=== PATIENT | female | born 1950 | race Caucasian/White ===

== ENCOUNTER → 2016-10-03 | Outpatient (CLI) | payer OTHER, MEDICARE ==
[~2016-10-03] MED LIST: ATEN-175 PO; CALCTAB5 PO; CHOL1000 PO; CIPR1TAB10 PO; ERGO1CAP35 PO; LEVO50TA6 PO; OMEP10CA4 PO; OMEP20TA; OXYC-57 PO; PSYL55.43 PO
--- NOTE | 2016-10-03 14:41 | DIAGNOSTIC IMAGING REPORT ---
L-SPINE MIN 4 VIEWS ROUTINE CLINICAL HISTORY: Low back pain. COMPARISON: CT of the abdomen and pelvis April 15, 2013. FINDINGS: Alignment of the lumbar spine is anatomic. No acute fracture is identified. Slight concavity of several endplates is likely chronic and related to degenerative disc disease. Mild to moderate multilevel degenerative disc disease and facet arthrosis is present. IMPRESSION: 1. Mild to moderate multilevel degenerative disc disease and facet arthrosis of the lumbar spine. 2. No acute lumbar spine fracture or subluxation identified. Electronically signed by: Florentino Cervantes M.D. 10/03/2016 2:39 PM Dictated Date/Time: 10/03/2016 2:37 PM
== END | disposition home or self-care (01) ==
LOC: C.RADBC 14:18
PROVIDERS: ATTEND Internal Medicine Geriatric Medicine
DX: M54.5 Low back pain (principal); M51.36 Other intervertebral disc degeneration, lumbar region

== ENCOUNTER 2016-12-08 00:57 | Inpatient (IN) | payer OTHER, MEDICARE ==
[2016-12-08] VITALS (10 sets, daily range): BP systolic 118–169; BP diastolic 70–110; PULSE 64–102; TEMP 34.6–36.7; O2SAT 92–99; Ht 162.6 cm; Wt 109.0 kg
[~2016-12-08] VITALS: Ht 162.6 cm; Wt 109.0 kg
[~2016-12-08 00:57] MED LIST changes: -CHOL1000 PO; -CIPR1TAB10 PO; -OMEP10CA4 PO; -OXYC-57 PO
[2016-12-08] MEDS ORDERED: ONDANSETRON INJ 2 MG/ML 2 ML VIAL ONE ×2 (01:23→12:56)
[2016-12-08] MEDS ORDERED: SODIUM CHLORIDE 0.9% 1000ML 1,000 ML IV STA (01:52)
[2016-12-08] MEDS ORDERED: MoRPHine SULFATE 4 MG/ML 1 ML CARP\\VIAL IV STA (01:52)
[2016-12-08] MEDS ORDERED: SODIUM CHLORIDE 0.9% 500ML 500 ML IV STA (01:52)
[2016-12-08] MEDS ORDERED: ONDANSETRON INJ 2 MG/ML 2 ML VIAL IV STA (01:52)
--- NOTE | 2016-12-08 01:53 | EMERGENCY ROOM VISIT NOTE ---
History Report prepared by Mook: Katie Caballero Under the Supervision of: Dr. Saritha Morley M.D. First contact with patient: 01:07 Chief Complaint: ABDOMINAL PAIN Stated Complaint: SEVERE ABDOMINAL PAIN,VOMITING Nursing Triage Summary: pt reports NV with abdominal cramps started at 2300, pain radiates to back, denies urinary sx at this time History of Present Illness The patient is a 66 year old female who presents to the Emergency Room with complaints of intermittent, worsening, severe generalized abdominal cramps starting about 2 hours ago. She also complains of mid-lower back pain. She also reports occasional left sided chest pain. She describes it as contractions. The pain lasts for about 5-10 minutes at a time and she can almost time it. She currently rates a pain intensity of 8/10. She has worsening pain with lying down in a supine position. She has pain improvement with sitting up and bending forward. She has not taken anything for the pain. She has had 4 vomiting episodes since the onset of the pain. She describes the emesis to be watery and orange in quality. She has a history of similar symptoms occurring about a month ago which lasted for about an hour. The pain had resolved at the time with Tylenol. She denies any recent ill contacts or new foods. She denies any fevers, chills, jaw pain, arm pain, diaphoresis, shortness of breath, urinary symptoms, lower extremity edema, or any other complaints. She has a history of hypertension and hypercholesteremia. She denies any history of cholecystectomy. Source of History: patient Onset: about 2 hours ago Position: abdomen (generalized) Symptom Intensity: 8/10 Quality: cramping Timing: intermittent, worsening Modifying Factors (Worsening): other (lying down in a supine position) Modifying Factors (Relieving): other (sitting up and bending forward) Associated Symptoms: + back pain, + chest pain, + vomiting, No SOB, No chills, No diaphoresis, No fevers, No urinary symptoms Review of Systems See HPI for pertinent positives & negatives. A total of 10 systems reviewed and were otherwise negative. Past Medical & Surgical Medical Problems: (1) Benign hypertension (2) Hernia of small intestine (3) Hypercholesteremia (4) Hypertension (5) Replacement of total knee joint (6) Urinary symptom or sign (7) Ventral hernia without obstruction or gangrene Family History Heart disease Hypertension Social History Smoking Status: Never Smoker Marital Status: Housing Status: lives with family Occupation Status: retired Current/Historical Medications Scheduled Atenolol (Tenormin), 100 MG PO DAILY Cholecalciferol (Vitamin D3), 1,000 UNITS PO DAILY Levothyroxine Sodium (Levothyroxine Sodium), 50 MCG PO DAILY Omeprazole (Prilosec), 10 MG PO QAM Allergies Coded Allergies: Ramipril (Verified Allergy, Severe, ANGIOEDEMA, 12/08/16) Amlodipine (Verified Allergy, Unknown, unknown, 12/08/16) Chlorthalidone (Verified Allergy, Unknown, unknown, 12/08/16) Doxycycline (Verified Allergy, Unknown, unknown, 12/08/16) Spironolactone (Verified Allergy, Unknown, unknown, 12/08/16) Valsartan (Verified Allergy, Unknown, unknown, 12/08/16) Lisinopril (Verified Adverse Reaction, Unknown, HEADACHE, 12/08/16) Uncoded Allergies: PENICILLILN (Allergy, Unknown, unknown, 12/08/16) SULFA (Allergy, Unknown, hives, 04/11/14) Physical Exam Vital Signs Date Time Temp Pulse Resp B/P Pulse Ox O2 Delivery O2 Flow Rate FiO2 12/08/16 00:59 62 20 191/96 97 Room Air Physical Exam Vital signs reviewed. General: Elderly, well-appearing, in no significant distress. HEENT: No scleral icterus, PERRLA, neck supple. Atraumatic. Cardiovascular: Regular rate and rhythm, no extra sounds. Pulmonary: Clear to auscultation bilaterally, normal work of breathing. Abdomen: Obese, soft, tenderness to palpation in the epigastric region and right upper quadrant, nondistended, positive bowel sounds. Umbilical hernia approximately 3-4 cm, mildly tender, easily reducible, no tympany to percussion. Musculoskeletal: Atraumatic, no peripheral edema. Neurologic: Patient awake alert and oriented x 3 Skin: Warm, dry, no rash Medical Decision & Procedures ER Provider Diagnostic Interpretation: X-ray results as stated below per interpretation by me: CHEST/ABDOMEN X-RAY Clear, non-obstructive, bowel gas pattern. CT and US results as stated below per my review and radiologist interpretation: US RUQ Question fatty infiltration of the liver. Sludge. Negative sonographic [place] . No gallbladder wall thickening. Remainder of examination is within normal limits. Radiologist: Kurt Taveras MD CT ABDOMEN AND PELVIS A short segment of small bowel herniates through a small defect in the ventral abdominal wall. At this site, the small bowel demonstrates wall thickening with surrounding mesenteric edema/stranding. This may be secondary to early strangulation. Correlate with site of pain. Surgical consultation recommended. The exiting loop of bowel is decompressed while be approaching loop of bowel is mildly prominent and fluid-filled. No rafi dilatation to suggest obstruction at this time. Remainder of examination shows no definite evidence for an additional acute inflammatory process. Radiologist: Kurt Taveras MD Laboratory Results 12/08/16 01:15 Red Blood Count 5.79, Mean Corpuscular Volume 86.4, Mean Corpuscular Hemoglobin 30.2, Mean Corpuscular Hemoglobin Concent 35.0, Mean Platelet Volume 11.0, Neutrophils (%) (Auto) 74.4, Lymphocytes (%) (Auto) 17.6, Monocytes (%) (Auto) 6.8, Eosinophils (%) (Auto) 0.8, Basophils (%) (Auto) 0.2, Neutrophils # (Auto) 9.58, Lymphocytes # (Auto) 2.27, Monocytes # (Auto) 0.87, Eosinophils # (Auto) 0.10, Basophils # (Auto) 0.03 12/08/16 01:15 Test 12/08/16 01:15 12/08/16 02:18 12/08/16 03:30 12/08/16 04:58 White Blood Count 12.87 K/uL (4.8-10.8) Red Blood Count 5.79 M/uL (4.2-5.4) Hemoglobin 17.5 g/dL (12.0-16.0) Hematocrit 50.0 % (37-47) Mean Corpuscular Volume 86.4 fL (80-100) Mean Corpuscular Hemoglobin 30.2 pg (25-34) Mean Corpuscular Hemoglobin Concent 35.0 g/dl (32-36) Platelet Count 268 K/uL (130-400) Mean Platelet Volume 11.0 fL (7.4-10.4) Neutrophils (%) (Auto) 74.4 % Lymphocytes (%) (Auto) 17.6 % Monocytes (%) (Auto) 6.8 % Eosinophils (%) (Auto) 0.8 % Basophils (%) (Auto) 0.2 % Neutrophils # (Auto) 9.58 K/uL (1.4-6.5) Lymphocytes # (Auto) 2.27 K/uL (1.2-3.4) Monocytes # (Auto) 0.87 K/uL (0.11-0.59) Eosinophils # (Auto) 0.10 K/uL (0-0.5) Basophils # (Auto) 0.03 K/uL (0-0.2) RDW Standard Deviation 45.9 fL (36.4-46.3) RDW Coefficient of Variation 14.5 % (11.5-14.5) Immature Granulocyte % (Auto) 0.2 % Immature Granulocyte # (Auto) 0.02 K/uL (0.00-0.02) Anion Gap 10.0 mmol/L (3-11) Est Creatinine Clear Calc Drug Dose 54.6 ml/min Estimated GFR () 53.8 Estimated GFR (Non- 46.4 BUN/Creatinine Ratio 7.8 (10-20) Calcium Level 9.4 mg/dl (8.5-10.1) Total Bilirubin 0.6 mg/dl (0.2-1) Direct Bilirubin 0.1 mg/dl (0-0.2) Aspartate Amino Transf (AST/SGOT) 18 U/L (15-37) Alanine Aminotransferase (ALT/SGPT) 27 U/L (12-78) Alkaline Phosphatase 129 U/L (45-117) Total Creatine Kinase 82 U/L (26-192) Creatine Kinase MB 1.7 ng/ml (0.5-3.6) Creatine Kinase MB Ratio 2.1 (0-3.0) Total Protein 8.4 gm/dl (6.4-8.2) Albumin 3.8 gm/dl (3.4-5.0) Lipase 112 U/L (73-393) Bedside Troponin I 0.000 ng/ml (0-0.045) Urine Color YELLOW Urine Appearance CLEAR (CLEAR) Urine pH 6.5 (4.5-7.5) Urine Specific [place] 1.015 (1.000-1.030) Urine Protein NEG (NEG) Urine Glucose (UA) NEG (NEG) Urine Ketones NEG (NEG) Urine Occult Blood NEG (NEG) Urine Nitrite NEG (NEG) Urine Bilirubin NEG (NEG) Urine Urobilinogen NEG (NEG) Urine Leukocyte Esterase NEG (NEG) Bedside Lactic Acid Venous 1.14 mmol/L (0.90-1.70) Laboratory results per my review. Medications Administered Medications (Trade) Dose Ordered Sig/Kaylin Route Start Time Stop Time Status Last Admin Dose Admin Ondansetron HCl 4 mg 4 mg STK-MED ONCE .ROUTE 12/08/16 01:23 12/08/16 01:24 DC 12/08/16 01:23 4 MG Sodium Chloride 500 ml @ 999 mls/hr Q31M STAT IV 12/08/16 01:52 12/08/16 02:22 DC 12/08/16 01:52 999 MLS/HR Sodium Chloride (Nss 1000ml) 1,000 ml @ 125 mls/hr Q8H STAT IV 12/08/16 01:52 12/08/16 09:51 12/08/16 01:52 125 MLS/HR Morphine Sulfate 4 mg 4 mg NOW STAT IV 12/08/16 01:52 12/08/16 01:55 DC 12/08/16 01:59 4 MG Imipenem/ Cilastatin Sodium/ Dextrose (Primaxin Iv/D5 100ml) 110 ml @ 100 mls/hr NOW STAT IV 12/08/16 05:13 12/08/16 06:18 DC 12/08/16 06:16 100 MLS/HR ECG Indication: abdominal pain Rate (beats per minute): 61 Rhythm: normal sinus Findings: no ectopy, other (diffuse T wave flattening) ED Course 0107: Past medical records reviewed. The patient was evaluated in room B04B. A complete history and physical examination was performed. 0123: Zofran Inj 4 mg IV 0152: Morphine Sulfate 4 mg IV, Zofran Inj 4 mg IV, Sodium Chloride 1000 ml @ 125 mls/hr IV, Sodium Chloride 500 ml @ 999 mls/hr IV 0446: I discussed the patient's case with Dr. Barnes, general surgeon with [facility]. 0450: Upon reevaluation, the patient is resting comfortably. I discussed laboratory and radiographic results with resting comfortably. She verbalized agreement of the treatment plan. I spoke with Dr. Almeida of the [facility]. The patient will be evaluated for further management and care. Medical Decision Differential diagnosis: Etiologies such as appendicitis, diverticulitis, PUD, biliary pathology, UTI, pancreatitis, obstruction, mesenteric ischemia, aortic pathology, infections, inflammatory bowel disease, renal colic, as well as others were entertained. This patient was evaluated and appeared to be in some discomfort. IV access was obtained and laboratory work was drawn. The patient was placed on the patient monitor and found to be in a normal sinus rhythm. Physical examination reveals an obese abdomen with periumbilical hernia. This was thought to have been reduced on exam. Ultrasound of right upper quadrant reveals no acute gallbladder abnormality. CT scan of the abdomen and pelvis reveals an umbilical hernia with a loop of bowel. Patient's EKG reveals a normal sinus rhythm without ectopy or ischemia. Patient was given IV morphine and Zofran for her discomfort. Case was discussed with Dr. Barnes of general surgery who will evaluate the patient later this morning. The patient will be evaluated by the hospitalist service for admission and further management. Consults Time Called: [phone] Consulting Physician: Dr. Barnes, general surgeon with [facility] Returned Call: [phone] I discussed the patient's case with Dr. Barnes, general surgeon with [facility]. Additional Consults: Time Called: [phone] Consulted Physician: Dr. Almeida of the [facility] Returned Call: [phone] Additional Comments: [facility] Impression Primary Impression: Small bowel obstruction Additional Impression: Periumbilical hernia Scribe Attestation The scribe's documentation has been prepared under my direction and personally reviewed by me in its entirety. I confirm that the note above accurately reflects all work, treatment, procedures, and medical decision making performed by me. Departure Information Dispostion Being Evaluated By Hospitalist Referrals Rafi Borden M.D. (PCP) Patient Instructions My [facility] Problem Qualifiers
[2016-12-08 02:11] LABS: BASO % 0.2 %; BASO ABS # 0.03 K/uL (0-0.2); COMPLETE YES; EOS % 0.8 %; IG% 0.2 %; LYMPH % 17.6 %; LYMPH ABS # 2.27 K/uL (1.2-3.4); MEAN CELL VOLUME 86.4 fL (80-100); MEAN CORPUSCULAR HEMOGLOBIN 30.2 pg (25-34); MONO % 6.8 %; NEUT % 74.4 %; PLATELET COUNT 268 K/uL (130-400); RED BLOOD COUNT 5.79 M/uL (4.2-5.4); WHITE BLOOD COUNT 12.87 K/uL (4.8-10.8)
[2016-12-08 02:31] LABS: BUN/CREATININE RATIO 7.8 (10-20); CALCIUM 9.4 mg/dl (8.5-10.1); CREATININE 1.2 mg/dl (0.60-1.20); POTASSIUM 3.6 mmol/L (3.5-5.1)
[2016-12-08 02:36] LABS: CKMB/CK RATIO 2.1 (0-3.0)
[2016-12-08] MEDS ORDERED: OMEP10CA4 PO (03:23)
[2016-12-08] MEDS ORDERED: CHOL1000 PO (03:40)
[2016-12-08] MEDS ORDERED: OPTIRAY 320 IV PRN (03:45)
[2016-12-08 04:20] LABS: URINE APPEARANCE CLEAR (CLEAR); URINE BILIRUBIN NEG (NEG); URINE COLOR YELLOW; URINE NITRITE NEG (NEG); URINE PH 6.5 (4.5-7.5); URINE SPECIFIC GRAVITY 1.015 (1.000-1.030); UROBILINOGEN NEG (NEG); ZZUR CULT IF INDIC CLEAN CATCH NO
[2016-12-08 04:27] LABS: MANUAL MICROSCOPIC REQUIRED? NO; REVIEW REQ? NO
[2016-12-08] MEDS ORDERED: IMIPENEM/CILASTATIN IV 500 MG in DEXTROSE 5% 100ML 100 ML IV STA (05:13)
[2016-12-08] MEDS ORDERED: MoRPHine SULFATE 2 MG/ML CARP IV PRN (05:15)
[2016-12-08] MEDS ORDERED: MoRPHine SULFATE 4 MG/ML 1 ML CARP\\VIAL IV PRN (05:15)
[2016-12-08] MEDS ORDERED: ACETAMINOPHEN IV 100 ML IV PRN (05:15)
[2016-12-08] MEDS ORDERED: ONDANSETRON INJ 2 MG/ML 2 ML VIAL IV PRN ×2 (05:15→12:45)
[2016-12-08] MEDS ORDERED: HydrALAZINE HCL 20 MG/ML VIAL IV. PRN (05:30)
--- NOTE | 2016-12-08 05:50 | History and Physical ---
History & Physical Date & Time of Service: Dec 08, 2016 at 05:35 Chief Complaint: Severe Abdominal Pain,Vomiting Primary Care Physician: Mario Borden M.D. History of Present Illness Source: patient, spouse This patient is a 66-year-old female presents to the emergency department with complaint of intermittent, worsening, severe centralized abdominal crampy pain that began about 11:00 this evening prior to arrival. She also has mid lower back pain. The abdominal pain feels like contractions with duration of proximally 5-10 minutes at a time. She presented to the emergency department because of worsening pain and 4 vomiting episodes. She reports a similar type of symptoms occurred about 6 weeks ago, and she took ibuprofen at that time and just rested and the pain went away. She's had no recent travel, no sick contacts, and hasn't any questionable foods. She does report that she did not have much of an appetite for supper tonight and thinks that that might be the beginning of her symptoms. She does have a history of hernia repair in approximately 2012. Past Medical/Surgical History Medical Problems: (1) Benign hypertension Status: Chronic (2) Hypercholesteremia Status: Chronic (3) Hypertension Status: Chronic (4) Replacement of total knee joint Status: Resolved (5) Urinary symptom or sign Status: Resolved Family History Heart disease Hypertension Social History Smoking Status: Never Smoker Smokeless Tobacco Use: No Alcohol Use: none Drug Use: none Marital Status: Housing status: lives with family Occupational Status: retired Immunizations History of Influenza Vaccine: Yes History of Tetanus Vaccine?: Unknown History of Pneumococcal: Unknown History of Hepatitis B Vaccine: Unknown Multi-Drug Resistant Organisms History of MDRO: No Allergies Coded Allergies: Ramipril (Verified Allergy, Severe, ANGIOEDEMA, 12/08/16) Amlodipine (Verified Allergy, Unknown, unknown, 12/08/16) Chlorthalidone (Verified Allergy, Unknown, unknown, 12/08/16) Doxycycline (Verified Allergy, Unknown, unknown, 12/08/16) Spironolactone (Verified Allergy, Unknown, unknown, 12/08/16) Valsartan (Verified Allergy, Unknown, unknown, 12/08/16) Lisinopril (Verified Adverse Reaction, Unknown, HEADACHE, 12/08/16) Uncoded Allergies: PENICILLILN (Allergy, Unknown, unknown, 12/08/16) SULFA (Allergy, Unknown, hives, 04/11/14) Home Medications Scheduled Atenolol (Tenormin), 100 MG PO DAILY Cholecalciferol (Vitamin D3), 1,000 UNITS PO DAILY Levothyroxine Sodium (Levothyroxine Sodium), 50 MCG PO DAILY Omeprazole (Prilosec), 10 MG PO QAM Review of Systems The patient denies chest pain, palpitations, shortness of breath, cough, lower extremity swelling, vision change, hearing change, sore throat, fevers, chills, sweats, weight change, blood in urine or stool, dysuria, urinary frequency or urgency, lightheadedness, dizziness, headache, memory loss, rash, abnormal bruising or bleeding, imbalance, focal or generalized weakness, numbness or tingling in arms or legs, arthralgias or myalgias, neck pain, night sweats, or allergy symptoms. The review of systems is otherwise negative other than for that already noted above, and at least 10 systems have been reviewed. Physical Exam Vital Signs Date Time Temp Pulse Resp B/P Pulse Ox O2 Delivery O2 Flow Rate FiO2 12/08/16 00:59 62 20 191/96 97 Room Air The patient is awake, well-developed and adequately nourished, alert and oriented 3, normocephalic and atraumatic, lying in bed and in no acute distress. HEENT--PERRL, EOMI, mucous membranes and oropharynx dry. Neck--supple, no JVD or bruits, thyroid normal, trachea midline, no adenopathy. Heart--normal S1 and S2, no extra beats, no murmurs, rubs or gallops. Lungs--clear bilaterally with good air movement, no respiratory distress, no accessory muscle use. Abdomen--normal bowel sounds and soft, mild supraumbilical tenderness and nondistended, ventral hernia has been reduced by ED staff. Extremities--no cyanosis, clubbing or edema. There are good distal pulses b/l. Dermatologic--normal skin turgor, normal color, warm and dry, no abnormal lymph nodes, no rash. Neurologic--cranial nerves II through XII grossly intact, motor and sensory examination normal. Rheumatologic--normal range of motion, nontender, muscles and joints. Psychiatric--normal affect. Diagnostics Laboratory Results Results Past 24 Hours Test 12/08/16 01:15 12/08/16 02:18 12/08/16 03:30 12/08/16 04:58 Range/Units White Blood Count 12.87 4.8-10.8 K/uL Red Blood Count 5.79 4.2-5.4 M/uL Hemoglobin 17.5 12.0-16.0 g/dL Hematocrit 50.0 37-47 % Mean Corpuscular Volume 86.4 80-100 fL Mean Corpuscular Hemoglobin 30.2 25-34 pg Mean Corpuscular Hemoglobin Concent 35.0 32-36 g/dl Platelet Count 268 130-400 K/uL Mean Platelet Volume 11.0 7.4-10.4 fL Neutrophils (%) (Auto) 74.4 % Lymphocytes (%) (Auto) 17.6 % Monocytes (%) (Auto) 6.8 % Eosinophils (%) (Auto) 0.8 % Basophils (%) (Auto) 0.2 % Neutrophils # (Auto) 9.58 1.4-6.5 K/uL Lymphocytes # (Auto) 2.27 1.2-3.4 K/uL Monocytes # (Auto) 0.87 0.11-0.59 K/uL Eosinophils # (Auto) 0.10 0-0.5 K/uL Basophils # (Auto) 0.03 0-0.2 K/uL RDW Standard Deviation 45.9 36.4-46.3 fL RDW Coefficient of Variation 14.5 11.5-14.5 % Immature Granulocyte % (Auto) 0.2 % Immature Granulocyte # (Auto) 0.02 0.00-0.02 K/uL Sodium Level 139 136-145 mmol/L Potassium Level 3.6 3.5-5.1 mmol/L Chloride Level 101 98-107 mmol/L Carbon Dioxide Level 28 21-32 mmol/L Anion Gap 10.0 3-11 mmol/L Blood Urea Nitrogen 9 7-18 mg/dl Creatinine 1.20 0.60-1.20 mg/dl Est Creatinine Clear Calc Drug Dose 54.6 ml/min Estimated GFR () 53.8 Estimated GFR (Non- 46.4 BUN/Creatinine Ratio 7.8 10-20 Random Glucose 107 70-99 mg/dl Calcium Level 9.4 8.5-10.1 mg/dl Total Bilirubin 0.6 0.2-1 mg/dl Direct Bilirubin 0.1 0-0.2 mg/dl Aspartate Amino Transf (AST/SGOT) 18 15-37 U/L Alanine Aminotransferase (ALT/SGPT) 27 12-78 U/L Alkaline Phosphatase 129 45-117 U/L Total Creatine Kinase 82 26-192 U/L Creatine Kinase MB 1.7 0.5-3.6 ng/ml Creatine Kinase MB Ratio 2.1 0-3.0 Total Protein 8.4 6.4-8.2 gm/dl Albumin 3.8 3.4-5.0 gm/dl Lipase 112 73-393 U/L Bedside Troponin I 0.000 0-0.045 ng/ml Urine Color YELLOW Urine Appearance CLEAR CLEAR Urine pH 6.5 4.5-7.5 Urine Specific [place] 1.015 1.000-1.030 Urine Protein NEG NEG Urine Glucose (UA) NEG NEG Urine Ketones NEG NEG Urine Occult Blood NEG NEG Urine Nitrite NEG NEG Urine Bilirubin NEG NEG Urine Urobilinogen NEG NEG Urine Leukocyte Esterase NEG NEG Bedside Lactic Acid Venous 1.14 0.90-1.70 mmol/L EKG EKG shows normal sinus rhythm at 61 bpm, there are no acute ST-T changes. Impression Assessment and Plan This short segment of small bowel herniating through a small defect in the ventral abdominal wall--radiology reports the suggestion of a possible early strangulation, however, the hernia was reduced by the ED department and the patient's symptoms have resolved. She'll be admitted to the medical surgical floor, kept nothing by mouth, placed on normal saline with KCl 20 mEq at 100 ML' s per hour, Primaxin 500 mg IV every 6 hours, Zofran 4 mg IV every 6 hours when necessary, pantoprazole 40 mg IV daily. Surgical consult was made in the emergency department and will see the patient in the morning. Hypertension--hold atenolol 100 mg by mouth daily. Start Catapres TTS-1 patch weekly, and hydralazine 10 mg IV every 4 hours for systolic blood pressure > 150. Hypothyroidism--change levothyroxine 50 g by mouth daily to 25 g IV daily. GERD--change omeprazole 10 mg by mouth every morning to pantoprazole 40 mg IV daily. Level of Care Med/Surg Advanced Directives Existing Advance Directive: No Existing Living Will: No Existing Power of Inspector Optical Instrument: No Resuscitation Status FULL RESUSCITATION VTE Prophylaxis VTE Risk Assessment Done? Y/N: Yes Risk Level: Moderate Given or contraindicated: SCD's Social Service Consult None Apply
--- NOTE | 2016-12-08 07:32 | DIAGNOSTIC IMAGING REPORT ---
ABDOMEN AND PELVIS CT WITH IV CONTRAST CT DOSE: 1755.68 mGy.cm HISTORY: Pain. Nausea. epigastric pain and tenderness TECHNIQUE: Multiaxial CT images of the abdomen and pelvis were performed following the use of intravenous contrast. COMPARISON STUDY: 04/15/2013 FINDINGS: Periumbilical hernia containing a small medical of small bowel. This is colonic bowel pattern is nonobstructive. Liver spleen and pancreas are unremarkable. Kidneys negative for hydronephrosis. Partially obstructing. IMPRESSION: Periumbilical hernia demonstrated a small partially incarcerated loop of small bowel with partial obstructive change. Electronically signed by: Kenny Denton M.D. 12/08/2016 7:30 AM Dictated Date/Time: 12/08/2016 7:28 AM
--- NOTE | 2016-12-08 07:38 | CONSULTATION REPORT ---
DATE OF CONSULTATION: 12/08/2016 Seen in the Emergency Room at 5:30 in the morning. SUMMARY: This is a 66-year-old female. I was called by Dr. Morley after she had reduced an incarcerated umbilical hernia. She obtained a CAT scan which shows probably a loop of bowel that has been in there, maybe still some edematous. The patient's past medical history is positive for in 2012, she came in with a strangulated umbilical hernia. At that time, it was repaired with no mesh placement due to the acute situation. The patient was doing well until recently last evening when she started not feeling as well or appetite was as good, she could not really pinpoint the exact etiology, and then started to develop periumbilical pain which led to her coming to the Emergency Room with the above treatments. Her past surgical history is positive for having had some knee surgery in the past and umbilical hernia repair. She has had a history of sciatica also. SHE HAS NUMEROUS ALLERGIES THAT ARE LISTED ON THE ADMISSION SHEET. She also has significant number of medicines, which are listed in rec sheet. She does have a history of hypertension but denies any history of cardiac disease or any pulmonary disease. On admission to the Emergency Room at 4:20, her pulse was 62, respiration 20, blood pressure 191/96, O2 sats 97 on room air. Her weight is BMI of 40.6. Laboratory study showed her to have WBCs of 12.87, she does have a left shift. Chemistries: BUN of 9 and creatinine 1.20. PHYSICAL EXAMINATION: GENERAL: At this time, the patient is resting comfortable, not really complaining of any pain. HEAD: Normocephalic. EYES: PERRLA. NECK: Carotid without any bruit. There is no cervical lymphadenopathy. HEART: Normal sinus rhythm, no murmurs. LUNGS: Clear to auscultation. ABDOMEN: Soft, it is not distended. There is no tenderness. There is no cellulitis or any edema around the umbilical area. A transverse incision was used during the previous repair. On palpating that area, I could feel the defect and I am not sure if there is a loop of bowel that possibly may be in and out in that area. EXTREMITIES: Grossly normal. There is no peripheral edema. At this point, given the situation that she has had a recurrence and also was able to be reduced and there is no sign of acute strangulation, I went over with the patient and her my recommendations are to proceed with an open repair at this time while she is in a semi-quiescent state and possibly place some mesh in the area. This was gone over with the patient and her considerably. They are concerned about mesh placement due to all the advertising on television, what are its problems, but usually that is a different placement down into the pelvic area that are causing those issues. They are also aware that if primarily repair this without any mesh, there is a likelihood that she will recur again. At the present time, risks and complications were explained to the patient. It was cleared the possibility of placing a drain if she does decide for surgery and including recurrence. She is undecided at this time whether or not she wants to proceed with surgery. At this point, I told her I will put her on the operating room schedule and plan to do later on this morning. She can cancel at any time if she doesn't want surgery . KILLIAN
--- NOTE | 2016-12-08 07:42 | DIAGNOSTIC IMAGING REPORT ---
ABDOMEN 2VIEW W/PA CHEST RTN CLINICAL HISTORY: SBO dyspnea COMPARISON STUDY: No previous studies for comparison. FINDINGS: The soft tissues, psoas shadows, renal outlines and intestinal gas pattern appear normal. There is no evidence for bowel obstruction. There is no evidence for free intraperitoneal air. No abnormal abdominal calcifications are seen. A frontal view of the chest was performed and is unremarkable. IMPRESSION: Normal study. Electronically signed by: Kenny Denton M.D. 12/08/2016 7:41 AM Dictated Date/Time: 12/08/2016 7:40 AM
--- NOTE | 2016-12-08 07:44 | DIAGNOSTIC IMAGING REPORT ---
GALLBLADDER-ABD LIMITED CLINICAL HISTORY: RUQ pain TECHNIQUE: Ultrasound COMPARISON STUDY: None FINDINGS: Fatty infiltration of liver. Normal gallbladder. Trace gallbladder sludge. Common mild left 4 mm. Pancreas and right kidney unremarkable. IMPRESSION: Trace gallbladder sludge. Normal caliber bile duct. Fatty infiltration of liver. Electronically signed by: Kenny Denton M.D. 12/08/2016 7:42 AM Dictated Date/Time: 12/08/2016 7:41 AM
[2016-12-08] MEDS ORDERED: CLONIDINE HCL 0.1 MG/24 HR TRANSDERM SYS TD SCH (08:00)
[2016-12-08] MEDS ORDERED: BACITRACIN 50000 UNIT VIAL ONE (08:10)
[2016-12-08] MEDS ORDERED: BUPIVACAINE/EPINEPHRINE 0.5% MPF 1:200,000 30 ML VIAL ONE (08:11)
[2016-12-08] MEDS ORDERED: IMIPENEM/CILASTATIN CONSULT ACTIVE PRN (08:15)
[2016-12-08] MEDS: LEVOTHYROXINE SODIUM INJ 25 MCG in SYRINGE 0 ML IV SCH (09:26)
[2016-12-08] MEDS: NSS + 20MEQ KCL 1000ML 1,000 ML IV SCH ×2 (09:31→20:23)
[2016-12-08] MEDS ORDERED: MIDAZOLAM HCL 1 MG/ML 2ML VIAL ONE (11:08)
[2016-12-08] MEDS ORDERED: FENTANYL CITRATE INJ 50 MCG/1 ML 2 ML VIAL ONE (11:09)
[2016-12-08] MEDS: PANTOprazole INJ 40 MG in SYRINGE 0 ML IV SCH (11:14)
[2016-12-08] MEDS ORDERED: LACTATED RINGER'S 1000ML 1,000 ML IV PRN (12:40)
[2016-12-08] MEDS ORDERED: KETOROLAC TROMETHAMINE 15 MG/ML VIAL IV. SCH (12:45)
[2016-12-08] MEDS ORDERED: EpHEDrine SULFATE 50MG/5ML SYR ONE (12:56)
[2016-12-08] MEDS ORDERED: LIDOCAINE HCL 2% 2 ML VIAL (20MG/ML) ONE (12:56)
[2016-12-08] MEDS ORDERED: LARYING-O-JET KIT (LTA) EXT ONE ×2 (12:56)
[2016-12-08] MEDS ORDERED: NEOSTIGMINE METHYLSULFATE 5 MG/5 ML SYR ONE (12:56)
[2016-12-08] MEDS ORDERED: SUCCINYLCHOLINE CHLORIDE 20 MG/ML 10 ML VIAL IV ONE (12:56)
[2016-12-08] MEDS ORDERED: PROPOFOL IV EMULSION 10 MG/ML 20 ML VIAL IV ONE (12:56)
[2016-12-08] MEDS ORDERED: GLYCOPYRROLATE INJ 0.2 MG/ML VIAL ONE (12:56)
[2016-12-08] MEDS ORDERED: DEXAMETHASONE SOD INJ 4 MG/ML VIAL ONE (12:56)
[2016-12-08] MEDS ORDERED: ROCURONIUM BROMIDE 10 MG/ML 5 ML VIAL ONE (12:56)
--- NOTE | 2016-12-08 13:51 | [facility] Post Operative Brief Note ---
Immediate Operative Summary Operative Date Dec 08, 2016. Pre-Operative Diagnosis Umbilical hernia recurrent incarcerated Post-Operative Diagnosis Incarcerated umbilical hernia Procedure(s) Performed Umbilical hernia repair with mesh onlay(compartment seperation) Surgeon Dr Barnes [employer] Supervisor Surgeon(s) Clifton Edward PA-C/ Aline Yanes PA-C Estimated Blood Loss 10ML Findings incarcerated umbilical rec hernia defect candido 8 cm Specimens NONE Drains 2 #15 round Jose Rafael
[2016-12-08] MEDS: FENTANYL CITRATE INJ 50 MCG/1 ML 2 ML VIAL IV PRN ×3 (14:06→14:16)
--- NOTE | 2016-12-08 14:29 | Anesthesiology Progress Note ---
Anesthesia Post Op Note Date & Time Dec 08, 2016 at 14:28 Vital Signs Pain Intensity: 5 Vital Signs Past 12 Hours Date Time Temp Pulse Resp B/P Pulse Ox O2 Delivery O2 Flow Rate FiO2 12/08/16 14:25 36.2 56 14 151/72 96 Nasal Cannula 2 12/08/16 14:15 56 14 166/92 94 Nasal Cannula 2 12/08/16 14:05 72 14 176/83 98 Mask 10 12/08/16 13:57 36.2 71 14 174/83 99 Mask 10 12/08/16 11:40 36.7 60 20 134/65 96 Room Air 12/08/16 08:20 Room Air 12/08/16 06:34 36.7 69 17 143/82 98 Room Air 12/08/16 06:17 64 18 142/74 94 12/08/16 05:57 60 18 142/74 95 Room Air Notes Mental Status: alert / awake / arousable, participated in evaluation Pt Amnestic to Procedure: Yes Nausea / Vomiting: adequately controlled Pain: adequately controlled Airway Patency, RR, SpO2: stable & adequate BP & HR: stable & adequate Hydration State: stable & adequate Anesthetic Complications: no major complications apparent Pt doing well.
--- NOTE | 2016-12-08 14:40 | OPERATIVE REPORT ---
DATE OF OPERATION: 12/08/2016 PREOPERATIVE DIAGNOSIS: Recurrent umbilical hernia. POSTOPERATIVE DIAGNOSIS: Same with defect approximately 8 centimeter. PROCEDURE: Open repair with compartment separation onlay Marlex mesh. SURGEON: Dr. Barnes. SUCTION DRUM DRIER OPERATOR: Tony Edward PA-C and Aline Yanes PA-C. OPERATION AND FINDINGS: SUMMARY: The patient was brought into the operating room theater. The abdomen was scrubbed, prepped with Betadine scrubbing solution and properly draped. Systemic antibiotics had been given on the floor. At this point, we made up and down incision. Previously she had a hernia repair which was transverse supraumbilical incision, made the incision extending approximately 8-9 cm long, deepened through subcutaneous tissue. We were met with some edema in the subcutaneous tissue but no real incarcerated tissue was appreciated. The patient had the hernia sac that was adherent pretty significant almost of the subcutaneous tissue. We circumferentially started taking it down from the subQ leaving the umbilical area free. There was no violation of the umbilical opening at the skin level. Then we meticulously dissected this all out from the abdominal wall. We were able then to identify that the hernial sac was sort of multilobulated. We entered it and found that this was just omentum. There was no small bowel in the area but everything was reducible. I then closed the hernial sac with a chromic suture, was another small opening in the hernia sac was similarly closed. We were able then to try to return this all intraabdominally. I did not want to proceed and freed up from the wall of the hernial sac feeling that I would get into the bowel. Therefore, at this point, I elected to do compartment separation by first extending our dissection laterally well beyond the initial opening onto the rectus sheath. We then scored the rectus seated above and below the anterior SCDs sufficient enough that we would close this over once we freed it up from the rectus abdominis imbricating over the midline incision with #1 PDS. This held the contents of the hernia and all the contents free from the subcutaneous tissue. At this point, we then brought in a sheet of Marlex mesh soaked with antibiotic was in place and we sutured it with 2-0 nylon onto the edge of the line of resection of anterior rectus sheath laterally in a continuous fashion. The mesh was intentionally left a little bit loose. The area was checked for hemostasis and appeared satisfactory. We placed two 15 round Jose Rafael drains through the subcutaneous tissue onto the mesh, attached to skin edges 2-0 silk. Then we closed subQ and the mesh with a running interrupted 2-0 Vicryl and saqib for skin edges. Dressing was applied. The procedure was tolerated well by the patient. Estimated blood loss approximately 10 mL. The patient was taken to recovery room in good condition. I attest to the content of the Intraoperative Record and any orders documented therein. Any exceptions are noted below. MTDD
[2016-12-08] MEDS: IMIPENEM/CILASTATIN IV 300 MG in DEXTROSE 5% 100ML 100 ML IV SCH ×2 (16:14→20:22)
[2016-12-08] MEDS: CHECK CLONIDINE PATCH PLACEMENT SCH (16:17)
[2016-12-09] VITALS (7 sets, daily range): BP systolic 112–143; BP diastolic 68–79; PULSE 77–92; TEMP 36.3–36.9; O2SAT 92–97
[2016-12-09] MEDS: CHECK CLONIDINE PATCH PLACEMENT SCH ×4 (00:21→23:29)
[2016-12-09] MEDS: IMIPENEM/CILASTATIN IV 300 MG in DEXTROSE 5% 100ML 100 ML IV SCH ×2 (02:09→09:41)
[2016-12-09] MEDS: NSS + 20MEQ KCL 1000ML 1,000 ML IV SCH ×2 (02:09→12:45)
--- NOTE | 2016-12-09 07:24 | Clinical Documentation Query ---
CLINICAL DOCUMENTATION QUERY Dr. BRYAN, In your clinical opinion does this patient have: ( ) morbid obesity with BMI 41.2 ( ) Other explanation of clinical findings (Please Explain) ( ) Unable to determine (Please Define) ( ) Need to Discuss ( ) Not Agree BMI: A significantly high (> 40) BMI will impact the severity of illness and risk of mortality of your patient. However, the physician must document a correlating diagnosis in the medical record. Please clarify and document your clinical opinion in the progress notes and discharge summary. Terms such as "probable", "suspected", "likely", "questionable", "possible", or "still to be ruled out" are acceptable. IF IN AGREEMENT, YOU MUST DOCUMENT ABOVE DIAGNOSTIC STATEMENT IN DAILY PROGRESS NOTES AND DISCHARGE SUMMARY. This document is not part of the patient's record. Thank You, Renae Foley RN [phone]
[2016-12-09] MEDS ORDERED: OXYC-57 PO (07:33)
[2016-12-09] MEDS ORDERED: CIPR1TAB10 PO (07:33)
--- NOTE | 2016-12-09 07:38 | Discharge Instructions ---
Discharge Instructions Date of Service Dec 09, 2016. Admission Reason for Admission: Hernia Of Small Intestine, Ventral Hernia Without Discharge Discharge Diagnosis / Problem: repair of hernia with mesh Discharge Goals Goal(s): Decrease discomfort Activity Recommendations Activity Limitations: as noted below Lifting Limitations: no more than 10 pounds Shower/Bathe: keep incision dry (cover drain to shower) . Instructions / Follow-Up Instructions / Follow-Up Dr. Barnes's office on Monday to have drain removed at 2:00, [address] , call [phone] for any questions Wear binder during the day when up and about, remove at night Current Hospital Diet Patient's current hospital diet: Full Liquid Diet Discharge Diet Recommended Diet: Regular Diet Procedures Procedures Performed: Umbilical hernia repair with mesh onlay(compartment seperation) Pending Studies Studies pending at discharge: no Medical Emergencies . Who to Call and When: Medical Emergencies: If at any time you feel your situation is an emergency, please call 911 immediately. . Non-Emergent Contact Non-Emergency issues call your: Surgeon Call Non-Emergent contact if: you have a fever, temperature is above 101.5, your pain is not controlled . "Provider Documentation" section prepared by Clifton Edward. . VTE Core Measure Inpt VTE Proph given/why not?: SCD's
--- NOTE | 2016-12-09 07:50 | SURGERY PROGRESS NOTE ---
DATE: 12/09/2016 Bronwyn is doing well. She is alert, coherent. She has been up and around the bathroom multiple times probably from the IV fluids. The intraoperative findings were discussed with the patient. Her last vitals showed a temperature of 36.4, pulse 77, respirations 17, blood pressure 127/68, O2 sats 96 on room air. Urine output as stated is about 1050 out. Jose Rafael drains both of them are minimal drainage. The abdomen is soft. The incision is intact without any cellulitis. We will remove one of the Jose Rafael drains; the other one we will leave in. From my point of view the patient could be discharged. She feels a little bit weak yet and would like to stay until tomorrow. I asked that she continue wearing the abdominal binder at all times except when she is in bed and Dr. Ramirez will be covering over the weekend. I asked that she came into the office on Monday to remove the other drain. She can shower. Will send her home on some p.o. antibiotics. I also instructed her on activity and not to lift anything heavier than 10 pounds.
--- NOTE | 2016-12-09 08:09 | Anesthesiology Progress Note ---
Anesthesia Post Op Note Date & Time Dec 09, 2016 at 08:08 Vital Signs Pain Intensity: 0.0 Vital Signs Past 12 Hours Date Time Temp Pulse Resp B/P Pulse Ox O2 Delivery O2 Flow Rate FiO2 12/09/16 07:36 36.4 77 17 127/68 96 Room Air 12/09/16 05:56 36.4 12/09/16 03:26 36.3 83 18 121/70 97 Room Air 12/09/16 00:15 Room Air 12/08/16 23:02 36.6 102 18 118/79 92 Room Air Notes Mental Status: alert / awake / arousable, participated in evaluation Pt Amnestic to Procedure: Yes Nausea / Vomiting: adequately controlled Pain: adequately controlled Airway Patency, RR, SpO2: stable & adequate BP & HR: stable & adequate Hydration State: stable & adequate Anesthetic Complications: no major complications apparent
[2016-12-09 08:25] LABS: BASO % 0.1 %; BASO ABS # 0.01 K/uL (0-0.2); COMPLETE YES; EOS % 0.1 %; IG% 0.2 %; LYMPH % 9.2 %; LYMPH ABS # 1.34 K/uL (1.2-3.4); MEAN CELL VOLUME 87.2 fL (80-100); MEAN CORPUSCULAR HEMOGLOBIN 28.3 pg (25-34); MEAN CORPUSCULAR HGB CONC 32.4 g/dl (32-36); MEAN PLATELET VOLUME 10.3 fL (7.4-10.4); MONO % 8.3 %; NEUT % 82.1 %; PLATELET COUNT 211 K/uL (130-400); WHITE BLOOD COUNT 14.52 K/uL (4.8-10.8)
[2016-12-09 09:04] LABS: BUN/CREATININE RATIO 10.5 (10-20); CALCIUM 8.7 mg/dl (8.5-10.1); CREATININE 0.73 mg/dl (0.60-1.20); MAGNESIUM 2.1 mg/dl (1.8-2.4); POTASSIUM 3.9 mmol/L (3.5-5.1)
[2016-12-09] MEDS: LEVOTHYROXINE SODIUM INJ 25 MCG in SYRINGE 0 ML IV SCH (09:41)
[2016-12-09] MEDS: PANTOprazole INJ 40 MG in SYRINGE 0 ML IV SCH (11:28)
[2016-12-09] MEDS: OXYCODONE/ACETAMINOPHEN 5-325 TAB PO PRN (12:16)
--- NOTE | 2016-12-09 12:19 | Medical Consult ---
Consultation Date of Consultation: Dec 09, 2016. Attending Physician: Amandeep Moya M.D. Reason for Consultation: Primaxin use History of Present Illness Patient is a 66-year-old female presented to the emergency department with complaints of severe abdominal pain for a few hours prior to admission. She stated that she felt like she was having gallbladder pain, but she was not sure which type of pain it was so she presented for evaluation. She states she also was experiencing nausea and vomiting prior to admission as well. The patient does have history of prior hernia repair, but does not feel like this was hernia related pain. On admission, the patient did have a gallbladder ultrasound which showed trace sludge in the gallbladder. Chest/abdominal x-ray was normal, and abdominal/pelvic CT scan showed kosta umbilical hernia with small partially incarcerated loop bowel. Her white blood cell count was mildly elevated to 12.7 on admission, and her creatinine was 1.20. Her AST was 18, ALT 27, and alk-phos 129. She has been afebrile since admission. She is s/p repair of incarcerated umbilical hernia by Dr. Barnes. The patient is currently on IV Primaxin, but upon review of most recent surgical opinion feel that the patient likely can transition to oral therapy. Past Medical/Surgical History Medical Problems: (1) Periumbilical hernia Status: Acute (2) Small bowel obstruction Status: Acute Medical Problems: (1) Benign hypertension (2) Hernia of small intestine (3) Hypercholesteremia (4) Hypertension (5) Replacement of total knee joint (6) Urinary symptom or sign (7) Ventral hernia without obstruction or gangrene Surgical Hx: Hernia repairs (history and recent) Family History Heart disease Hypertension Noncontributory Social History Smoking Status: Never Smoker Smokeless Tobacco Use: No Alcohol Use: none Drug Use: none Marital Status: Housing Status: lives with family Occupation Status: retired Allergies Coded Allergies: Ramipril (Verified Allergy, Severe, ANGIOEDEMA, 12/08/16) Amlodipine (Verified Allergy, Unknown, unknown, 12/08/16) Chlorthalidone (Verified Allergy, Unknown, unknown, 12/08/16) Doxycycline (Verified Allergy, Unknown, unknown, 12/08/16) Penicillins (Verified Allergy, Unknown, UNKNOWN, 12/09/16) Spironolactone (Verified Allergy, Unknown, unknown, 12/08/16) Sulfa Antibiotics (Verified Allergy, Unknown, "SULFA": HIVES, 12/09/16) Valsartan (Verified Allergy, Unknown, unknown, 12/08/16) Lisinopril (Verified Adverse Reaction, Unknown, HEADACHE, 12/08/16) Home Medications Reported Home Medications Medications Dose Route/Sig Max Daily Dose Days Date Category Cipro (Ciprofloxacin Hcl) 500 Mg Tab 1 Tab PO BID 5 12/09/16 Rx Percocet 5MG/325MG (Oxycodone/Acetaminophen) Tab 1-2 Tablets PO Q4H PRN 12/09/16 Rx Vitamin D3 (Cholecalciferol) 1,000 Unit Tab 1,000 Units PO DAILY 12/08/16 Reported Prilosec (Omeprazole) 10 Mg Cap 10 Mg PO QAM 12/08/16 Reported Levothyroxine Sodium 50 Mcg Tab 50 Mcg PO DAILY 10/23/14 Reported Tenormin (Atenolol) 100 Mg Tab 100 Mg PO DAILY 04/15/13 Reported Current Inpatient Medications Current Inpatient Medications Medications (Trade) Dose Ordered Sig/Kaylin Route Start Time Stop Time Status Last Admin Dose Admin Ioversol 100 ml 100 ml UD PRN IV 12/08/16 03:45 12/12/16 03:44 Imipenem/ Cilastatin Sodium 300 mg/Dextrose 106 ml @ 100 mls/hr Q6H IV 12/08/16 12:00 12/18/16 11:59 12/09/16 09:41 100 MLS/HR Levothyroxine Sodium 25 mcg/ Syringe 1.25 ml @ 2 mls/min DAILY@09 IV 12/08/16 09:00 01/07/17 08:59 12/09/16 09:41 2 MLS/MIN Pantoprazole Sodium 40 mg/ Syringe 10 ml @ 5 mls/min DAILY@11 IV 12/08/16 11:00 01/07/17 10:59 12/09/16 11:28 5 MLS/MIN Potassium Chloride/Sodium Chloride 1,000 ml @ 100 mls/hr Q10H IV 12/08/16 06:45 01/07/17 06:44 12/09/16 02:09 100 MLS/HR Acetaminophen (Ofirmev Iv) 100 ml @ 400 mls/hr Q8H PRN IV 12/08/16 05:15 01/07/17 05:14 Ondansetron HCl (Zofran Inj) 4 mg Q6H PRN IV 12/08/16 05:15 01/07/17 05:14 12/08/16 17:33 4 MG Morphine Sulfate (MoRPHine SULFATE INJ) 4 mg Q2H PRN IV 12/08/16 05:15 12/22/16 05:14 12/08/16 17:45 4 MG Hydralazine HCl (HydrALAZINE INJ) 10 mg Q4H PRN IV. 12/08/16 05:30 01/07/17 05:29 12/08/16 16:20 10 MG Clonidine HCl (Smxtwxaf-Yat-6 0.1mg/24hr Patch) 1 patch Th@0800 TD 12/08/16 08:00 01/07/17 07:59 12/08/16 09:27 1 PATCH Miscellaneous (Remove Clonidine Patch) 1 ea Th@0800 N/A 12/15/16 08:00 01/14/17 07:59 Miscellaneous Information (Check Clonidine Patch Placement) 1 ea QS N/A 12/08/16 16:00 01/07/17 15:59 12/09/16 09:41 1 EA Imipenem/ Cilastatin Sodium (Consult) 1 ea UD PRN N/A 12/08/16 08:15 01/07/17 08:14 Oxycodone/ Acetaminophen (Percocet 5-325mg Tab) 1 tab Q4H PRN PO 12/08/16 14:00 12/22/16 13:59 Review of Systems Constitutional: No chills, No fever, No sweats Eyes: No worsening of vision ENT: No hearing loss Respiratory: No cough, No shortness of breath Cardiovascular: No chest pain, No palpitations Abdomen: + pain (post-operative pain, but improving) Musculoskeletal: No joint pain Genitourinary - Female: No dysuria Integumentary: No itch, No rash Physical Exam Date Time Temp Pulse Resp B/P Pulse Ox O2 Delivery O2 Flow Rate FiO2 12/09/16 08:00 Room Air 12/09/16 07:36 36.4 77 17 127/68 96 Room Air 12/09/16 05:56 36.4 12/09/16 03:26 36.3 83 18 121/70 97 Room Air 12/09/16 00:15 Room Air 12/08/16 23:02 36.6 102 18 118/79 92 Room Air 12/08/16 19:53 35.7 94 16 159/84 92 Room Air 12/08/16 17:50 36.4 64 16 150/70 94 Nasal Cannula 2.0 12/08/16 16:50 36.5 86 16 163/80 96 Nasal Cannula 2.0 12/08/16 16:30 92 Nasal Cannula 2.0 12/08/16 15:50 34.7 68 16 169/110 94 Nasal Cannula 2.0 12/08/16 15:20 34.6 64 16 162/93 94 Nasal Cannula 2.0 12/08/16 15:04 36.3 71 14 146/85 99 Nasal Cannula 2.0 12/08/16 15:02 99 Nasal Cannula 2.0 12/08/16 14:36 36.2 12/08/16 14:35 56 14 137/67 96 Nasal Cannula 2 12/08/16 14:25 36.2 56 14 151/72 96 Nasal Cannula 2 12/08/16 14:15 56 14 166/92 94 Nasal Cannula 2 12/08/16 14:05 72 14 176/83 98 Mask 10 12/08/16 13:57 36.2 71 14 174/83 99 Mask 10 General Appearance: no apparent distress, + obese Head: normocephalic, atraumatic Eyes: normal inspection, sclerae normal ENT: hearing grossly normal Neck: supple, trachea midline Respiratory/Chest: no respiratory distress, no accessory muscle use Cardiovascular: regular rate, rhythm Abdomen/GI: + pertinent finding (obese, surgical bandage and drain in place, mild tenderness to light generalized palpation. Dressing C/D/I) Extremities/Musculoskelatal: normal range of motion Neurologic/Psych: alert, normal mood/affect Skin: normal color, warm/dry, no rash Laboratory Results ABDOMEN AND PELVIS CT WITH IV CONTRAST CT DOSE: 1755.68 mGy.cm HISTORY: Pain. Nausea. epigastric pain and tenderness TECHNIQUE: Multiaxial CT images of the abdomen and pelvis were performed following the use of intravenous contrast. COMPARISON STUDY: 04/15/2013 FINDINGS: Periumbilical hernia containing a small medical of small bowel. This is colonic bowel pattern is nonobstructive. Liver spleen and pancreas are unremarkable. Kidneys negative for hydronephrosis. Partially obstructing. IMPRESSION: Periumbilical hernia demonstrated a small partially incarcerated loop of small bowel with partial obstructive change. Last 24 Hours Test 12/09/16 08:03 White Blood Count 14.52 K/uL Red Blood Count 4.70 M/uL Hemoglobin 13.3 g/dL Hematocrit 41.0 % Mean Corpuscular Volume 87.2 fL Mean Corpuscular Hemoglobin 28.3 pg Mean Corpuscular Hemoglobin Concent 32.4 g/dl Platelet Count 211 K/uL Mean Platelet Volume 10.3 fL Neutrophils (%) (Auto) 82.1 % Lymphocytes (%) (Auto) 9.2 % Monocytes (%) (Auto) 8.3 % Eosinophils (%) (Auto) 0.1 % Basophils (%) (Auto) 0.1 % Neutrophils # (Auto) 11.91 K/uL Lymphocytes # (Auto) 1.34 K/uL Monocytes # (Auto) 1.21 K/uL Eosinophils # (Auto) 0.02 K/uL Basophils # (Auto) 0.01 K/uL RDW Standard Deviation 47.3 fL RDW Coefficient of Variation 14.8 % Immature Granulocyte % (Auto) 0.2 % Immature Granulocyte # (Auto) 0.03 K/uL Sodium Level 140 mmol/L Potassium Level 3.9 mmol/L Chloride Level 105 mmol/L Carbon Dioxide Level 26 mmol/L Anion Gap 9.0 mmol/L Blood Urea Nitrogen 8 mg/dl Creatinine 0.73 mg/dl Est Creatinine Clear Calc Drug Dose 89.0 ml/min Estimated GFR () 98.1 Estimated GFR (Non- 84.6 BUN/Creatinine Ratio 10.5 Random Glucose 95 mg/dl Calcium Level 8.7 mg/dl Magnesium Level 2.1 mg/dl Assessment & Plan Patient with incarcerated umbilical hernia now s/p repair of hernia with surgical mesh. He is currently on IV Primaxin for bowel coverage following surgery. The patient does also have history of past hernia surgery with mesh placement as well. She still has drain in place. Feel that she can D/C Primaxin and transition to PO Flagyl and Cipro, likely for 7 days. We can follow as outpatient if there are problems with abx therapy. Thanks. Case reviewed and agree with above assessment.
[2016-12-09] MEDS ORDERED: NURSING VERBAL MED ORDER ONE ×3 (13:00→14:00)
[2016-12-09] MEDS: CIPROFLOXACIN 500 MG TAB PO SCH ×2 (14:03→20:57)
[2016-12-09] MEDS: METRONIDAZOLE 500 MG TAB PO SCH ×2 (14:03→20:55)
[2016-12-09] MEDS ORDERED: CIPROFLOXACIN 500 MG TAB PO SCH (21:00)
[2016-12-10] VITALS (8 sets, daily range): BP systolic 133–153; BP diastolic 70–84; PULSE 73–105; TEMP 36.4–36.8; O2SAT 92–96
[2016-12-10] MEDS: OXYCODONE/ACETAMINOPHEN 5-325 TAB PO PRN (05:21)
[2016-12-10] MEDS: LEVOTHYROXINE 50 MCG TAB PO SCH (05:24)
[2016-12-10 07:41] LABS: BASO % 0.3 %; BASO ABS # 0.03 K/uL (0-0.2); COMPLETE YES; EOS % 1.9 %; HEMATOCRIT 40.9 % (37-47); IG% 0.3 %; LYMPH % 12.4 %; LYMPH ABS # 1.47 K/uL (1.2-3.4); MEAN CELL VOLUME 87.8 fL (80-100); MEAN CORPUSCULAR HEMOGLOBIN 28.3 pg (25-34); MEAN CORPUSCULAR HGB CONC 32.3 g/dl (32-36); MEAN PLATELET VOLUME 10.5 fL (7.4-10.4); MONO % 11.4 %; NEUT % 73.7 %; PLATELET COUNT 216 K/uL (130-400); RED BLOOD COUNT 4.66 M/uL (4.2-5.4); WHITE BLOOD COUNT 11.89 K/uL (4.8-10.8)
[2016-12-10] MEDS: CHECK CLONIDINE PATCH PLACEMENT SCH ×2 (08:04→17:04)
[2016-12-10 08:17] LABS: BUN/CREATININE RATIO 11.8 (10-20); CREATININE 0.93 mg/dl (0.60-1.20); MAGNESIUM 1.9 mg/dl (1.8-2.4); POTASSIUM 3.7 mmol/L (3.5-5.1)
[2016-12-10 08:51] LABS: CALCIUM 8.6 mg/dl (8.5-10.1)
[2016-12-10] MEDS: METRONIDAZOLE 500 MG TAB PO SCH (09:19)
[2016-12-10] MEDS: CIPROFLOXACIN 500 MG TAB PO SCH ×2 (09:19→21:12)
[2016-12-10] MEDS: PANTOprazole SOD 40 MG TAB PO SCH (09:19)
--- NOTE | 2016-12-10 11:14 | Surgery Progress Note ---
Surgery Progress Note Date of Service Dec 10, 2016. Subjective Post OP Day: 1 + feeling well F/U S/P open repair incarcerated umbilical hernia with mesh, pt is doing fine, good control pain, not passed gas and BM for 3 days, pt denies nausea, no vomiting, JENNIFER minimal Objective Vital Signs: Date Time Temp Pulse Resp B/P Pulse Ox O2 Delivery O2 Flow Rate FiO2 12/10/16 08:50 Room Air 12/10/16 08:20 Room Air 12/10/16 08:15 93 Room Air 12/10/16 07:53 36.8 96 16 138/70 93 Room Air 12/10/16 04:01 102 138/82 12/09/16 23:30 Room Air 12/09/16 23:26 36.9 87 16 143/77 95 Room Air 12/09/16 16:00 92 Room Air 12/09/16 15:20 36.9 92 18 112/72 93 Room Air 12/09/16 12:28 36.9 77 18 132/79 96 Room Air General Appearance: WD/WN Head: normocephalic Neck: supple, no JVD Respiratory/Chest: chest non-tender, lungs clear Cardiovascular: regular rate, rhythm, no edema, no gallop, no JVD Abdomen: normal bowel sounds, non distended, soft, + tenderness Incision(s): clean, dry, intact Extremities: normal range of motion, non-tender, normal inspection Laboratory Results: Results Past 24 Hours Test 12/10/16 07:10 Range/Units White Blood Count 11.89 4.8-10.8 K/uL Red Blood Count 4.66 4.2-5.4 M/uL Hemoglobin 13.2 12.0-16.0 g/dL Hematocrit 40.9 37-47 % Mean Corpuscular Volume 87.8 80-100 fL Mean Corpuscular Hemoglobin 28.3 25-34 pg Mean Corpuscular Hemoglobin Concent 32.3 32-36 g/dl Platelet Count 216 130-400 K/uL Mean Platelet Volume 10.5 7.4-10.4 fL Neutrophils (%) (Auto) 73.7 % Lymphocytes (%) (Auto) 12.4 % Monocytes (%) (Auto) 11.4 % Eosinophils (%) (Auto) 1.9 % Basophils (%) (Auto) 0.3 % Neutrophils # (Auto) 8.77 1.4-6.5 K/uL Lymphocytes # (Auto) 1.47 1.2-3.4 K/uL Monocytes # (Auto) 1.36 0.11-0.59 K/uL Eosinophils # (Auto) 0.23 0-0.5 K/uL Basophils # (Auto) 0.03 0-0.2 K/uL RDW Standard Deviation 48.0 36.4-46.3 fL RDW Coefficient of Variation 15.0 11.5-14.5 % Immature Granulocyte % (Auto) 0.3 % Immature Granulocyte # (Auto) 0.03 0.00-0.02 K/uL Sodium Level 142 136-145 mmol/L Potassium Level 3.7 3.5-5.1 mmol/L Chloride Level 110 98-107 mmol/L Carbon Dioxide Level 25 21-32 mmol/L Anion Gap 7.0 3-11 mmol/L Blood Urea Nitrogen 11 7-18 mg/dl Creatinine 0.93 0.60-1.20 mg/dl Est Creatinine Clear Calc Drug Dose 69.9 ml/min Estimated GFR () 73.2 Estimated GFR (Non- 63.1 BUN/Creatinine Ratio 11.8 10-20 Random Glucose 118 70-99 mg/dl Calcium Level 8.6 8.5-10.1 mg/dl Magnesium Level 1.9 1.8-2.4 mg/dl Assessment & Plan IMP : S/P open repair incarcerated umbilical hernia with mesh, pt wants to go home tomorrow after she passes BM. dulcolax 10 NM, and 5mg po now will F/U regular diet
[2016-12-10] MEDS ORDERED: BISACODYL 10 MG SUPP PR STA (11:41)
[2016-12-10] MEDS ORDERED: BISACODYL 5 MG TABEC PO ONE (11:42)
[2016-12-10] MEDS ORDERED: METOPROLOL TARTRATE 25 MG TAB PO SCH (17:15)
[2016-12-10] MEDS ORDERED: BISACODYL 10 MG SUPP ONE (17:31)
[2016-12-10] MEDS ORDERED: ASPIRIN 81 MG CHEW PO STA (18:45)
--- NOTE | 2016-12-10 18:47 | Hospitalist Progress Note ---
Hospitalist Progress Note Date of Service Dec 10, 2016. Subjective Pt evaluation today including: conversation w/ patient, conversation w/ family patient complained of chest pain with ambulation that lasted a minute and than went away while she continued to walk.. She is also having gi symptoms. Medications Medications (Trade) Dose Ordered Sig/Kaylin Route Start Time Stop Time Status Last Admin Dose Admin Pantoprazole Sodium (Protonix Tab) 40 mg QAM PO 12/10/16 09:00 01/09/17 08:59 12/10/16 09:19 40 MG Levothyroxine Sodium (Synthroid Tab) 50 mcg DAILYBB PO 12/10/16 06:00 01/09/17 05:59 12/10/16 05:24 50 MCG Bisacodyl (Dulcolax Supp) 10 mg NOW STAT RI 12/10/16 11:41 12/10/16 11:42 DC 12/10/16 17:26 10 MG Bisacodyl (Dulcolax Tab) 5 mg NOW ONCE PO 12/10/16 11:42 12/10/16 11:43 DC 12/10/16 12:04 5 MG Metoprolol Tartrate (Lopressor Tab) 25 mg BID PO 12/10/16 17:15 01/09/17 17:14 12/10/16 18:04 25 MG Objective Vital Signs Date Time Temp Pulse Resp B/P Pulse Ox O2 Delivery O2 Flow Rate FiO2 12/10/16 16:20 Room Air 12/10/16 15:56 103 12/10/16 15:19 36.6 105 18 133/79 92 Room Air 12/10/16 11:17 36.4 96 16 142/78 96 Room Air 12/10/16 08:50 Room Air 12/10/16 08:20 Room Air 12/10/16 08:15 93 Room Air 12/10/16 07:53 36.8 96 16 138/70 93 Room Air 12/10/16 04:01 102 138/82 12/09/16 23:30 Room Air 12/09/16 23:26 36.9 87 16 143/77 95 Room Air Physical Exam General Appearance: no apparent distress Eyes: normal inspection ENT: hearing grossly normal Neck: trachea midline Respiratory/Chest: lungs clear Cardiovascular: regular rate, rhythm Abdomen: soft Extremities: normal inspection Neurologic/Psychiatric: alert, normal mood/affect Laboratory Results Last 24 Hours Test 12/10/16 07:10 12/10/16 14:50 White Blood Count 11.89 K/uL Red Blood Count 4.66 M/uL Hemoglobin 13.2 g/dL Hematocrit 40.9 % Mean Corpuscular Volume 87.8 fL Mean Corpuscular Hemoglobin 28.3 pg Mean Corpuscular Hemoglobin Concent 32.3 g/dl Platelet Count 216 K/uL Mean Platelet Volume 10.5 fL Neutrophils (%) (Auto) 73.7 % Lymphocytes (%) (Auto) 12.4 % Monocytes (%) (Auto) 11.4 % Eosinophils (%) (Auto) 1.9 % Basophils (%) (Auto) 0.3 % Neutrophils # (Auto) 8.77 K/uL Lymphocytes # (Auto) 1.47 K/uL Monocytes # (Auto) 1.36 K/uL Eosinophils # (Auto) 0.23 K/uL Basophils # (Auto) 0.03 K/uL RDW Standard Deviation 48.0 fL RDW Coefficient of Variation 15.0 % Immature Granulocyte % (Auto) 0.3 % Immature Granulocyte # (Auto) 0.03 K/uL Sodium Level 142 mmol/L Potassium Level 3.7 mmol/L Chloride Level 110 mmol/L Carbon Dioxide Level 25 mmol/L Anion Gap 7.0 mmol/L Blood Urea Nitrogen 11 mg/dl Creatinine 0.93 mg/dl Est Creatinine Clear Calc Drug Dose 69.9 ml/min Estimated GFR () 73.2 Estimated GFR (Non- 63.1 BUN/Creatinine Ratio 11.8 Random Glucose 118 mg/dl Calcium Level 8.6 mg/dl Magnesium Level 1.9 mg/dl Troponin I 0.044 ng/ml Assessment and Plan (1) Chest pain Assessment & Plan: EKG showed no change. will trend cardiac markers. Will add bblocker and Aspirin (2) Periumbilical hernia (3) Benign hypertension Assessment & Plan: will add back bblocker
[2016-12-10] MEDS ORDERED: NURSING VERBAL MED ORDER ONE (21:30)
[2016-12-11 00:41] VITALS: BP 145/78; PULSE 80
[2016-12-11] MEDS: LEVOTHYROXINE 50 MCG TAB PO SCH (05:52)
[2016-12-11 06:27] LABS: BASO % 0.3 %; BASO ABS # 0.03 K/uL (0-0.2); COMPLETE YES; EOS % 3.9 %; HEMATOCRIT 38.7 % (37-47); IG% 0.3 %; LYMPH ABS # 1.84 K/uL (1.2-3.4); MEAN CELL VOLUME 87.8 fL (80-100); MEAN CORPUSCULAR HEMOGLOBIN 29.5 pg (25-34); MEAN CORPUSCULAR HGB CONC 33.6 g/dl (32-36); MEAN PLATELET VOLUME 10.3 fL (7.4-10.4); MONO % 11.7 %; NEUT % 66.8 %; PLATELET COUNT 209 K/uL (130-400); RED BLOOD COUNT 4.41 M/uL (4.2-5.4); WHITE BLOOD COUNT 10.84 K/uL (4.8-10.8)
[2016-12-11 07:07] LABS: BUN/CREATININE RATIO 14.2 (10-20); CALCIUM 8.6 mg/dl (8.5-10.1); CREATININE 0.81 mg/dl (0.60-1.20); MAGNESIUM 2.2 mg/dl (1.8-2.4); POTASSIUM 3.7 mmol/L (3.5-5.1)
[2016-12-11 07:10] VITALS: BP 131/77; PULSE 69; TEMP 36.8; O2SAT 94
[2016-12-11] MEDS ORDERED: DOCUSATE SODIUM 100 MG CAP PO SCH (09:00)
--- NOTE | 2016-12-11 09:43 | Surgery Progress Note ---
Surgery Progress Note Date of Service Dec 11, 2016. Subjective Post OP Day: 2 + feeling well pt is doing fine, no abdominal pain, she tolerated diet, JENNIFER minimal, Passed BM x2, Objective Vital Signs: Date Time Temp Pulse Resp B/P Pulse Ox O2 Delivery O2 Flow Rate FiO2 12/11/16 07:10 36.8 69 19 131/77 94 Room Air 12/11/16 00:41 80 145/78 12/10/16 23:20 Room Air 12/10/16 23:15 36.8 73 16 153/84 95 Room Air 12/10/16 20:04 94 12/10/16 16:20 Room Air 12/10/16 15:56 103 12/10/16 15:19 36.6 105 18 133/79 92 Room Air 12/10/16 11:17 36.4 96 16 142/78 96 Room Air General Appearance: WD/WN Head: normocephalic Neck: supple, no JVD Respiratory/Chest: chest non-tender, lungs clear Cardiovascular: regular rate, rhythm, no edema, no JVD Abdomen: normal bowel sounds, non tender, non distended, soft Incision(s): clean, dry, intact Extremities: normal range of motion, non-tender, normal inspection Laboratory Results: Results Past 24 Hours Test 12/10/16 14:50 12/10/16 19:20 12/11/16 06:05 Range/Units Troponin I 0.044 0.047 0.032 0-0.045 ng/ml White Blood Count 10.84 4.8-10.8 K/uL Red Blood Count 4.41 4.2-5.4 M/uL Hemoglobin 13.0 12.0-16.0 g/dL Hematocrit 38.7 37-47 % Mean Corpuscular Volume 87.8 80-100 fL Mean Corpuscular Hemoglobin 29.5 25-34 pg Mean Corpuscular Hemoglobin Concent 33.6 32-36 g/dl Platelet Count 209 130-400 K/uL Mean Platelet Volume 10.3 7.4-10.4 fL Neutrophils (%) (Auto) 66.8 % Lymphocytes (%) (Auto) 17.0 % Monocytes (%) (Auto) 11.7 % Eosinophils (%) (Auto) 3.9 % Basophils (%) (Auto) 0.3 % Neutrophils # (Auto) 7.25 1.4-6.5 K/uL Lymphocytes # (Auto) 1.84 1.2-3.4 K/uL Monocytes # (Auto) 1.27 0.11-0.59 K/uL Eosinophils # (Auto) 0.42 0-0.5 K/uL Basophils # (Auto) 0.03 0-0.2 K/uL RDW Standard Deviation 48.1 36.4-46.3 fL RDW Coefficient of Variation 14.9 11.5-14.5 % Immature Granulocyte % (Auto) 0.3 % Immature Granulocyte # (Auto) 0.03 0.00-0.02 K/uL Sodium Level 139 136-145 mmol/L Potassium Level 3.7 3.5-5.1 mmol/L Chloride Level 106 98-107 mmol/L Carbon Dioxide Level 28 21-32 mmol/L Anion Gap 5.0 3-11 mmol/L Blood Urea Nitrogen 12 7-18 mg/dl Creatinine 0.81 0.60-1.20 mg/dl Est Creatinine Clear Calc Drug Dose 80.2 ml/min Estimated GFR () 86.5 Estimated GFR (Non- 74.6 BUN/Creatinine Ratio 14.2 10-20 Random Glucose 100 70-99 mg/dl Calcium Level 8.6 8.5-10.1 mg/dl Magnesium Level 2.2 1.8-2.4 mg/dl Assessment & Plan IMP : S/P open repair incarcerated umbilical hernia with mesh, pt wants to go home tomorrow after she passes BM D/C home today, regular diet IMP : S/P open repair incarcerated umbilical hernia with mesh, pt wants to go home tomorrow after she passes BM. dulcolax 10 DE, and 5mg po now will F/U
[2016-12-11] MEDS: CIPROFLOXACIN 500 MG TAB PO SCH (09:59)
[2016-12-11 11:32] VITALS: BP 131/77; PULSE 69; TEMP 36.8; O2SAT 94
[2016-12-11] MEDS: PANTOprazole SOD 40 MG TAB PO SCH (11:49)
--- NOTE | 2016-12-12 11:21 | ECHOCARDIOGRAM REPORT ---
*NOTICE TO RECEIVING [employer] This information is strictly Confidential and protected under [place] law. [place] law prohibits you from making any further disclosure of this information unless further disclosure is expressly permitted by the written consent of the person to whom it pertains or is authorized by law. A general authorization for the release of medical or other information is not sufficient for this purpose. Hospital accepts no responsibility if the information is made available to any other person, INCLUDING THE PATIENT. Interpretation Summary * Name: LYNN CURTIS Study Date: 12/11/2016 01:53 PM BP: 145/78 mmHg * Patient Location: C.MSN\S\N379\S\2 HR: 66 * : 1950 (M/d/yyyy) Gender: Female Height: 64 in * Age: 66 yrs Ethnicity: [place] Weight: 240 lb * Ordering Physician: Jassi Almeida * Referring Physician: Self, Referred * Performed By: Carlton Johnson RDCS * * Reason For Study: Elevated troponin * BSA: 2.1 m2 * -- Conclusions -- * There is mild asymmetric left ventricular hypertrophy. * Left ventricular systolic function is normal. * Grade I diastolic dysfunction, (abnormal relaxation pattern). * The left atrium is moderately dilated. Procedure Details * A complete two-dimensional transthoracic echocardiogram was performed (2D, M-mode, Doppler and color flow Doppler). * The study was technically difficult. * The study was technically adequate. * No IV access available for Definity Left Ventricle * The left ventricle is normal in size. * There is mild asymmetric left ventricular hypertrophy. * Left ventricular systolic function is normal. * Ejection Fraction = 55-60%. * Grade I diastolic dysfunction, (abnormal relaxation pattern). * The left ventricular wall motion is normal. Right Ventricle * The right ventricle is normal in size and function. Atria * The left atrium is moderately dilated. * Right atrial size is normal. Mitral Valve * The mitral valve anatomy is normal. * Significant mitral regurgitation is absent. Tricuspid Valve * The tricuspid valve is not well visualized, but is grossly normal. * There is trace tricuspid regurgitation. Aortic Valve * The aortic valve is normal in structure and function. * No hemodynamically significant valvular aortic stenosis. * There is no significant aortic regurgitation. Great Vessels * The aortic root is normal size. Pericardium/Pleural * There is no pericardial effusion. MMode 2D Measurements and Calculations IVSd 1.5 cm IVSs 1.9 cm LVIDd 3.8 cm LVIDs 1.9 cm LVPWd 1.5 cm LVPWs 1.8 cm IVS/LVPW 0.98 FS 50.0 % EDV(Teich) 61.2 ml ESV(Teich) 11.0 ml EF(Teich) 82.0 % EDV(cubed) 54.1 ml ESV(cubed) 6.8 ml EF(cubed) 87.5 % % IVS thick 29.8 % % LVPW thick 19.3 % LV mass(C)d 209.5 grams LV mass(C)dI 99.1 grams/m\S\2 LV mass(C)s 138.3 grams LV mass(C)sI 65.5 grams/m\S\2 SV(Teich) 50.2 ml SI(Teich) 23.8 ml/m\S\2 SV(cubed) 47.3 ml SI(cubed) 22.4 ml/m\S\2 EPSS 0.56 cm Ao root diam 3.3 cm Ao root area 8.7 cm\S\2 ACS 1.7 cm LA dimension 4.8 cm asc Aorta Diam 3.5 cm LA/Ao 1.4 LVOT diam 2.1 cm LVOT area 3.4 cm\S\2 LVAd ap4 19.8 cm\S\2 LVLd ap4 7.5 cm EDV(MOD-sp4) 43.0 ml LVAs ap4 9.9 cm\S\2 LVLs ap4 5.7 cm ESV(MOD-sp4) 14.0 ml EF(MOD-sp4) 67.4 % LVAd ap2 18.9 cm\S\2 LVLd ap2 7.3 cm EDV(MOD-sp2) 40.0 ml LVAs ap2 10.3 cm\S\2 LVLs ap2 6.1 cm ESV(MOD-sp2) 15.0 ml EF(MOD-sp2) 62.5 % SV(MOD-sp4) 29.0 ml SI(MOD-sp4) 13.7 ml/m\S\2 SV(MOD-sp2) 25.0 ml SI(MOD-sp2) 11.8 ml/m\S\2 Doppler Measurements and Calculations MV E max tricia 96.0 cm/sec MV A max tricia 100.9 cm/sec MV E/A 0.95 MV dec time 0.20 sec Ao V2 max 164.0 cm/sec Ao max PG 10.8 mmHg Ao max PG (full) 3.8 mmHg RUFINA(V,A) 2.7 cm\S\2 RUFINA(V,D) 2.7 cm\S\2 LV V1 max PG 7.0 mmHg LV V1 max 132.3 cm/sec PA V2 max 88.2 cm/sec PA max PG 3.1 mmHg PI end-d tricia 163.9 cm/sec
--- NOTE | 2016-12-13 13:04 | DISCHARGE SUMMARY ---
PRIMARY DISCHARGE DIAGNOSES: 1. Incarcerated umbilical hernia. 2. Hypertension. PROCEDURE PERFORMED: Open repair of recurrent umbilical hernia with compartment separation and onlay Marlex mesh. [facility]: [facility] 2. Infectious disease. HOSPITAL COURSE: The patient is a 58-year-old female who presented to the Emergency Department with abdominal pain. CT showed a periumbilical hernia containing a loop of obstructed bowel. The hernia was partially reduced in the Emergency Department. She was admitted to the medicine service and surgery consulted. She was taken to the operating room later that morning for hernia repair with mesh. The procedure was well tolerated. She was returned to the regular floor. On postoperative day 1, she was able to tolerate an advancing diet. First of 2 JENNIFER drains was removed. She was given a suppository on postoperative day 2 was moving her bowels by day #3. Her pain was managed with oral analgesics. She was stable for discharge home with the drain. Her overnight drainage was 15 mL. DISCHARGE INSTRUCTIONS: Discharge home. Follow up with Dr. Barnes in 1 week. Continue abdominal binder during the day when up and around. DISCHARGE MEDICATIONS: Cipro 500 mg p.o. b.i.d. x5 until the drain is removed, Percocet 1-2 tablets every 4 hours as needed. Resume home medications, Atenolol 100 mg daily, Vitamin D3 1000 units daily, levothyroxine 50 mcg daily and Prilosec 10 mg daily.
== END 2016-12-11 15:45 | disposition home health service (06) | DRG 355 ==
LOC: ENRESERVTM → ENRESERVDT → C.EDB 00:58 → C.MSN 05:35
PROVIDERS: ADMIT Hospitalist; ATTEND Internal Medicine
PROC: 0WUF0JZ Supplement Abdominal Wall with Synthetic Substitute, Open Approach (ICD-10-PCS; principal; 2016-12-08 14:00)
DX: K42.0 Umbilical hernia with obstruction, without gangrene (principal); I10 Essential (primary) hypertension; E78.00 Pure hypercholesterolemia, unspecified; Z96.653 Presence of artificial knee joint, bilateral

== ENCOUNTER → 2016-12-19 | Outpatient (CLI) | payer OTHER, MEDICARE ==
[~2016-12-19] MED LIST changes: -CALCTAB5 PO; +CHOL1000 PO; -ERGO1CAP35 PO; +OMEP10CA4 PO; -OMEP20TA; +OXYC-57 PO; -PSYL55.43 PO
[2016-12-19 13:05] LABS: ESTIMATED AVERAGE GLUCOSE 128 mg/dl; HA1C FLAG Normal (Normal)
[2016-12-19 18:04] LABS: BLOOD UREA NITROGEN 13 mg/dl (7-18); BUN/CREATININE RATIO 15.1 (10-20); CALCIUM 8.8 mg/dl (8.5-10.1); CARBON DIOXIDE 24 mmol/L (21-32); CHLORIDE 107 mmol/L (98-107); CREATININE 0.86 mg/dl (0.60-1.20); GLUCOSE 98 mg/dl (70-99); SODIUM 140 mmol/L (136-145)
[2016-12-19 18:16] LABS: CHOLESTEROL 171 mg/dl (0-200); CHOLESTEROL/HDL RATIO 4.1; HDL CHOLESTEROL 42 mg/dl; LDL CHOLESTEROL CALCULATED 99 mg/dl; TRIGLYCERIDES 148 mg/dl (0-150); VERY LOW DENSITY LIPOPROT CALC 30 mg/dl
--- NOTE | 2016-12-27 06:57 | CODING QUERY MEDICAL NECESSITY ---
CQSUPPORTING DIAGNOSIS NEEDED A supporting diagnosis is required for the test/procedure performed on this patient in order for us to be reimbursed by the patient's insurance. Please provide a supporting diagnosis for the following test/procedure listed below next to the test name along with your signature. *If there is no additional diagnosis for this patient that would support the following test/procedure please document that below next to the test/procedure. Test(s)/Procedure(s) that require a supporting diagnosis: ANGELIKA 12/19/16 VITAMIN D TEST Provider Signature: Date: Thank you Leelee Torre Health Information Management Once completed, please kindly fax back to [phone] For questions please call [phone]
== END | disposition home or self-care (01) ==
LOC: C.LABPBG 11:02
PROVIDERS: ATTEND Internal Medicine Geriatric Medicine
DX: I10 Essential (primary) hypertension (principal); E03.9 Hypothyroidism, unspecified; R73.9 Hyperglycemia, unspecified; E55.9 Vitamin D deficiency, unspecified

== ENCOUNTER → 2017-04-28 | Outpatient (CLI) | payer OTHER, MEDICARE ==
--- NOTE | 2017-04-28 11:04 | DIAGNOSTIC IMAGING REPORT ---
LEFT KNEE 1 OR 2 VIEWS ROUTINE CLINICAL HISTORY: Left knee pain following recent fall. COMPARISON: Left knee radiographs November 06, 2014. FINDINGS: Alignment of the total left knee arthroplasty is anatomic. There is no periprosthetic fracture. There is a trace left knee joint effusion. Hardware is intact. IMPRESSION: 1. Status post total left knee arthroplasty. Hardware intact with no periprosthetic fracture. 2. Trace left knee joint effusion. Electronically signed by: Florentino Cervantes M.D. 04/28/2017 11:02 AM Dictated Date/Time: 04/28/2017 10:56 AM
== END | disposition home or self-care (01) ==
LOC: C.RADBC 10:32
PROVIDERS: ATTEND Family Medicine
DX: M25.562 Pain in left knee (principal); Z96.652 Presence of left artificial knee joint

== ENCOUNTER → 2017-06-12 | Outpatient (CLI) | payer OTHER, MEDICARE ==
[~2017-06-12] MED LIST changes: -OXYC-57 PO
--- NOTE | 2017-06-12 13:35 | MAMMOGRAPHY REPORT ---
BILATERAL DIGITAL SCREENING MAMMOGRAM WITH CAD: 06/12/2017 CLINICAL HISTORY: Routine screening. TECHNIQUE: Bilateral CC and MLO views of the breasts were obtained. Additional views weren't mild to include all of the breast tissue within the [id number]. Current study was also evaluated with a Computer Aided Detection (CAD) system. COMPARISON: Comparison is made to exams dated: 06/09/2016 mammogram, 06/02/2014 mammogram, 5 mammogram, 05/23/2013 mammogram, 05/11/2012 mammogram, and 05/11/2011 mammogram - [facility]. BREAST COMPOSITION: The tissue of both breasts is almost entirely fatty. FINDINGS: There are stable groupings of benign-appearing round microcalcifications bilaterally. No n ew suspicious mass, architectural distortion or cluster of microcalcifications is seen. IMPRESSION: ACR BI-RADS CATEGORY 2: BENIGN There is no mammographic evidence of malignancy. A 1 year screening mammogram is recommended. The pa tient will receive written notification of the results. Approximately 10% of breast cancers are not detected with mammography. A negative mammographic report should not delay biopsy if a clinically suggestive mass is present. Crys Johns M.D. ay/:06/12/2017 13:19:44 Environmental Scientist: Vicente WEISS)(Curt), [facility] letter sent: Normal 1/2 BI-RADS Code: ACR BI-RADS Category 2: Benign
== END | disposition home or self-care (01) ==
LOC: C.MAMM 09:40
PROVIDERS: ATTEND Internal Medicine Geriatric Medicine
DX: Z12.31 Encounter for screening mammogram for malignant neoplasm of breast (principal)

== ENCOUNTER → 2017-12-06 | Outpatient (CLI) | payer OTHER, MEDICARE ==
--- NOTE | 2017-12-08 17:41 | POLYSOMNOGRAPH REPORT ---
CLINICAL DATA: A 67-year-old female with BMI of 41 referred by her primary care physician, Dr. Mario Borden, for evaluation of probable obstructive sleep apnea. The patient does have obesity, snoring, hypertension, and daytime fatigue. She is high probability for sleep apnea. On the evening of 12/07/2017, a home sleep apnea test was performed using a Chatosity type 3 monitor. RECORDING RESULTS: Total recording time was 10 hours. The patient's estimated sleep time and patient monitoring time was 7 hours. RESPIRATORY DATA: Mild sleep apnea was documented. The ALLY was 14.5. There were 5 obstructive and 1 central apneic episodes. There were 95 hypopneic episodes. The longest respiratory event was 33 seconds. OXIMETRY DATA: No significant hypoxemia was seen. Oxygen sharon was 88%. Mean saturation was 94%. HEART RATE DATA: Heart rates ranged from 47-60 beats per minute. SNORING DATA: Snoring was recorded throughout the night. IMPRESSION: Mild sleep apnea/hypopnea with an ALLY of 14.5. RECOMMENDATIONS: The patient may benefit from use of an oral appliance, use of auto CPAP, a repeat sleep study with CPAP, or sleep medicine consultation. Clinical correlation is needed. KILLIAN
== END | disposition home or self-care (01) ==
LOC: C.NEUR 09:32
PROVIDERS: ATTEND Internal Medicine Geriatric Medicine
DX: G47.19 Other hypersomnia (principal); R40.0 Somnolence; Z68.41 Body mass index [BMI] 40.0-44.9, adult; M19.90 Unspecified osteoarthritis, unspecified site; E78.5 Hyperlipidemia, unspecified; K21.9 Gastro-esophageal reflux disease without esophagitis; R73.9 Hyperglycemia, unspecified; I10 Essential (primary) hypertension; E03.9 Hypothyroidism, unspecified; D12.6 Benign neoplasm of colon, unspecified; R06.83 Snoring; Z88.1 Allergy status to other antibiotic agents; Z88.2 Allergy status to sulfonamides; Z88.8 Allergy status to other drugs, medicaments and biological substances

== ENCOUNTER 2018-04-12 18:13 | Emergency (ER) | payer OTHER, MEDICARE ==
[~2018-04-12] VITALS: Ht 162.6 cm; Wt 111.0 kg
[2018-04-12 18:21] VITALS: TEMP 36.7; Ht 162.6 cm; Wt 111.0 kg
[2018-04-12] MEDS ORDERED: SODIUM CHLORIDE 0.9% 500ML 500 ML IV STA (18:37)
--- NOTE | 2018-04-12 19:02 | DIAGNOSTIC IMAGING REPORT ---
CHEST ONE VIEW PORTABLE CLINICAL HISTORY: Atypical chest pain COMPARISON STUDY: 12/08/2016 FINDINGS: The cardiac and mediastinal contours are normal. There is no evidence of focal pulmonary consolidation. There is no evidence of failure. No pleural effusions are visualized.[ IMPRESSION: No active disease in the chest. Electronically signed by: Naeem Baeza M.D. 04/12/2018 7:01 PM Dictated Date/Time: 04/12/2018 7:01 PM
[2018-04-12 19:11] LABS: BASO % 0.3 %; BASO ABS # 0.03 K/uL (0-0.2); EOS % 1.7 %; IG# 0.03 K/uL (0.00-0.02); LYMPH % 21.4 %; LYMPH ABS # 2.53 K/uL (1.2-3.4); MEAN CELL VOLUME 86.1 fL (80-100); MEAN CORPUSCULAR HEMOGLOBIN 29.4 pg (25-34); MEAN CORPUSCULAR HGB CONC 34.1 g/dl (32-36); MEAN PLATELET VOLUME 10.5 fL (7.4-10.4); MONO % 9.9 %; MONO ABS # 1.17 K/uL (0.11-0.59); NEUT % 66.4 %; NEUT ABS # 7.89 K/uL (1.4-6.5); PLATELET COUNT 230 K/uL (130-400); RED CELL DISTRIBUTION WIDTH CV 14.1 % (11.5-14.5); RED CELL DISTRIBUTION WIDTH SD 44.8 fL (36.4-46.3); WHITE BLOOD COUNT 11.85 K/uL (4.8-10.8)
--- NOTE | 2018-04-12 19:25 | DIAGNOSTIC IMAGING REPORT ---
CT HEAD WITHOUT CONTRAST (CT) CLINICAL HISTORY: Visual difficulties. Seeing spots. COMPARISON STUDY: No previous studies for comparison. TECHNIQUE: Axial CT of the brain is performed from the vertex to the skull base. IV contrast was not administered for this examination. A dose lowering technique was utilized adhering to the principles of ALARA. CT DOSE: 537.48 mGy.cm FINDINGS: No intra or extra-axial mass lesions are visualized. There is no CT evidence of acute cortical infarction. There is no evidence of midline shift. There is no acute hemorrhage. No calvarial fractures are visualized. There are moderate white matter hypodensities likely on a small vessel basis. There is no evidence of pathologic ventricular dilatation. There is no evidence of acute sinusitis. There is a right occipital bone exostosis. IMPRESSION: 1. Moderate white matter disease likely on a small vessel basis 2. No acute intracranial findings Electronically signed by: Naeem Baeza M.D. 04/12/2018 7:24 PM Dictated Date/Time: 04/12/2018 7:19 PM
[2018-04-12 19:33] LABS: BLOOD UREA NITROGEN 12 mg/dl (7-18); CALCIUM 9.3 mg/dl (8.5-10.1); CARBON DIOXIDE 24 mmol/L (21-32); CKMB 1.6 ng/ml (0.5-3.6); CREATININE 0.96 mg/dl (0.60-1.20); GLUCOSE 107 mg/dl (70-99); POTASSIUM 3.5 mmol/L (3.5-5.1); SODIUM 139 mmol/L (136-145)
[2018-04-12] MEDS ORDERED: CHOL1000 PO (20:30)
[2018-04-12 22:19] VITALS: BP 176/83; PULSE 59; O2SAT 98
--- NOTE | 2018-04-13 00:52 | EMERGENCY ROOM VISIT NOTE ---
History Report prepared by Mook: Audi Azevedo Under the Supervision of: Dr. Adam Saenz D.O. First contact with patient: 18:25 Chief Complaint: REFERRED BY DOCTOR Stated Complaint: SEEING ORBS;DOC REFERRED History of Present Illness The patient is a 68 year old female who presents to the Emergency Room with complaints of chest pain and a headache that started today about 2.5 hours ago. She reports that she has been worked up ever since being told to come to the emergency room, which she explains is probably the cause of her pain since she does have a history of anxiety. The patient reports that 5 days ago she was experiencing head pain that she described as achy and lasted a few hours. She states that from this she started seeing "[place]" in both eyes so she went to the eye doctor and was told she has macula degeneration. No exacerbating or remitting factors. Pt denies weakness or numbness in extremities, change in vision, fevers, shortness of breath, nausea, vomiting, diarrhea, pain with urination, and melena. Patient denies diabetes, hyperlipidemia, CAD, history of sudden at a young age, and smoking. Patient was previously evaluated for the same complaint by ophthalmology. She notes that her exam is completely benign without retinal detachments. Source of History: patient Onset: 2.5 hours ago Position: head Quality: ache Associated Symptoms: + neck pain, + chest pain, No fevers, No SOB, No nausea , No vomiting, No melena, No diarrhea, No urinary symptoms Review of Systems See HPI for pertinent positives & negatives. A total of 10 systems reviewed and were otherwise negative. Past Medical & Surgical Medical Problems: (1) Benign hypertension (2) Chest pain (3) Hernia of small intestine (4) Hypercholesteremia (5) Hypertension (6) Replacement of total knee joint (7) Urinary symptom or sign (8) Ventral hernia without obstruction or gangrene Family History Heart disease Hypertension Social History Smoking Status: Never Smoker Drug Use: none Marital Status: Housing Status: lives with family Occupation Status: retired Current/Historical Medications Scheduled Atenolol (Tenormin), 100 MG PO DAILY Cholecalciferol (Vitamin D3), 1,000 UNITS PO DAILY Cholecalciferol (Vitamin D3), 1 TAB PO DAILY Levothyroxine Sodium (Levothyroxine Sodium), 50 MCG PO DAILY Omeprazole (Prilosec), 10 MG PO QAM Allergies Coded Allergies: Ramipril (Verified Allergy, Severe, ANGIOEDEMA, 04/12/18) Amlodipine (Verified Allergy, Unknown, unknown, 04/12/18) Chlorthalidone (Verified Allergy, Unknown, unknown, 04/12/18) Doxycycline (Verified Allergy, Unknown, unknown, 04/12/18) Losartan (Unverified Allergy, Unknown, NON TOLERANT, 04/12/18) Penicillins (Verified Allergy, Unknown, UNKNOWN, 04/12/18) Spironolactone (Verified Allergy, Unknown, unknown, 04/12/18) Sulfa Antibiotics (Verified Allergy, Unknown, "SULFA": HIVES, 04/12/18) Valsartan (Verified Allergy, Unknown, unknown, 04/12/18) Lisinopril (Verified Adverse Reaction, Unknown, HEADACHE, 04/12/18) Physical Exam Vital Signs Date Time Temp Pulse Resp B/P (MAP) Pulse Ox O2 Delivery O2 Flow Rate FiO2 04/12/18 22:19 59 18 176/83 98 04/12/18 21:45 57 18 156/88 97 Room Air 04/12/18 19:39 60 18 139/78 96 Room Air 04/12/18 18:21 36.7 65 16 199/94 98 Room Air Physical Exam GENERAL: Sitting up in bed, alert, well appearing, well nourished, no distress, non-toxic EYE EXAM: normal conjunctiva. PERRL and EOM's intact. OROPHARYNX: no exudate, no erythema, lips, buccal mucosa, and tongue normal and mucous membranes are moist NECK: supple, no nuchal rigidity, no adenopathy, non-tender LUNGS: Clear to auscultation. Normal chest wall mechanics HEART: no murmurs, S1 normal and S2 normal ABDOMEN: abdomen soft, non-tender, normo-active bowel sounds, no masses, no rebound or guarding. BACK: Back is symmetrical on inspection and there is no deformity, no midline tenderness, no CVA tenderness. SKIN: no rashes and no bruising UPPER EXTREMITIES: upper extremities are grossly normal. LOWER EXTREMITIES: No pitting edema. Calves equal bilaterally NEURO EXAM: Normal sensorium, cranial nerves II-XII intact, normal speech, no weakness of arms, no weakness of legs. No drift. Finger to nose intact. Gross sensation intact. Medical Decision & Procedures ER Provider Diagnostic Interpretation: Radiology results as stated below per my review and the radiologist's interpretation: CT HEAD WITHOUT CONTRAST (CT) CLINICAL HISTORY: Visual difficulties. Seeing spots. COMPARISON STUDY: No previous studies for comparison. TECHNIQUE: Axial CT of the brain is performed from the vertex to the skull base. IV contrast was not administered for this examination. A dose lowering technique was utilized adhering to the principles of ALARA. CT DOSE: 537.48 mGy.cm FINDINGS: No intra or extra-axial mass lesions are visualized. There is no CT evidence of acute cortical infarction. There is no evidence of midline shift. There is no acute hemorrhage. No calvarial fractures are visualized. There are moderate white matter hypodensities likely on a small vessel basis. There is no evidence of pathologic ventricular dilatation. There is no evidence of acute sinusitis. There is a right occipital bone exostosis. IMPRESSION: 1. Moderate white matter disease likely on a small vessel basis 2. No acute intracranial findings Electronically signed by: Naeem Baeza M.D. 04/12/2018 7:24 PM Dictated Date/Time: 04/12/2018 7:19 PM CHEST ONE VIEW PORTABLE CLINICAL HISTORY: Atypical chest pain COMPARISON STUDY: 12/08/2016 FINDINGS: The cardiac and mediastinal contours are normal. There is no evidence of focal pulmonary consolidation. There is no evidence of failure. No pleural effusions are visualized.[ IMPRESSION: No active disease in the chest. Electronically signed by: Naeem Baeza M.D. 04/12/2018 7:01 PM Dictated Date/Time: 04/12/2018 7:01 PM Laboratory Results 04/12/18 18:55 Red Blood Count 5.11, Mean Corpuscular Volume 86.1, Mean Corpuscular Hemoglobin 29.4, Mean Corpuscular Hemoglobin Concent 34.1, Mean Platelet Volume 10.5, Neutrophils (%) (Auto) 66.4, Lymphocytes (%) (Auto) 21.4, Monocytes (%) (Auto) 9.9, Eosinophils (%) (Auto) 1.7, Basophils (%) (Auto) 0.3, Neutrophils # (Auto) 7.89, Lymphocytes # (Auto) 2.53, Monocytes # (Auto) 1.17, Eosinophils # (Auto) 0.20, Basophils # (Auto) 0.03 04/12/18 18:55 Test 04/12/18 18:55 04/12/18 21:16 White Blood Count 11.85 K/uL (4.8-10.8) Red Blood Count 5.11 M/uL (4.2-5.4) Hemoglobin 15.0 g/dL (12.0-16.0) Hematocrit 44.0 % (37-47) Mean Corpuscular Volume 86.1 fL (80-100) Mean Corpuscular Hemoglobin 29.4 pg (25-34) Mean Corpuscular Hemoglobin Concent 34.1 g/dl (32-36) Platelet Count 230 K/uL (130-400) Mean Platelet Volume 10.5 fL (7.4-10.4) Neutrophils (%) (Auto) 66.4 % Lymphocytes (%) (Auto) 21.4 % Monocytes (%) (Auto) 9.9 % Eosinophils (%) (Auto) 1.7 % Basophils (%) (Auto) 0.3 % Neutrophils # (Auto) 7.89 K/uL (1.4-6.5) Lymphocytes # (Auto) 2.53 K/uL (1.2-3.4) Monocytes # (Auto) 1.17 K/uL (0.11-0.59) Eosinophils # (Auto) 0.20 K/uL (0-0.5) Basophils # (Auto) 0.03 K/uL (0-0.2) RDW Standard Deviation 44.8 fL (36.4-46.3) RDW Coefficient of Variation 14.1 % (11.5-14.5) Immature Granulocyte % (Auto) 0.3 % Immature Granulocyte # (Auto) 0.03 K/uL (0.00-0.02) Anion Gap 9.0 mmol/L (3-11) Est Creatinine Clear Calc Drug Dose 66.5 ml/min Estimated GFR () 69.4 Estimated GFR (Non- 59.9 BUN/Creatinine Ratio 12.5 (10-20) Calcium Level 9.3 mg/dl (8.5-10.1) Total Creatine Kinase 102 U/L (26-192) Creatine Kinase MB 1.6 ng/ml (0.5-3.6) Creatine Kinase MB Ratio 1.6 (0-3.0) Troponin I < 0.015 ng/ml (0-0.045) Laboratory results per my review. Medications Administered Medications (Trade) Dose Ordered Sig/Kaylin Route Start Time Stop Time Status Last Admin Dose Admin Sodium Chloride 500 ml @ 999 mls/hr Q31M STAT IV 04/12/18 18:37 04/12/18 19:07 DC 04/12/18 18:37 999 MLS/HR ECG Per My Interpretation Indication: chest pain Rate (beats per minute): 59 Rhythm: sinus rhythm Findings: no ectopy, other (Normal axis, no pvc) ED Course ED COURSE: Vital signs were reviewed and showed hypertension The patients medical record was reviewed The above diagnostic studies were performed and reviewed. ED treatments and interventions as stated above. 182: The patient was evaluated in room A11A. A complete history and physical examination was performed. 183: Sodium Chloride 500 ml @ 999 mls/hr IV 2019: Upon reevaluation, the patient is resting in bed. I discussed my findings with the patient and she understands and agrees with the treatment plan. Based on the patients age, coexisting illnesses, exam and lab findings the decision to treat as an outpatient was made. The patient remained stable while under my care. The patient appeared well at the time of discharge. Medical Decision Differential Diagnosis includes but is not limited to ischemic Stroke, hemorrhagic stroke, bells palsy, mass, neoplasm, migraine headache, seizure, subarachnoid hemorrhage, TIA, and transient global amnesia. Patient is a 68-year-old female who presents the ER for seeing floaters in her bilateral eyes. She has no weakness or numbness. No other complaints. She does note that she was seen and evaluated by ophthalmology and had a unremarkable workup for the same complaint which is been present for the past several days. Her PCP told her to come in here to be evaluated. She is extremely anxious. She can mild twinge in her left chest. She notes that this is typical when she becomes anxious. She had no trouble pain, no shortness of breath or arm pain. She notes that the pain has completely resolved upon presentation after hearing that she did not have a stroke. Troponins were negative 2. EKG was unremarkable. CBC along with BMP was unremarkable as well. CT head was negative. Did not perform a full eye exam as his symptoms have been present and unchanged and she is already been evaluated by ophthalmology.. Exam is not consistent with a CVA. I updated patient at bedside. She is discharged follow-up with PCP as an outpatient. I did offer observation for the chest pain but she declined. Discussed with Pt concerning signs and symptoms to watch out for. Pt was instructed to follow up with their PCP and discussed with the patient their option to return to the ED at anytime for persistent or worsening symptoms. The appropriate anticipatory guidance and out-patient management, including indications for return to the emergency department, were explained at length to the patient and understood. Medication Reconcilliation Current Medication List: was personally reviewed by me Blood Pressure Screening Patient's blood pressure: Elevated blood pressure Blood pressure disposition: Elevated BP felt to be situational Impression Primary Impression: Floaters Additional Impressions: Hypertension Chest pain Scribe Attestation The scribe's documentation has been prepared under my direction and personally reviewed by me in its entirety. I confirm that the note above accurately reflects all work, treatment, procedures, and medical decision making performed by me. Departure Information Dispostion Home / Self-Care Referrals Mario Borden M.D. (PCP) Forms HOME CARE DOCUMENTATION FORM, IMPORTANT VISIT INFORMATION, WORK / SCHOOL INSTRUCTIONS Patient Instructions [facility] Additional Instructions Please follow up with your primary care doctor with in the next 24 hours. Any worsening of your symptoms, please return to the ED immediately. This includes any fevers greater than 100.4, worsening pain, chest pain, shortness breath, persistent nausea, vomiting, unable to eat or drink, or any other concerning signs or symptoms from your standpoint. Please make sure that you follow-up with your eye doctor within the next 24-48 hours. Any weakness or numbness in her arms legs, confusion, or any other concerning signs or symptoms please return to ER. Problem Qualifiers Primary Impression: Floaters Laterality: bilateral Qualified Codes: H43.393 - Other vitreous opacities, bilateral Additional Impressions: Hypertension Hypertension type: unspecified Qualified Codes: I10 - Essential (primary) hypertension Chest pain Chest pain type: unspecified Qualified Codes: R07.9 - Chest pain, unspecified
== END 2018-04-12 22:21 | disposition home or self-care (01) ==
LOC: C.EDB 18:16 → C.EDA 22:21
DX: H43.393 Other vitreous opacities, bilateral (principal); I10 Essential (primary) hypertension; R07.9 Chest pain, unspecified; E78.00 Pure hypercholesterolemia, unspecified; Z96.659 Presence of unspecified artificial knee joint; Z88.8 Allergy status to other drugs, medicaments and biological substances; Z88.0 Allergy status to penicillin; Z88.2 Allergy status to sulfonamides

== ENCOUNTER → 2018-04-13 | Outpatient (CLI) | payer OTHER, MEDICARE ==
[2018-04-13 14:24] LABS: HEMOGLOBIN A1C 6.1 % (4.5-5.6)
[2018-04-13 14:49] LABS: ALKALINE PHOSPHATASE 108 U/L (45-117); ALT/SGPT 19 U/L (12-78); AST/SGOT 19 U/L (15-37); BLOOD UREA NITROGEN 11 mg/dl (7-18); CARBON DIOXIDE 22 mmol/L (21-32); CHOLESTEROL 211 mg/dl (0-200); CREATININE 0.94 mg/dl (0.60-1.20); GLUCOSE 132 mg/dl (70-99); LDL CHOLESTEROL CALCULATED 140 mg/dl; POTASSIUM 3.8 mmol/L (3.5-5.1); SODIUM 137 mmol/L (136-145)
== END | disposition home or self-care (01) ==
LOC: C.LABPBG 09:26
PROVIDERS: ATTEND Internal Medicine Geriatric Medicine
DX: H53.9 Unspecified visual disturbance (principal); I10 Essential (primary) hypertension; E78.5 Hyperlipidemia, unspecified; E03.9 Hypothyroidism, unspecified; R73.9 Hyperglycemia, unspecified

== ENCOUNTER 2020-12-28 06:38 | Observation (INO) ==
--- NOTE | 2020-12-01 15:25 | PAT Medication Instructions ---
Medication Instructions Date of Service December 01, 2020 Home Medications Medication Instructions Recorded clotrimazole-betamethasone 1 1 appln TOPICAL BID PRN #45 gm 11/25/19 %-0.05 % topical cream atenolol 100 mg tablet 100 mg PO QAM #90 tab 06/01/20 atorvastatin 10 mg tablet 10 mg PO QAM #90 tab 06/01/20 levothyroxine 50 mcg tablet 50 mcg PO QAM #90 tab 06/01/20 omeprazole 20 mg capsule,delayed 20 mg PO QAM #90 cap 06/01/20 release rolling walker with seat #1 ea 06/01/20 vit C 250 mg-vit E 90 mg-zinc 40 mg-copper 1 [id number] capsule 1 tab PO BID clotrimazole-betamethasone 1 %-0.05 % topical cream 1 appln TOPICAL BID PRN atenolol 100 mg tablet 100 mg PO QAM atorvastatin 10 mg tablet 10 mg PO QAM levothyroxine 50 mcg tablet 50 mcg PO QAM omeprazole 20 mg capsule,delayed release 20 mg PO QAM cholecalciferol (vitamin D3) [Vitamin D3] 50 mcg PO QAM STOP taking 24 hours before surgery clotrimazole-betamethasone 1 %-0.05 % topical cream 1 appln TOPICAL BID PRN DO NOT take the morning of surgery vit C 250 mg-vit E 90 mg-zinc 40 mg-copper 1 pv-xxfinm-posain capsule 1 tab PO BID cholecalciferol (vitamin D3) [Vitamin D3] 50 mcg PO QAM Take morning of surgery With a small sip of water, OTHERWISE NOTHING TO EAT OR DRINK AFTER MIDNIGHT: atenolol 100 mg tablet 100 mg PO QAM atorvastatin 10 mg tablet 10 mg PO QAM levothyroxine 50 mcg tablet 50 mcg PO QAM omeprazole 20 mg capsule,delayed release 20 mg PO QAM Other Notes If you have any questions please call us at [phone] or [phone] or [phone] or [phone]
--- NOTE | 2020-12-02 13:18 | Anesthesiology Consultation ---
Date of Service December 02, 2020 Assessment & Plan (1) Encounter for pre-operative examination: Chart Review Chart Review: Acceptable Risk for Surgery (pending preop Covid testing results ) and Patient seen in Pre Admission Testing -Pt with FH of blood clots with children and - feels genetic abnormality more with 's family but patient did make surgeon aware and per patient- will be put on Lovenox injections post op Per PAT appt on 12/02/20, pt resides in [facility]. Travels to [facility] for medical appts. Wears mask, uses good hand hygiene and socially distances. No known Covid positive contacts or Covid related symptoms. No known Covid infections in the past 90 days. Preop Covid testing scheduled 12/20/20 at [facility] will await results. Educated on importance of self quarantining, social di stancing and wearing mask in public both for the patient and household contacts. Seen by PCP 11/30/20= seen for follow up and preop exam. EKG done in office- no acute changes. "She will have lab work upon exit, pending normal/stable labs, she is at acceptable risk to proceed with surgery" (Labs showed no acute issues) Teaching & Discussion Pre-Anesthesia Teaching/Discussion Notes: Instructed NPO after midnight before surgery,except medications with 15 cc of water. Medication instructions provided according to the [facility] guidelines. History Surgery Operation Date: 12/28/20 07:00 Proposed Procedures p Right Total Hip Arthroplasty Posterior - Aldair Huber DO Height/Weight Height: 5 ft 4 in Weight: 108.5 kg Allergies Allergy/AdvReac Type Severity Reaction Status Date / Time ramipril Allergy Severe ANGIOEDEMA Verified 11/30/20 08:17 amlodipine Allergy Unknown Unknown Verified 11/30/20 08:17 chlorthalidone Allergy Unknown unknown Verified 11/30/20 08:17 doxycycline Allergy Unknown unknown Verified 11/30/20 08:17 hydrochlorothiazide Allergy Unknown Unknown Verified 11/30/20 08:17 [From Diovan HCT] indapamide Allergy Unknown Unknown Verified 11/30/20 08:17 losartan Allergy Unknown NON Verified 11/30/20 08:17 TOLERANT Penicillins Allergy Unknown UNKNOWN Verified 11/30/20 08:17 spironolactone Allergy Unknown unknown Verified 11/30/20 08:17 Sulfa (Sulfonamide Allergy Unknown "SULFA": Verified 11/30/20 08:17 Antibiotics) HIVES valsartan Allergy Unknown unknown Verified 11/30/20 08:17 cephalexin AdvReac Severe Diarrhea Verified 11/30/20 08:17 lisinopril AdvReac Unknown HEADACHE Verified 11/30/20 08:17 Medications Home Medications Medication Instructions Recorded Confirmed Last Taken vit C 250 mg-vit E 90 mg-zinc 40 1 tab PO BID 03/04/19 11/30/20 10/06/19 mg-copper 1 om-viyebx-npzzag capsule clotrimazole-betamethasone 1 1 appln TOPICAL BID PRN #45 gm 11/25/19 11/30/20 Unknown %-0.05 % topical cream atenolol 100 mg tablet 100 mg PO QAM #90 tab 06/01/20 11/30/20 Unknown atorvastatin 10 mg tablet 10 mg PO QAM #90 tab 06/01/20 11/30/20 Unknown levothyroxine 50 mcg tablet 50 mcg PO QAM #90 tab 06/01/20 11/30/20 Unknown omeprazole 20 mg capsule,delayed 20 mg PO QAM #90 cap 06/01/20 11/30/20 Unknown release rolling walker with seat #1 ea 06/01/20 11/30/20 Unknown cholecalciferol (vitamin D3) 50 mcg PO QAM 11/17/20 11/30/20 Unknown [Vitamin D3] Past Medical History Medical History (Updated 12/02/20 @ 15:27 by Martina Brunson PA-C) AMD (age related macular degeneration) INJECTION LEFT EYE Q 6-7 WEEKS STABLE Anxiety Dyslipidemia Gastroesophageal reflux disease WELL CONTROLLED AND STABLE WITH MED [place] (hard of hearing) NO HEARING AIDS Hypertension Hypothyroidism Mild sleep apnea TRIED CPAP AND UNABLE TO TOLERATE Osteopenia Prediabetes DIET CONTROLLED Small vessel disease, cerebrovascular Noted on 2018 MRI- on statin per PCP records Temporomandibular joint disorder HX-ONE SIDE-NO LOCKING Exercise / Class Metabolic Activity III < 4 Walking/Shop/Light housework (NO CHEST PAIN OR SOB WITH SHORT DISTANCE FLAT SURFACE AMBULATION - USES CANE OR WALKER ) Past Family History Family History Mother Coronary heart disease Heart disease Father Emphysema of lung Heart disease Unknown Hypertension No family history of bleeding disorder Aunt Breast cancer Son Pulmonary embolism Daughter Pulmonary embolism Denies family history of Ovarian cancer Prostate cancer Diabetes Myocardial infarction Lung cancer Colorectal cancer Stroke Past Surgical History Surgical History H/O umbilical hernia repair (11/2016) open repair recurrent umbilical hernia w/ compartment separation onlay Marlex Mesh, Dr Barnes History of esophagogastroduodenoscopy (EGD) History of left knee replacement History of temporal artery biopsy (05/2018) b/l negative Hx of colonoscopy MULTIPLE S/P hernia repair (03/2013) incarcerated umbilical hernia repair w/ strangulated omentum, Dr. Jaimes Past Anesthesia History No Hx of Anesthesia Complications and No Family Hx of Anesthesia Complications History of PONV No Hx of PONV and No Hx of Motion Sickness Social History Smoking Status: Never smoker Do You Dip or Chew Tobacco: No Hx Alcohol Use: No Hx Substance Use: No substance use type: does not use Review of Systems Patient denies chest pain, shortness of breath, dyspnea on exertion, cough, wheezing, palpitations. No hx of seizures, stroke, [place]. No hx of blood clots or blood transfusions Physical Exam Vital Signs VITALS BP 146/77 P 66 TEMP 98.4 SP02 97% RESP 16 Constitutional no acute distress ENMT Mouth: no TMJ clicking Thyromental Distance: < 3.5 Finger Breadths (3.0) Mallampati Class: I (smaller airway ) Full denture on top Missing molars and side teeth on the bottom Neck + short neck, + thick neck and + limited neck extension (moderate ) Respiratory normal respiratory effort; no respiratory distress Auscultation: lungs clear to auscultation bilaterally; no wheezes Cardiovascular Rate/Rhythm: regular rate and regular rhythm Heart Sounds: no murmur Vessels: no carotid bruit Musculoskeletal Spine: no pain with cervical ROM Extremities: extremities normal to inspection Psychiatric Orientation: alert Lab Results Anesthesia Preop Results Results Anesthesia Widget: WBC 9.96 K/uL (4.8-10.8) 11/30/20 Hgb 15.0 g/dL (12.0-16.0) 11/30/20 Hct 44.1 % (37-47) 11/30/20 Plt 280 K/uL (130-400) 11/30/20 Na 139 mmol/L (136-145) 11/30/20 K 4.0 mmol/L (3.5-5.1) 11/30/20 Cl 107 mmol/L (98-107) 11/30/20 CO2 25 mmol/L (21-32) 11/30/20 BUN 14 mg/dl (7-18) 11/30/20 Creat 0.86 mg/dl (0.6-1.2) 11/30/20 Glucose Level 98 mg/dl (70-99) 11/30/20 TSH 3.960 uIu/ml (0.300-4.500) 11/30/20 HA1c 6.0 % (4.5-5.6) H 11/30/20 Testing Laboratory Results PT 9.8 Seconds (9.0-12.0) 12/02/20 13:43 INR 1.0 (0.9-1.1) 12/02/20 13:43 APTT 26.0 Seconds (21.0-31.0) 12/02/20 13:43 Urine Color Yellow 12/02/20 13:43 Urine Appearance Clear (Clear) 12/02/20 13:43 Urine pH 6.5 (4.5-7.5) 12/02/20 13:43 Ur Specific [place] 1.021 (1.000-1.030) 12/02/20 13:43 Urine Protein Negative (Negative) 12/02/20 13:43 Urine Glucose (UA) Negative (Negative) 12/02/20 13:43 Urine Ketones Negative (Negative) 12/02/20 13:43 Urine Nitrite Negative (Negative) 12/02/20 13:43 Ur Leukocyte Esterase Negative (Negative) 12/02/20 13:43 Blood Type O Positive 12/02/20 13:43 Antibody Screen NEGATIVE 12/02/20 13:43 Electrocardiogram Date: 12/02/20 Findings: + NSR @ (61bpm) Nonspecific T wave abnormality. When compared to EKG from Apr 12, 2018- no significant change per cardio. Chest X-Ray Date: 12/02/20 Findings: + NAD Lungs are mildly hyperinflated with diaphragmatic flattening. Echocardiogram Date: 12/12/16 EF: 55-60% LV Function: normal RWMA: + none Other Findings: + diastolic dysfunction (Grade I ) Valvular Disease: + no significant valvular disease Mild asymmetric LVH. Left atrium is moderately dilated. Other Testing Holter monitor 06/12/18= The rhythm was sinus throughout with a minimum heart rate of 47, a max of 126 and an average of 77 bpm. There was a normal diurnal heart rate variation. There were no premature ventricular beats. There were a total of 51 supraventricular beats, 32 of these isolated, 2 couplets and 2 runs of PAT. The longest was at 6:15 AM and lasted 11 beats at 123 bpm. There were symptoms of a strong heartbeat however it was not associated with an arrhythmia. Carotid doppler 06/12/18= Atherosclerosis without hemodynamically significant stenosis in the carotid arteries. Systemic hypertension.
--- NOTE | 2020-12-02 14:28 | XRay Report ---
XR chest Pre-admission PA/Lat HISTORY: 70 years-old Female pat chronic degenerative joint disease COMPARISON: Chest radiographs 06/06/2018 TECHNIQUE: PA and lateral views of the chest FINDINGS: Cardiac mediastinal and hilar silhouettes are within normal limits. No pneumothorax, pleural effusion , airspace consolidation or overt pulmonary edema. Lungs are mildly hyperinflated with diaphragmatic flattening. Degenerative changes of the shoulders and spine. IMPRESSION: No acute process. ACT 112: Negative or not required by law. The above report was generated using voice recognition software. It may contain grammatical, syntax o r spelling errors. Electronically signed by: Jose Olivas M.D. 12/02/2020 2:26 PM
[2020-12-02 15:04] LABS: Prothrombin Time 9.8 Seconds (9.0-12.0)
[2020-12-02 15:15] LABS: Appearance Urine Clear (Clear); Bilirubin Urine Negative (Negative); Blood Urine Negative (Negative); Color Urine Yellow; Glucose Urine UA Negative (Negative); Ketones Urine Negative (Negative); Leukocyte Esterase Urine Negative (Negative); Nitrite Urine Negative (Negative); Protein Urine Negative (Negative); Specific Gravity Urine 1.021 (1.000-1.030); Urobilinogen Urine Negative (Negative); pH Urine 6.5 (4.5-7.5)
--- NOTE | 2020-12-03 22:09 | Electrocardiogram Report ---
Test Reason : Blood Pressure : / mmHG Vent. Rate : 061 BPM Atrial Rate : 061 BPM P-R Int : 174 ms QRS Dur : 086 ms QT Int : 454 ms P-R-T Axes : 074 046 103 degrees QTc Int : 457 ms Normal sinus rhythm Nonspecific T wave abnormality Abnormal ECG When compared with ECG of 12-APR-2018 18:49, No significant change was found Confirmed by Billy Ayala ([id number]) on 12/03/2020 10:09:17 PM Referred By: Aldair Huber Confirmed By:Billy Ayala
--- NOTE | 2020-12-25 21:29 | History & Physical Report ---
Date of Service December 28, 2020 Assessment & Plan (1) Degenerative joint disease of right hip: I have indicated the patient for right total hip replacement. The risks, benefits and complications of surgery were explained to the patient which include but not limited to infection, acute blood loss, DVT/PE, injury to nerves, vessels, bone, soft tissue, arthrofibrosis, chronic pain, failure of the prosthesis, hip dislocation, leg length discrepancy, need for additional surgery, cardiac and pulmonary events and . The patient wished to proceed with surgery and informed consent was obtained at this time. We will plan for Lovenox post-operatively for DVT prophylaxis. Upon discharge the patient will be discharged home with home health services. Appropriate clearances by PCP were obtained. History of Present Illness Chief Complaint: Right hip pain/DJD Primary Care Provider: Yumiko Raman DO The patient is a 70 year old female who presents with complaints of severe right hip pain and DJD. The patient has failed outpatient conservative treatments to this point which included NSAIDs, activity modification, home exercise/walking program. The patient's pain and limited function have progressed to the point where they severely hinder their activities of daily living and they no longer tolerate exercise programs. They are requesting to proceed with total hip replacement surgery. Allergies Allergy/AdvReac Type Severity Reaction Status Date / Time ramipril Allergy Severe ANGIOEDEMA Verified 11/30/20 08:17 amlodipine Allergy Unknown Unknown Verified 11/30/20 08:17 chlorthalidone Allergy Unknown unknown Verified 11/30/20 08:17 doxycycline Allergy Unknown unknown Verified 11/30/20 08:17 hydrochlorothiazide Allergy Unknown Unknown Verified 11/30/20 08:17 [From Diovan HCT] indapamide Allergy Unknown Unknown Verified 11/30/20 08:17 losartan Allergy Unknown NON Verified 11/30/20 08:17 TOLERANT Penicillins Allergy Unknown UNKNOWN Verified 11/30/20 08:17 spironolactone Allergy Unknown unknown Verified 11/30/20 08:17 Sulfa (Sulfonamide Allergy Unknown "SULFA": Verified 11/30/20 08:17 Antibiotics) HIVES valsartan Allergy Unknown unknown Verified 11/30/20 08:17 cephalexin AdvReac Severe Diarrhea Verified 11/30/20 08:17 lisinopril AdvReac Unknown HEADACHE Verified 11/30/20 08:17 Home Medications Medication Instructions Recorded Confirmed Type vit C 250 mg-vit E 90 mg-zinc 40 1 tab PO BID 03/04/19 12/28/20 History mg-copper 1 ol-vrhvow-lbmhez capsule atenolol 100 mg tablet 100 mg PO QAM #90 tab 06/01/20 12/28/20 Rx atorvastatin 10 mg tablet 10 mg PO QAM #90 tab 06/01/20 12/28/20 Rx levothyroxine 50 mcg tablet 50 mcg PO QAM #90 tab 06/01/20 12/28/20 Rx rolling walker with seat #1 ea 06/01/20 11/30/20 Rx cholecalciferol (vitamin D3) 50 mcg PO QAM 11/17/20 12/28/20 History [Vitamin D3] omeprazole 20 mg capsule,delayed 20 mg PO QAM #90 cap 12/07/20 12/28/20 Rx release clotrimazole-betamethasone 1 1 applic TOPICAL BID PRN #45 gm 12/23/20 12/28/20 Rx %-0.05 % topical cream Past Med/Surg History Medical History AMD (age related macular degeneration) INJECTION LEFT EYE Q 6-7 WEEKS STABLE Anxiety Dyslipidemia Gastroesophageal reflux disease WELL CONTROLLED AND STABLE WITH MED [place] (hard of hearing) NO HEARING AIDS Hypertension Hypothyroidism Mild sleep apnea TRIED CPAP AND UNABLE TO TOLERATE Osteopenia Prediabetes DIET CONTROLLED Small vessel disease, cerebrovascular Noted on 2017 MRI- on statin per PCP records Temporomandibular joint disorder HX-ONE SIDE-NO LOCKING Surgical History H/O umbilical hernia repair (11/2016) open repair recurrent umbilical hernia w/ compartment separation onlay Marlex Mesh, Dr Barnes History of esophagogastroduodenoscopy (EGD) History of left knee replacement History of temporal artery biopsy (05/2018) b/l negative Hx of colonoscopy MULTIPLE S/P hernia repair (03/2013) incarcerated umbilical hernia repair w/ strangulated omentum, Dr. Jaimes Family History Mother Coronary heart disease Heart disease Father Emphysema of lung Heart disease Unknown Hypertension No family history of bleeding disorder Aunt Breast cancer Son Pulmonary embolism Daughter Pulmonary embolism Denies family history of Ovarian cancer Prostate cancer Diabetes Myocardial infarction Lung cancer Colorectal cancer Stroke Social History Smoking Status: Never smoker Second Hand Exposure: Yes (FATHER SMOKED); Do You Dip or Chew Tobacco: No; Hx Alcohol Use: No Hx Substance Use: No Preferred Language: Micronesian Communication Ability: Effective Visual Impairment: Diminished Hearing Ability: Hard of Hearing Database Manager Required: No Beliefs That Will Affect Care: None marital status: Current Living Situation: Spouse current occupational status: retired Other Information That Helps Us Care for You: No Feels Safe at Home: Yes Safety Concerns: Feels Safe At This Time Childhood Exposure to Second-Hand Smoke: Yes Diet Comment: regular caffeine: Yes during the past year weight has: remained stable Dental Care, Regularly: Yes Physical Activity Frequency: Does not Exercise Seatbelt Use: always Sunscreen Use: Yes Assistive Devices: Cane, Denture - Upper, Glasses and Walker Assistive Devices Comment: CANE/WALKER PRN Review of Systems Review of Systems: All systems reviewed & are unremarkable except as noted in HPI & below Constitutional: as per Subjective / HPI Physical Exam Physical Exam: RLE NVSI +EHL/FHL/TA/GS SILT grossly, +2 DP pulse, compartments soft NT, limited painful ROM of the hip, antalgic gait. Constitutional: WD/WN, vitals as above Eyes: PERRL, conjunctivae normal, anicteric sclerae ENMT: external ear and nose normal, oropharynx normal Neck: trachea midline, no thyromegaly Respiratory: normal respiratory effort, lungs clear to auscultation Cardiovascular: RRR, no murmur, no edema Gastrointestinal (Abdomen): normal bowel sounds, soft, nontender, no hepatosplenomegaly Musculoskeletal: no cyanosis or clubbing, extremities motor strength 5/5 Skin: no rashes, warm and dry Neurologic: patellar DTR's 2+ bilat, sensation intact Psychiatric: A+Ox3, euthymic affect Lymphatic: no cervical or axillary lymphadenopathy Results & Data Results & Data ([facility]) Diagnostic Findings Multiple views of the hip demonstrates severe DJD with complete loss of the joint space. +osteophytes, +sclerosis, +subchondral cysts. Pre Admission Testing Addendum Laboratory Results PT 9.8 Seconds (9.0-12.0) 12/02/20 13:43 INR 1.0 (0.9-1.1) 12/02/20 13:43 APTT 26.0 Seconds (21.0-31.0) 12/02/20 13:43 Urine Color Yellow 12/02/20 13:43 Urine Appearance Clear (Clear) 12/02/20 13:43 Urine pH 6.5 (4.5-7.5) 12/02/20 13:43 Ur Specific [place] 1.021 (1.000-1.030) 12/02/20 13:43 Urine Protein Negative (Negative) 12/02/20 13:43 Urine Glucose (UA) Negative (Negative) 12/02/20 13:43 Urine Ketones Negative (Negative) 12/02/20 13:43 Urine Nitrite Negative (Negative) 12/02/20 13:43 Ur Leukocyte Esterase Negative (Negative) 12/02/20 13:43 Blood Type O Positive 12/02/20 13:43 Antibody Screen NEGATIVE 12/02/20 13:43
[~2020-12-28 06:38] MED LIST changes: +ACETAMINOPHEN 500 MG TAB PO SCH; -ATEN-175 PO; -CHOL1000 PO; +FAMOTIDINE 20 MG TAB PO SCH; +GABAPENTIN 300 MG CAP PO SCH; -LEVO50TA6 PO; +LR 500ML BOLUS, THEN 15ML/HR IV SCH; +METOCLOPRAMIDE HCL 10 MG TABLET PO SCH; -OMEP10CA4 PO; +ROPIVACAINE 0.5% HCL/PF 150 MG, BUPIVACAINE 0.75% MPF 20 ML, EPINEPHrine 30MG/30ML (OR ... INSTIL SCH; +TRANEXAMIC ACID 1,000 MG **IV Intra-op IV SCH; +TRANEXAMIC ACID 1,000 MG **IV Pre-op IV SCH; +dexAMETHasone 4 MG TAB PO SCH
[2020-12-28] MEDS ORDERED: BUPIVACAINE 0.5 % 5 MG/1 ML PF 10ML VIAL ONE (07:21)
[2020-12-28] MEDS ORDERED: MIDAZOLAM HCL 1 MG/ML 2ML VIAL ONE (07:27)
[2020-12-28] MEDS ORDERED: fentaNYL citrate 100 MCG/2 ML VIAL ONE (07:27)
[2020-12-28] MEDS ORDERED: ORTHO JOINT ANESTHETIC ONE (09:35)
--- NOTE | 2020-12-28 09:45 | History & Physical Bridge Note ---
Date of Service December 28, 2020 History & Physical Bridge Note I have examined the patient, reviewed the History & Physical and in the interval since the performance of the History & Physical I have noted the following changes of clinical significance: no changes noted
[2020-12-28] MEDS ORDERED: PROPOFOL IV EMULSION 10 MG/ML 20 ML VIAL IV ONE (10:11)
[2020-12-28] MEDS ORDERED: ePHEDrine sulfate 50 MG/ML SYR ONE (10:11)
[2020-12-28] MEDS ORDERED: ePHEDrine sulfate 50 MG/ML AMP IV PRN (10:29)
[2020-12-28] MEDS ORDERED: ATROPINE SULFATE 0.1 MG/ML 10ML SYR IV PRN (10:29)
[2020-12-28] MEDS ORDERED: ceFAZolin 2000MG 2,000 MG/15 ML SYR IV ONE (10:54)
--- NOTE | 2020-12-28 11:16 | Post Operative Brief Note ---
Immediate Post Op Note v1 Date of Surgery December 28, 2020 Pre & Post Diagnosis Operation Date: 12/28/20 09:20 Pre-Op Diagnosis: Degenerative joint disease of right hip Post-Op Diagnosis: Degenerative joint disease of right hip I identified the patient and participated in the time-out.: Yes Procedure Operation Date: 12/28/20 09:20 Actual Procedures p Right Total Hip Arthroplasty Posterior(Right) - Aldair Huber DO Surgeon Aldair Huber DO Panel Coverer Nathen Leiva Estimated Blood Loss 185 Findings Consistent with Post-Op Diagnosis Fluids See anesthesia report Specimens Femoral head Anesthesia Type Spinal MAC Complications none Disposition Disposition: Recovery Room Overlapping Procedure I was present for: the critical portions of procedure. I was immediately available: during the entire case. Back up surgeon: was not required during procedure.
--- NOTE | 2020-12-28 11:18 | Operative Report ---
Post Operative Report Pre & Post Diagnosis Operation Date: 12/28/20 09:20 Pre-Op Diagnosis: Degenerative joint disease of right hip Post-Op Diagnosis: Degenerative joint disease of right hip I identified the patient and participated in the time-out.: Yes Procedure Operation Date: 12/28/20 09:20 Actual Procedures p Right Total Hip Arthroplasty Posterior(Right) - Aldair Huber DO Surgeon Aldair Huber DO Financial Risk Manager Nathen Leiva Estimated Blood Loss 185 Findings Consistent with Post-Op Diagnosis Fluids See anesthesia report Specimens Femoral head Anesthesia Type Spinal MAC Complications none Disposition Disposition: Recovery Room Indications The patient is a 70-year-old female who presents with severe progressive right hip DJD who has failed outpatient conservative treatments. I indicated the patient for a total hip replacement and the risks and benefits were explained in detail which included but not limited to infection, bleeding, blood clot, damage to surrounding bone, nerves, vessels, soft tissue, hip dislocation, failure of the prosthesis, leg length discrepancy, need for additional surgery and . The patient agreed to proceed with replacement of the hip and informed consent was obtained. Appropriate clearances were obtained. Description of Procedure COMPONENTS USED: Kellee Biomet hip system: Acetabulum size 50 G7 osteo-Ti, femur size 9 standard extended offset, femoral head 36+3.5, liner 50x36, acetabular screw 30 mm x 1. Following induction of adequate spinal anesthesia, the patient was transferred to the OR table and placed in lateral decubitus position with left hip down. The right hip was prepped and draped in the typical sterile fashion. A timeout was performed, patient identified and site kathrine confirmed. Appropriate antibiotics were given. A standard posterolateral/Marlen-Langenbeck incision was made. Subcutaneous tissue was sharply dissected. Electrocautery was utilized for hemostasis. The fascia was incised throughout the length of the wound and retracted with the Charnley retractor. The bursa was taken down and the short external rotators were identified. The piriformis was tagged with #1 Vicryl. The short external rotators and capsule were divided from the posterior aspect of the femur using electrocautery. The posterior capsule was tagged with #1 Vicryl. Both external rotators and posterior capsule were swept posterior and protected, along with protecting the sciatic nerve. The hip was dislocated by flexion and internally rotation in a controlled manner and exposure of the femoral neck was gained with an old-style Hohmann and a blunt cobra retractor. A femoral cutting guide was utilized for making the appropriate level femoral neck cut with reciprocating saw. The femoral head was removed, measured and reserved on the back table. Next, attention was turned to the acetabulum. A posterior and anterior offset retractor was placed to gain adequate exposure. Acetabular labrum as well as posterior capsule elements were removed using electrocautery and forceps. Fovea centralis was cleared of all soft tissue. Sequential reaming was performed starting at 42 mm and carried up to a 49 mm and decision was made to proceed with impaction of a 50 mm G7 Osteo-Ti cup. This was impacted and held using a single 30 mm acetabular screw. The trial acetabular liner was placed at this time. Next, attention was turned to the proximal femur where a Bovie and pickup was used to further clear short external rotators from their insertion on the femur. Box osteotome and canal finder was used to gain access to the femoral canal and the lateral reamer on power was used to further open the proximal lateral canal. Sequentially rasping was carried up to a 9 which gave good fit and fill of the proximal femur. A trial reduction was carried out with a standard extended offset femoral neck component a 36+3.5 mm femoral head. The trial reduction was stable in all degrees of rotation with no [id number] impingement. The hip was dislocated, trial components were removed and access to the acetabulum was re-established. The trial liner was removed and the cup was irrigated to ensure all debris was removed. The final acetabular liner was inserted and properly seated in the cup. Access to the femur was once more gained and the size 9 femoral stem with standard extended offset was impacted into position. The hip was once more assessed with the 36+3.5 mm femoral head. Stability was accessed and found to be excellent with equal leg lengths. The hip was dislocated for the last time and the final 36+3.5 ceramic femoral head was impacted in place and the hip was reduced. Range of motion was checked once again and found to be stable. A Betadine soak was performed. After 3 minutes, the hip was once more irrigated with copious sterile saline solution with bacitracin. The kosta-incisional soft tissue was injected utilizing [place] ortho mix which includes a combination of Ropivicaine 0.5% 150mg, Bupivicaine 0.5%/Epinephrine 1:200,000 30ml, Toradol 30mg, Dexamethasone 4mg, Ketamine 10mg, Clonidine 100mcg and NSS 30ml Orthomix solution. The piriformis, external rotators and capsule were repaired to the greater trochanter through bone tunnels using #5 FiberWire. The fascia was closed using #1 Vicryl, subcutaneous tissue was closed using 2-0 Vicryl, and skin was closed with saqib. And a sterile dry dressing was applied which included kierra incisional VAC. The patient tolerated the procedure well and was transported to PACU in stable condition. Due to the complex nature of the procedure, the entire surgery was performed with the operational assistance of Nathen eLiva PA-C. The creative assistant, under direct supervision, was involved in the actual performance of all aspects of the surgical procedure including patient positioning, hemostasis, tissue retraction, instrument management and wound closure. I attest to the content of the Intraoperative Record and any orders documented therein. Any exceptions are noted below.
--- NOTE | 2020-12-28 12:07 | XRay Report ---
XR hip 1V RT w pelvis HISTORY: 70 years-old Female IN PACU - A/P PELVIS and LATERAL HIP right hip total joint arthroplast y COMPARISON: Pelvis and right hip radiographs 06/20/2019 TECHNIQUE: AP view the pelvis with crosstable lateral view of the right hip FINDINGS: Right hip total joint arthroplasty. Expected postoperative soft tissue swelling and deep tissue air w ith overlying skin saqib. No acute fracture, malalignment or unexpected opaque foreign body. Mild l eft hip osteoarthritis. IMPRESSION: Right hip total joint arthroplasty with expected postoperative changes. ACT 112: Negative or not required by law. The above report was generated using voice recognition software. It may contain grammatical, syntax o r spelling errors. Electronically signed by: Jesus Olivas M.D. 12/28/2020 12:05 PM
--- NOTE | 2020-12-28 12:20 | Anesthesiology Progress Note ---
Date of Service December 28, 2020 Anesthesia Post Procedure Vital Signs Vital Signs: Temp Pulse Pulse Resp BP BP Pulse Ox 12/28/20 12:15 36.2 C L 52 L 19 118/72 96 12/28/20 12:05 55 L 18 116/58 L 100 12/28/20 11:55 59 L 15 118/61 99 12/28/20 11:45 62 16 119/58 L 98 12/28/20 11:37 36.3 C L 64 21 116/57 L 98 12/28/20 07:55 36.8 C 53 L 18 148/70 H 98 12/28/20 06:45 36.7 C 64 18 158/77 H 98 Transfer of Care Handoff Completed per policy Notes Mental Status: alert / awake / arousable Patient Amnestic to Procedure: Yes Nausea / Vomiting: adequately controlled Pain: adequately controlled Airway Patency, RR, SpO2: stable & adequate BP & HR: stable & adequate Hydration State: stable & adequate Neuraxial Anesthesia: was administered and sensory block is resolving Anesthetic Complications: no major complications apparent
[2020-12-28] MEDS ORDERED: ONDANSETRON INJ 2 MG/ML 2 ML VIAL IV PRN (12:49)
[2020-12-28] MEDS ORDERED: MAGNESIUM HYDROXIDE SUSP 30 ML UDC PO PRN (12:49)
[2020-12-28] MEDS ORDERED: HYDROmorphone INJ 0.5 MG/0.5 ML SYR IV PRN (12:49)
[2020-12-28] MEDS ORDERED: NALOXONE HCL 0.4 MG/1 ML VIAL/CARP IV PRN (12:49)
[2020-12-28] MEDS ORDERED: METOCLOPRAMIDE HCL INJ 5 MG/ML 2 ML VIAL IV PRN (12:49)
[2020-12-28] MEDS ORDERED: bisacodyL 10 MG SUPP PR PRN (12:49)
[2020-12-28] MEDS ORDERED: diphenhydrAMINE Capsule 25 MG CAP PO PRN (12:49)
--- NOTE | 2020-12-28 13:06 | Anesthesiology Progress Note ---
Date of Service December 28, 2020 Anesthesia Post Procedure Vital Signs Vital Signs: Temp Pulse Pulse Resp BP BP Pulse Ox 12/28/20 12:30 52 L 17 133/65 96 12/28/20 12:15 36.2 C L 52 L 19 118/72 96 12/28/20 12:05 55 L 18 116/58 L 100 12/28/20 11:55 59 L 15 118/61 99 12/28/20 11:45 62 16 119/58 L 98 12/28/20 11:37 36.3 C L 64 21 116/57 L 98 12/28/20 07:55 36.8 C 53 L 18 148/70 H 98 12/28/20 06:45 36.7 C 64 18 158/77 H 98 Transfer of Care Handoff Completed per policy Notes Mental Status: alert / awake / arousable Patient Amnestic to Procedure: Yes Nausea / Vomiting: adequately controlled Pain: adequately controlled Airway Patency, RR, SpO2: stable & adequate BP & HR: stable & adequate Hydration State: stable & adequate Anesthetic Complications: no major complications apparent
[2020-12-28] MEDS: ACETAMINOPHEN 500 MG TAB PO SCH ×2 (13:32→22:33)
[2020-12-28] MEDS ORDERED: SODIUM CHLORIDE 0.9% 1000ML 1,000 ML IV SCH (14:00)
--- NOTE | 2020-12-28 14:13 | Orthopedic Progress Note ---
Date of Service December 28, 2020 Assessment & Plan (1) Degenerative joint disease of right hip: Status post right total hip arthroplasty -Ancef x24 -DVT prophylaxis: SCDs, teds, Lovenox daily -Weight-bear as tolerated right lower extremity -PT/OT -Postoperative x-ray demonstrates a well aligned well fixed prosthesis without fracture or dislocation A.m. labs DC planning Admission and Anticipated Discharge Date Admission Date: December 28, 2020 Subjective Post Operative Progress Note Patient seen sitting up in bed, comfortable, denies complaints, pain well controlled, no acute issues. Review of Systems Review of Systems: All systems reviewed & are unremarkable except as noted in HPI & below Constitutional: as per Subjective / HPI Physical Exam Physical Exam: RLE NVSI +EHL/FHL/TA/GS SILT grossly, +2 DP pulse, compartments soft NT, dressing cdi. Constitutional: WD/WN, vitals as above Results & Data ([place]) Vital Signs (Past 12 Hours) Vital Signs Temp Pulse Pulse Resp BP BP Pulse Ox 12/28/20 13:55 58 L 16 127/67 94 12/28/20 13:23 54 L 16 120/67 95 12/28/20 12:30 52 L 17 133/65 96 12/28/20 12:15 36.2 C L 52 L 19 118/72 96 12/28/20 12:05 55 L 18 116/58 L 100 12/28/20 11:55 59 L 15 118/61 99 12/28/20 11:45 62 16 119/58 L 98 12/28/20 11:37 36.3 C L 64 21 116/57 L 98 12/28/20 07:55 36.8 C 53 L 18 148/70 H 98 12/28/20 06:45 36.7 C 64 18 158/77 H 98
[2020-12-28] MEDS: ceFAZolin 2000MG 2,000 MG/15 ML SYR IV SCH (17:30)
[2020-12-28] MEDS: DOCUSATE SODIUM 100 MG CAP PO SCH (22:34)
[2020-12-28] MEDS: SENNA 8.6 MG TAB PO SCH (22:34)
[2020-12-29] MEDS: ceFAZolin 2000MG 2,000 MG/15 ML SYR IV SCH (02:28)
[2020-12-29] MEDS: PANTOprazole 40 MG TAB PO SCH (05:26)
[2020-12-29] MEDS: LEVOTHYROXINE SODIUM 50 MCG TABLET PO SCH (05:26)
[2020-12-29] MEDS: ACETAMINOPHEN 500 MG TAB PO SCH ×3 (05:26→21:17)
[2020-12-29 06:12] LABS: Basophils # (auto) 0.01 K/uL (0-0.2); Hematocrit (blood only) 39.6 % (37-47); Hemoglobin 13.4 g/dL (12.0-16.0); Immature Granulocytes # (auto) 0.07 K/uL (0.00-0.02); Immature Granulocytes % (auto) 0.3 %; Lymphocytes # (auto) 1.64 K/uL (1.2-3.4); Lymphocytes % (auto) 7.1 %; Mean Corpuscular Hemoglobin 29.3 pg (25-34); Mean Corpuscular Hgb Conc 33.8 g/dL (32-36); Mean Corpuscular Volume 86.5 fL (80-100); Mean Platelet Volume 10.9 fL (7.4-10.4); Monocytes # (auto) 1.85 K/uL (0.11-0.59); Monocytes % (auto) 8.1 %; Neutrophils # (auto) 19.38 K/uL (1.4-6.5); Neutrophils % (auto) 84.5 %; Platelet Count 229 K/uL (130-400); RDW Coefficient of Variation 14.9 % (11.5-14.5); RDW Standard Deviation 47.2 fL (36.4-46.3); Red Blood Count 4.58 M/uL (4.2-5.4); White Blood Count 22.95 K/uL (4.8-10.8)
[2020-12-29 06:45] LABS: BUN Creatinine Ratio 16.8 (10-20); Calcium 8.9 mg/dl (8.5-10.1); Creatinine Clr Calc Pharmacy 65.9 ml/min; Est GFR (African American) 71.2; Est GFR (Non-African American) 61.4; Potassium 3.6 mmol/L (3.5-5.1)
--- NOTE | 2020-12-29 07:20 | Orthopedic Progress Note ---
Date of Service December 29, 2020 Assessment & Plan (1) Degenerative joint disease of right hip: Status post right total hip arthroplasty POD#1 -Ancef x24 -DVT prophylaxis: SCDs, teds, Lovenox daily -Weight-bear as tolerated right lower extremity -PT/OT -Postoperative x-ray demonstrates a well aligned well fixed prosthesis without fracture or dislocation A.m. labs - as above, hgb 13.4 DC planning - home with Admission and Anticipated Discharge Date Admission Date: December 28, 2020 Subjective Post Operative Progress Note Patient seen sitting up in bed, comfortable, denies complaints, pain well controlled, no acute issues. Denies F/C/N/V/SOB/CP. Review of Systems Review of Systems: All systems reviewed & are unremarkable except as noted in HPI & below Constitutional: as per Subjective / HPI Physical Exam Physical Exam: RLE NVSI +EHL/FHL/TA/GS SILT grossly, +2 DP pulse, compartments soft NT, dressing cdi. Constitutional: WD/WN, vitals as above Results & Data ([place]) Vital Signs (Past 12 Hours) Vital Signs Temp Pulse Resp BP Pulse Ox 12/29/20 07:11 36.5 C 60 16 151/76 H 96 12/29/20 03:02 36.4 C L 60 16 154/81 H 96 12/28/20 22:36 36.4 C L 75 16 154/83 H 94 12/28/20 20:04 36.4 C L 93 H 18 146/80 H 94 Laboratory Results 12/29/20 12/29/20 12/28/20 Range/Units 05:34 05:34 07:48 WBC 22.95 H (4.8-10.8) K/uL RBC 4.58 (4.2-5.4) M/uL Hgb 13.4 (12.0-16.0) g/dL Hct 39.6 (37-47) % MCV 86.5 (80-100) fL MCH 29.3 (25-34) pg MCHC 33.8 (32-36) g/dL RDW Std Deviation 47.2 H (36.4-46.3) fL RDW Coeff of Jennifer 14.9 H (11.5-14.5) % Plt Count 229 (130-400) K/uL MPV 10.9 H (7.4-10.4) fL Immature Gran % (Auto) 0.3 % Neut % (Auto) 84.5 % Lymph % (Auto) 7.1 % [place] % (Auto) 8.1 % Eos % (Auto) 0.0 % Baso % (Auto) 0.0 % Neut # (Auto) 19.38 H (1.4-6.5) K/uL Lymph # (Auto) 1.64 (1.2-3.4) K/uL [place] # (Auto) 1.85 H (0.11-0.59) K/uL Eos # (Auto) 0.00 (0-0.5) K/uL Baso # (Auto) 0.01 (0-0.2) K/uL Immature Gran # (Auto) 0.07 H (0.00-0.02) K/uL Sodium 140 (136-145) mmol/L Potassium 3.6 (3.5-5.1) mmol/L Chloride 108 H (98-107) mmol/L Carbon Dioxide 25 (21-32) mmol/L Anion Gap 7.0 (3-11) BUN 16 (7-18) mg/dl Creatinine 0.93 (0.6-1.2) mg/dl Est Cr Clr Drug Dosing 65.9 ml/min Est GFR ( Amer) 71.2 Est GFR (Non-Af Amer) 61.4 BUN/Creatinine Ratio 16.8 (10-20) Glucose 130 H (70-99) mg/dl POC Glucose 95 (70-99) mg/dl Calcium 8.9 (8.5-10.1) mg/dl
[2020-12-29] MEDS: DOCUSATE SODIUM 100 MG CAP PO SCH ×2 (07:27→21:17)
[2020-12-29] MEDS: ATENOLOL 50 MG TABLET PO SCH (07:27)
[2020-12-29] MEDS: ATORVASTATIN 10 MG TAB PO SCH (07:28)
[2020-12-29] MEDS: ENOXAPARIN INJ 40 MG/0.4 ML SYR SQ SCH (07:29)
[2020-12-29] MEDS: MULTIVITAMIN TAB PO SCH (07:29)
[2020-12-29] MEDS: oxyCODONE HCL IR 5 MG TAB (IMMEDIATE RELEASE) PO PRN (08:30)
--- NOTE | 2020-12-29 11:01 | XRay Report ---
XR hip RT min 2V CLINICAL HISTORY: post op, increased pain COMPARISON: Right hip radiographs December 28, 2020. FINDINGS: Skin saqib are noted. Alignment of the total right hip arthroplasty is in anatomic. Ther e is no periprosthetic fracture or unexpected radiopaque foreign body. Acetabular screw is noted. IMPRESSION: Stable postoperative findings following total right hip arthroplasty. ACT 112: Negative or not required by law. Electronically signed by: Florentino Cervantes M.D. 12/29/2020 10:59 AM
[2020-12-29] MEDS: SENNA 8.6 MG TAB PO SCH (21:16)
[2020-12-30] MEDS: ACETAMINOPHEN 500 MG TAB PO SCH ×3 (05:55→21:01)
[2020-12-30] MEDS: LEVOTHYROXINE SODIUM 50 MCG TABLET PO SCH (05:56)
[2020-12-30 07:00] LABS: Basophils # (auto) 0.02 K/uL (0-0.2); Basophils % (auto) 0.1 %; Eosinophils % (auto) 0.5 %; Hematocrit (blood only) 41.3 % (37-47); Hemoglobin 13.8 g/dL (12.0-16.0); Immature Granulocytes # (auto) 0.07 K/uL (0.00-0.02); Immature Granulocytes % (auto) 0.4 %; Lymphocytes # (auto) 3.31 K/uL (1.2-3.4); Lymphocytes % (auto) 17.7 %; Mean Corpuscular Hemoglobin 29.2 pg (25-34); Mean Corpuscular Hgb Conc 33.4 g/dL (32-36); Mean Corpuscular Volume 87.5 fL (80-100); Monocytes # (auto) 2.12 K/uL (0.11-0.59); Monocytes % (auto) 11.4 %; Neutrophils # (auto) 13.03 K/uL (1.4-6.5); Neutrophils % (auto) 69.9 %; Platelet Count 240 K/uL (130-400); RDW Coefficient of Variation 15.2 % (11.5-14.5); RDW Standard Deviation 49.2 fL (36.4-46.3); Red Blood Count 4.72 M/uL (4.2-5.4); White Blood Count 18.65 K/uL (4.8-10.8)
[2020-12-30 07:50] LABS: BUN Creatinine Ratio 20.6 (10-20); Calcium 8.8 mg/dl (8.5-10.1); Creatinine Clr Calc Pharmacy 61.3 ml/min; Est GFR (African American) 65.2; Est GFR (Non-African American) 56.2; Potassium 3.4 mmol/L (3.5-5.1)
[2020-12-30] MEDS: oxyCODONE HCL IR 5 MG TAB (IMMEDIATE RELEASE) PO PRN ×2 (09:12→21:02)
[2020-12-30] MEDS: ENOXAPARIN INJ 40 MG/0.4 ML SYR SQ SCH (09:13)
[2020-12-30] MEDS: DOCUSATE SODIUM 100 MG CAP PO SCH ×2 (09:14→21:01)
[2020-12-30] MEDS: MULTIVITAMIN TAB PO SCH (09:14)
[2020-12-30] MEDS: ATENOLOL 50 MG TABLET PO SCH (09:14)
[2020-12-30] MEDS: PANTOprazole 40 MG TAB PO SCH (09:15)
[2020-12-30] MEDS: ATORVASTATIN 10 MG TAB PO SCH (09:15)
--- NOTE | 2020-12-30 11:51 | Orthopedic Progress Note ---
Date of Service December 30, 2020 Assessment & Plan (1) Degenerative joint disease of right hip: Status post right total hip arthroplasty POD#2 -Ancef x24 -DVT prophylaxis: SCDs, teds, Lovenox daily -Weight-bear as tolerated right lower extremity -PT/OT -Postoperative x-ray demonstrates a well aligned well fixed prosthesis without fracture or dislocation A.m. labs - as above, hgb 13.8 DC planning - home with POD#1 -Ancef x24 -DVT prophylaxis: SCDs, teds, Lovenox daily -Weight-bear as tolerated right lower extremity -PT/OT -Postoperative x-ray demonstrates a well aligned well fixed prosthesis without fracture or dislocation A.m. labs - as above, hgb 13.4 DC planning - home with Admission and Anticipated Discharge Date Admission Date: December 28, 2020 Subjective Post Operative Progress Note Patient seen sitting up in bed, comfortable, denies complaints, pain well controlled, no acute issues. Denies F/C/N/V/SOB/CP. Review of Systems Review of Systems: All systems reviewed & are unremarkable except as noted in HPI & below Constitutional: as per Subjective / HPI Physical Exam Physical Exam: RLE NVSI +EHL/FHL/TA/GS SILT grossly, +2 DP pulse, compartments soft NT, dressing cdi. Constitutional: WD/WN, vitals as above Results & Data ([facility]) Vital Signs (Past 12 Hours) Vital Signs Temp Pulse Resp BP BP Pulse Ox 12/30/20 09:06 67 131/81 12/30/20 06:49 145/79 H 12/30/20 06:41 36.4 C L 57 L 18 165/100 H 98 Laboratory Results 12/30/20 12/30/20 Range/Units 06:23 06:23 WBC 18.65 H (4.8-10.8) K/uL RBC 4.72 (4.2-5.4) M/uL Hgb 13.8 (12.0-16.0) g/dL Hct 41.3 (37-47) % MCV 87.5 (80-100) fL MCH 29.2 (25-34) pg MCHC 33.4 (32-36) g/dL RDW Std Deviation 49.2 H (36.4-46.3) fL RDW Coeff of Jennifer 15.2 H (11.5-14.5) % Plt Count 240 (130-400) K/uL MPV 11.0 H (7.4-10.4) fL Immature Gran % (Auto) 0.4 % Neut % (Auto) 69.9 % Lymph % (Auto) 17.7 % [place] % (Auto) 11.4 % Eos % (Auto) 0.5 % Baso % (Auto) 0.1 % Neut # (Auto) 13.03 H (1.4-6.5) K/uL Lymph # (Auto) 3.31 (1.2-3.4) K/uL [place] # (Auto) 2.12 H (0.11-0.59) K/uL Eos # (Auto) 0.10 (0-0.5) K/uL Baso # (Auto) 0.02 (0-0.2) K/uL Immature Gran # (Auto) 0.07 H (0.00-0.02) K/uL Sodium 139 (136-145) mmol/L Potassium 3.4 L (3.5-5.1) mmol/L Chloride 105 (98-107) mmol/L Carbon Dioxide 27 (21-32) mmol/L Anion Gap 7.0 (3-11) BUN 20 H (7-18) mg/dl Creatinine 1.00 (0.6-1.2) mg/dl Est Cr Clr Drug Dosing 61.3 ml/min Est GFR ( Amer) 65.2 Est GFR (Non-Af Amer) 56.2 BUN/Creatinine Ratio 20.6 H (10-20) Glucose 84 (70-99) mg/dl Calcium 8.8 (8.5-10.1) mg/dl
[2020-12-30] MEDS: SENNA 8.6 MG TAB PO SCH (21:01)
[2020-12-31] MEDS: oxyCODONE HCL IR 5 MG TAB (IMMEDIATE RELEASE) PO PRN ×3 (04:25→13:46)
[2020-12-31] MEDS: ACETAMINOPHEN 500 MG TAB PO SCH ×2 (05:24→13:47)
[2020-12-31] MEDS: LEVOTHYROXINE SODIUM 50 MCG TABLET PO SCH (05:25)
[2020-12-31 06:58] LABS: Basophils # (auto) 0.03 K/uL (0-0.2); Basophils % (auto) 0.2 %; Eosinophils # (auto) 0.25 K/uL (0-0.5); Eosinophils % (auto) 1.8 %; Hematocrit (blood only) 40.7 % (37-47); Hemoglobin 13.7 g/dL (12.0-16.0); Immature Granulocytes # (auto) 0.05 K/uL (0.00-0.02); Immature Granulocytes % (auto) 0.4 %; Lymphocytes # (auto) 3.35 K/uL (1.2-3.4); Lymphocytes % (auto) 23.7 %; Mean Corpuscular Hemoglobin 29.7 pg (25-34); Mean Corpuscular Hgb Conc 33.7 g/dL (32-36); Mean Corpuscular Volume 88.3 fL (80-100); Mean Platelet Volume 10.7 fL (7.4-10.4); Monocytes # (auto) 1.77 K/uL (0.11-0.59); Monocytes % (auto) 12.5 %; Neutrophils # (auto) 8.71 K/uL (1.4-6.5); Neutrophils % (auto) 61.4 %; Platelet Count 248 K/uL (130-400); RDW Coefficient of Variation 15.4 % (11.5-14.5); RDW Standard Deviation 50.1 fL (36.4-46.3); Red Blood Count 4.61 M/uL (4.2-5.4); White Blood Count 14.16 K/uL (4.8-10.8)
[2020-12-31 07:19] LABS: Est GFR (African American) 86.7 ml/min; Est GFR (Non-African American) 74.8 ml/min; Potassium 3.8 mmol/L (3.5-5.1)
[2020-12-31 07:20] LABS: BUN Creatinine Ratio 19.5 (10-20); Creatinine Clr Calc Pharmacy 77.5 ml/min
[2020-12-31] MEDS: DOCUSATE SODIUM 100 MG CAP PO SCH (08:19)
[2020-12-31] MEDS: ATORVASTATIN 10 MG TAB PO SCH (08:19)
[2020-12-31] MEDS: PANTOprazole 40 MG TAB PO SCH (08:20)
[2020-12-31] MEDS: MULTIVITAMIN TAB PO SCH (08:20)
[2020-12-31] MEDS: ENOXAPARIN INJ 40 MG/0.4 ML SYR SQ SCH (08:20)
[2020-12-31] MEDS: ATENOLOL 50 MG TABLET PO SCH (08:20)
--- NOTE | 2020-12-31 08:35 | Orthopedic Progress Note ---
Date of Service December 31, 2020 Assessment & Plan (1) Degenerative joint disease of right hip: Status post right total hip arthroplasty POD#3 -Ancef x24 -DVT prophylaxis: SCDs, teds, Lovenox daily -Weight-bear as tolerated right lower extremity -PT/OT -Postoperative x-ray demonstrates a well aligned well fixed prosthesis without fracture or dislocation A.m. labs - as above, hgb 13.7 DC planning - home with today POD#2 -Ancef x24 -DVT prophylaxis: SCDs, teds, Lovenox daily -Weight-bear as tolerated right lower extremity -PT/OT -Postoperative x-ray demonstrates a well aligned well fixed prosthesis without fracture or dislocation A.m. labs - as above, hgb 13.8 DC planning - home with POD#1 -Ancef x24 -DVT prophylaxis: SCDs, teds, Lovenox daily -Weight-bear as tolerated right lower extremity -PT/OT -Postoperative x-ray demonstrates a well aligned well fixed prosthesis without fracture or dislocation A.m. labs - as above, hgb 13.4 DC planning - home with Admission and Anticipated Discharge Date Admission Date: December 28, 2020 Subjective Post Operative Progress Note Patient seen sitting in chair at bedside, comfortable, denies complaints, pain well controlled, no acute issues. Denies F/C/N/V/SOB/CP. Review of Systems Review of Systems: All systems reviewed & are unremarkable except as noted in HPI & below Constitutional: as per Subjective / HPI Physical Exam Physical Exam: RLE NVSI +EHL/FHL/TA/GS SILT grossly, +2 DP pulse, compartments soft NT, dressing cdi. Constitutional: WD/WN, vitals as above Eyes: PERRL, conjunctivae normal, anicteric sclerae ENMT: external ear and nose normal, oropharynx normal Neck: trachea midline, no thyromegaly Respiratory: normal respiratory effort, lungs clear to auscultation Cardiovascular: RRR, no murmur, no edema Gastrointestinal (Abdomen): normal bowel sounds, soft, nontender, no hepatosplenomegaly Musculoskeletal: no cyanosis or clubbing, extremities motor strength 5/5 Skin: no rashes, warm and dry Neurologic: patellar DTR's 2+ bilat, sensation intact Psychiatric: A+Ox3, euthymic affect Lymphatic: no cervical or axillary lymphadenopathy Results & Data ([facility]) Vital Signs (Past 12 Hours) Vital Signs Temp Pulse Resp BP Pulse Ox 12/31/20 06:50 36.4 C L 64 16 123/74 96 12/30/20 23:11 36.6 C 86 16 139/80 98 Laboratory Results 12/31/20 12/31/20 Range/Units 06:32 06:32 WBC 14.16 H (4.8-10.8) K/uL RBC 4.61 (4.2-5.4) M/uL Hgb 13.7 (12.0-16.0) g/dL Hct 40.7 (37-47) % MCV 88.3 (80-100) fL MCH 29.7 (25-34) pg MCHC 33.7 (32-36) g/dL RDW Std Deviation 50.1 H (36.4-46.3) fL RDW Coeff of Jennifer 15.4 H (11.5-14.5) % Plt Count 248 (130-400) K/uL MPV 10.7 H (7.4-10.4) fL Immature Gran % (Auto) 0.4 % Neut % (Auto) 61.4 % Lymph % (Auto) 23.7 % [place] % (Auto) 12.5 % Eos % (Auto) 1.8 % Baso % (Auto) 0.2 % Neut # (Auto) 8.71 H (1.4-6.5) K/uL Lymph # (Auto) 3.35 (1.2-3.4) K/uL [place] # (Auto) 1.77 H (0.11-0.59) K/uL Eos # (Auto) 0.25 (0-0.5) K/uL Baso # (Auto) 0.03 (0-0.2) K/uL Immature Gran # (Auto) 0.05 H (0.00-0.02) K/uL Sodium 141 (136-145) mmol/L Potassium 3.8 (3.5-5.1) mmol/L Chloride 106 (98-107) mmol/L Carbon Dioxide 29 (21-32) mmol/L Anion Gap 6.0 (3-11) BUN 15 (7-18) mg/dl Creatinine 0.79 (0.6-1.2) mg/dl Est Cr Clr Drug Dosing 77.5 ml/min Est GFR ( Amer) 86.7 ml/min Est GFR (Non-Af Amer) 74.8 ml/min BUN/Creatinine Ratio 19.5 (10-20) Glucose 96 (70-99) mg/dl Calcium 9.0 (8.5-10.1) mg/dl
--- NOTE | 2020-12-31 21:50 | Discharge Summary ---
Date of Service December 31, 2020 Admission HPI Per Admitting Provider The patient is a 70 year old female who presents with complaints of severe right hip pain and DJD. The patient has failed outpatient conservative treatments to this point which included NSAIDs, activity modification, home exercise/walking program. The patient's pain and limited function have progressed to the point where they severely hinder their activities of daily living and they no longer tolerate exercise programs. They are requesting to proceed with total hip replacement surgery. Principal Diagnosis Right total hip replacement Discharge Exam RLE NVSI +EHL/FHL/TA/GS SILT grossly, +2 DP pulse, compartments soft NT, dressing cdi. Constitutional WD/WN, vitals as above Discharge Data Allergies Allergy/AdvReac Type Severity Reaction Status Date / Time ramipril Allergy Severe ANGIOEDEMA Verified 11/30/20 08:17 amlodipine Allergy Unknown Unknown Verified 11/30/20 08:17 chlorthalidone Allergy Unknown unknown Verified 11/30/20 08:17 doxycycline Allergy Unknown unknown Verified 11/30/20 08:17 hydrochlorothiazide Allergy Unknown Unknown Verified 11/30/20 08:17 [From Diovan HCT] indapamide Allergy Unknown Unknown Verified 11/30/20 08:17 losartan Allergy Unknown NON Verified 11/30/20 08:17 TOLERANT Penicillins Allergy Unknown UNKNOWN Verified 11/30/20 08:17 spironolactone Allergy Unknown unknown Verified 11/30/20 08:17 Sulfa (Sulfonamide Allergy Unknown "SULFA": Verified 11/30/20 08:17 Antibiotics) HIVES valsartan Allergy Unknown unknown Verified 11/30/20 08:17 cephalexin AdvReac Severe Diarrhea Verified 11/30/20 08:17 lisinopril AdvReac Unknown HEADACHE Verified 11/30/20 08:17 Procedures Performed Operation Date: 12/28/20 09:20 Actual Procedures p Right Total Hip Arthroplasty Posterior(Right) - Aldair Huber DO [facility] Course (1) Degenerative joint disease of right hip: The patient is a 70 -year-old female who presents with long standing history of severe right hip DJD and failed outpatient conservative treatments. The patient's symptoms have progressed to the point where it has been difficult to perform even normal activities of daily living. I indicated the patient for a right total hip arthroplasty, the risks, benefits and complications of the procedure include but not limited to infection, bleeding, damage to bone, nerves, vessels, surrounding soft tissue, may develop blood clots, loss of function, leg length discrepancy, dislocation, failure of the components, loosening of the components, the need for additional surgery and . The patient wished to proceed with surgery at this time and informed consent was obtained. Hospital Course: On 12/28/20 the patient was taken to the operating room, adequate anesthesia administered and underwent a right total hip arthroplasty. The patient tolerated the procedure well and was taken to the PACU in stable condition. Post-operatively the patient was started on a DVT ppx medication and given appropriate IV antibiotics. Consults were placed to physical therapy, occupational therapy and case management. On POD#1, the patient did well overnight and their pain was well controlled. -Ancef x24 -DVT prophylaxis: SCDs, teds, Lovenox daily -Weight-bear as tolerated right lower extremity -PT/OT -Postoperative x-ray demonstrates a well aligned well fixed prosthesis without fracture or dislocation A.m. labs - as above, hgb 13.4 DC planning - home with POD#2 -Ancef x24 -DVT prophylaxis: SCDs, teds, Lovenox daily -Weight-bear as tolerated right lower extremity -PT/OT -Postoperative x-ray demonstrates a well aligned well fixed prosthesis without fracture or dislocation A.m. labs - as above, hgb 13.8 DC planning - home with POD#3 -Ancef x24 -DVT prophylaxis: SCDs, teds, Lovenox daily -Weight-bear as tolerated right lower extremity -PT/OT -Postoperative x-ray demonstrates a well aligned well fixed prosthesis without fracture or dislocation A.m. labs - as above, hgb 13.7 DC planning - home with today The patients hospital stay was relatively uneventful and they were deemed stable by the orthopedic team and consultants to be discharged home with on 12/31/20. Discharge Instructions: Upon discharge the patient may weight bear as tolerates through their operative extremity. They were instructed to keep the incision clean and dry at all times. The patient may shower but should not submerge the incision, avoid bathing, pools and hot tubs. The patient was given a script for pain medication and should take as instructed. The patient was given a script for DVT ppx Lovenox 40mg daily and should take as directed. The patient was instructed to not drive or travel for long distances until cleared to do so. If the patient develops any symptoms of fevers, chills, nausea, vomiting, increased redness, swelling, pain or drainage from the surgical site, they should notify the office and/or proceed to the nearest emergency room. The patient should follow up in 10-14 days after surgery for their routine post-operative follow-up appointment and should call the office, to confirm the date and time. Total Time Total Time Spent Total Time Spent (In Minutes): >60 Discharge Plan Discharge Items Patient Disposition: Home - Home Health Services Reason For Visit: Unilateral Primary Osteoarthritis Hip Right Discharge Diagnosis: Right total hip replacement Condition on Discharge: Good Activity: Per Instructions section Lifting: Wait until after follow-up appointment Bathing: Keep incision dry Bathing Comment: No bathing, pools or hot tubs. Sexual Activity: Wait until after follow-up appointment Exercise/Sports: Wait until after follow-up appointment Driving/Machine Use: No driving. Weightbearing: Full weightbearing Non-emergency contact: Primary Care Provider and Surgeon Call non-emergency contact if: you have any medication questions, your symptoms worsen, your pain is not controlled, your pain is worsening, your pain is unusual for you, your pain is concerning for you, you have a fever, your temperature is above 101, your wound has increased redness, your wound has increased drainage and your wound pain has increased Follow-up/Referrals: Yumiko Raman DO [Primary Care Provider] - Diet: Regular Addtl Attending Provider Instructions: ACTIVITY RECOMMENDATIONS: SELF CARE INSTRUCTIONS AFTER TOTAL HIP REPLACEMENT Until the incision and soft tissues around your hip have healed, there is a possibility that the hip prosthesis could dislocate. A. Observe the following precautions to prevent dislocation: 1. Don't bend your hip greater than 90 degrees. 2. Avoid crossing your legs or ankles while standing or lying. 3. Sit with your feet placed 6 inches apart. 4. When sitting, keep your knees below your hips. Sit on a firm surface, avoid deep, soft chairs and couches. Use an elevated toilet seat in the bathroom. 5. Don't bend over at the waist. Use a long handled shoehorn and a sock aid to help you put on your shoes and socks. A billing administrator can help you apple picking supervisor objects that are too high or too low to reach. 6. Keep car riding to a minimum for at least one month after surgery. B. Your balance may be shaky for a while. Use crutches or a walker until directed by your doctor. C. Use hand rails when walking on stairs. D. Wear low heeled shoes with non-slip soles. E. Be sure that your floors are free of things that could trip you - throw rugs, electrical cords, small objects. Avoid wet and waxed floors, especially with crutches and canes. F. Try to walk several times a day with rest periods between. G. Continue with all the exercises taught to you in the hospital. Again, make walking a part of your daily routine. SPECIAL CARE INSTRUCTIONS: VERY IMPORTANT TO READ AND REVIEW A. You may still be at risk for phlebitis and blood clots. 1. Wear surgical stockings (KYLER hose) for 2 weeks after surgery to improve circulation and reduce swelling. 2. Take Lovenox 40mg daily for 4 weeks or as directed by your doctor. This is your blood thinner. 3. High risk patients may be prescribed a stronger blood thinner if necessary. 4. If you are on Coumadin normally, your family doctor/plastic shaper should monitor your blood work. Expect a phone call the day of or the day after bloodwork is drawn to adjust your dosage. B. You must take antibiotics before having dental work, bladder, bowel and other surgery. Your doctor will provide you with a permanent card to carry describing precautions. C. Call [facility] if you have a fever, redness or swelling around the incision, cloudy drainage from incision, or sudden increase in pain in your hip, not relieved by your regular pain medication. D. Please call the office at if you have any concerns or questions about your operation or recovery. * YOU MAY SHOWER, NO TUB BATHS UNTIL CLEARED BY YOUR DOCTOR. * WEAR KYLER HOSE 20 HOURS PER DAY FOR 2 WEEKS. * YOU SHOULD USE A WALKER OR CRUTCHES FOR 2-4 WEEKS. THIS WILL HELP PREVENT STRAIN ON YOUR HIP MUSCLE AND ALLOW IT TO HEAL PROPERLY. YOU MAY WEAN TO A CANE TOLERATED. * MOST PATIENTS WILL HAVE HOME NURSING FOR THERAPY. IF YOU DECIDE TO DO OUTPATIENT PHYSICAL THERAPY, PLEASE SCHEDULE THIS 3 TIMES PER WEEK. *MATTIE incisional vac is a special dressing covering your incision. This dressing provides a sterile dry environment while you are healing. The dressing is to be left in place for 7 days post-operatively. Your home nurse or surgeon will remove. If you develop any redness or blisters or have any questions notify your surgeon immediately. FOLLOW UP VISIT: If appointment is not already scheduled: Please call [facility] to make a follow-up appointment for 2 weeks after your surgery at . Pending Studies at Discharge: No Stand-Alone Forms: My [facility] Motorpaneer, Opioid Pain Management, Smoking Cessation Medications and DC Order Prescriptions: New enoxaparin 40 mg/0.4 mL Syringe 40 mg subcut Q24H Qty: 28 RF: 0 acetaminophen 500 mg Tablet 1,000 mg PO Q8 PRN (Reason: fever or pain) Qty: 90 RF: 0 oxycodone 5 mg Tablet 5 mg PO Q6H MDD 4 PRN (Reason: pain) Qty: 30 RF: 0 sennosides [Senokot] 8.6 mg Tablet 17.2 mg PO HS PRN (Reason: constipation) Qty: 30 RF: 0 Continued omeprazole 20 mg capsule,delayed release(DR/EC) 20 mg PO QAM Qty: 90 RF: 1 clotrimazole-betamethasone 1-0.05 % cream 1 applic topical BID PRN (Reason: IRRITATION) Qty: 45 RF: 0 (DME) rolling walker with seat See Rx Instructions .Route .MEDSUPPLY Qty: 1 RF: 0 atenolol 100 mg tablet 100 mg PO QAM Qty: 90 RF: 1 atorvastatin 10 mg tablet 10 mg PO QAM Qty: 90 RF: 1 levothyroxine 50 mcg tablet 50 mcg PO QAM Qty: 90 RF: 1 PreserVision AREDS-2 [id number] wm-[id number]-mg capsule 1 tab PO BID RF: 0 cholecalciferol (vitamin D3) [Vitamin D3] 50 mcg (2,000 unit) Capsule 50 mcg PO QAM RF: 0 Discharge Orders: Discharge Order (Routine); Ordered 12/31/20 Ordered By: Aldair Miranda/Other Patient Handouts: DVT Post Op Prevention, Preventing Deep Vein Thrombosis Admission Data Admit Date/Time: 12/28/20 11:45 Attending Provider: Aldair Huber Admit Provider: Aldair Huber Primary Care Provider: Yumiko Raman Other Providers: Matt [employer] [facility] Other Interventions: Discharge Summary Assessment (RN) Last Done: 12/31/20 13:58
== END 2020-12-31 15:50 | disposition home health service (06) ==
LOC: ASU 06:38 → 3E 06:38

== ENCOUNTER 2025-04-25 14:29 | Observation (INO) ==
--- NOTE | 2025-04-25 14:57 | Emergency Department Note ---
Impression & Plan Chest pain, Arm pain, Elevated troponin ED Provider Note NAME: LYNN CURTIS AGE: 75 SEX: F : 1950 ARRIVES VIA: Walk-In INFORMANT: Patient ED PROVIDER(S): Adam Saenz DO CHIEF COMPLAINT: Chest pain, elevated heart rate HPI: Patient is a 75-year-old female with a past medical history of hypertension, anxiety, CVA and dyslipidemia who presents to the ER for chest pain. She notes that she has been getting intermittent "knots" in her chest which started around 1230 today. She notes they come and go last for several minutes. She does have some associated left arm pain with it. No shortness of breath but she does feel her heart being elevated with this. No belly pain. No nausea, vomiting or diarrhea. No dysuria, urgency, or frequency. No other exacerbating or remitting factors. ADDITIONAL HISTORY OBTAINED: Per HPI Chronic Medical/Social Conditions Affecting Care: Per HPI PAST MEDICAL HISTORY:See Below PAST SURGICAL HISTORY:See Below FAMILY HISTORY:See Below SOCIAL HISTORY:See Below HOME MEDICATIONS:See Below ALLERGIES:See Below VITALS:See Below PHYSICAL EXAMINATION: GENERAL: Sitting up in bed, alert, well appearing, well nourished, no distress, non-toxic EYE EXAM: normal conjunctiva. PERRL and EOM's grossly intact. OROPHARYNX: no exudate, no erythema, lips, buccal mucosa, and tongue normal and mucous membranes are moist NECK: supple, no nuchal rigidity, no adenopathy, non-tender LUNGS: Clear to auscultation. Normal chest wall mechanics HEART: no murmurs, S1 normal and S2 normal ABDOMEN: abdomen soft, non-tender, normo-active bowel sounds, no masses, no rebound or guarding. UPPER EXTREMITIES: upper extremities are grossly normal. Radial pulses are equal bilaterally LOWER EXTREMITIES: No pitting edema. Calves are equal bilaterally NEURO EXAM: Normal sensorium, cranial nerves II-XII grossly intact, normal speech, no gross weakness of arms, no gross weakness of legs. MEDICAL DECISION MAKING: Patient is a 75-year-old female who presents ER for the above-stated complaint. IV was established and blood work was obtained. D-dimer was elevated but age- adjusted it is negative. Labs show no significant leukocytosis or anemia. BMP with LFTs bilirubin was unremarkable. Troponin was elevated slightly at 14. Lipase was normal. Chest x-ray was clean. Patient was given aspirin upon arrival but was pain-free. She was updated bedside. With her symptoms and slightly elevated troponin did discuss case with the hospitalist for further evaluation management treatment. Consults/Care Managements Discussions: Per MDM Triage Nursing notes reviewed. Limited review of prior medical records performed Vital Signs: reviewed and remarkable for no significant abnormalities Differential diagnosis: Cardiac ischemia, aortic dissection, pulmonary embolism, pneumothorax, pneumonia, pericarditis, myocarditis, esophageal rupture, GERD, cholecystitis, pancreatitis, musculoskeletal, as well as other pathologies. ER treatment provided: See below Diagnostics interpreted by me include EKG and cardiac monitoring as listed below: -Cardiac Monitoring: An order was placed for continuous cardiac monitoring. The monitor shows a rate of 101 with sinus rhythm. -ECG: Sinus tachycardia rate of 105 Left axis No PVCs QTc 429 -Laboratory studies:Interpreted by me as stated above in MDM and shown below. Imaging studies: Xrays: As interpreted by me: Portable AP upright 1 view of the chest shows no focal infiltrate CTs show: none Procedures:none Critical Care: None Past Med/Surg History Problem List (Updated 04/25/25 @ 19:02 by Adam Saenz DO) Elevated troponin (Acute) Arm pain (Acute) Chest pain (Acute) Systolic murmur at cardiac apex Numbness of left hand Left arm numbness Left arm pain Tachycardia Chest pain B12 deficiency BPPV (benign paroxysmal positional vertigo) Urinary frequency Irritable bowel syndrome (IBS) Hypertension (Chronic) Chronic osteoarthritis (Acute) Vitamin D deficiency Osteoarthritis of hip Anxiety Osteoporosis Lumbar disc disease Compression deformity of vertebra pt states "feeling good" presently Prediabetes diet controlled Small vessel disease, cerebrovascular (Acute) Noted on 2018 MRI- on statin per PCP records Mild sleep apnea (Acute) no device>could not tolerate cpap Hypothyroidism Gastroesophageal reflux disease (Chronic) Dyslipidemia AMD (age related macular degeneration) loss of central 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 Barnes 01/01/25 Skin, neck, excision: - Seborrheic keratosis H/O excision of mass (01/01/25) Excision of lesion anterior neck in office Dr. Barnes Status post right hip replacement (12/2020) History of esophagogastroduodenoscopy (EGD) History of temporal artery biopsy (05/2018) b/l negative S/P hernia repair (03/2013) incarcerated umbilical hernia repair w/ strangulated omentum, Dr. Jaimes H/O umbilical hernia repair (11/2016) open repair recurrent umbilical hernia w/ compartment separation onlay Marlex Mesh, Dr Barnes Hx of colonoscopy History of left knee replacement Family History Mother Coronary heart disease Heart disease Father Emphysema of lung Heart disease Unknown Hypertension No family history of bleeding disorder Aunt Breast cancer Son Pulmonary embolism Daughter Pulmonary embolism Denies family history of Ovarian cancer Prostate cancer Diabetes Myocardial infarction Lung cancer Colorectal cancer Stroke Social History Smoking Status: Never smoker Second Hand Exposure: Yes (as a child); Do You Dip or Chew Tobacco: No; Hx Alcohol Use: Yes Alcohol type: wine Hx Substance Use: No Preferred Language: Maldivian Communication Ability: Effective Visual Impairment: Diminished Hearing Ability: Hard of Hearing Cotton Bag Sewer Required: No Beliefs That Will Affect Care: None marital status: Current Living Situation: Spouse current occupational status: retired How many Children do You have: 3 Feels Safe at Home: Yes Childhood Exposure to Second-Hand Smoke: Yes Diet: low salt Diet Comment: low salt caffeine: Yes during the past year weight has: remained stable Dental Care, Regularly: Yes Physical Activity Frequency: 3-4 Times per Week Seatbelt Use: always Sunscreen Use: Yes Assistive Devices: Cane, Denture - Upper and Glasses Allergies Allergies Allergy/AdvReac Type Severity Reaction Status Date / Time amlodipine Allergy Severe headache Verified 04/25/25 16:02 or chest pain/unsure per patient chlorthalidone Allergy Severe headache Verified 04/25/25 16:02 or chest pain/unsure per patient hydrochlorothiazide Allergy Severe headache Verified 04/25/25 16:02 [From Diovan HCT] or chest pain/unsure per patient indapamide Allergy Severe headache Verified 04/25/25 16:02 or chest pain/unsure per patient losartan Allergy Severe headache Verified 04/25/25 16:02 or chest pain/unsure per patient Penicillins Allergy Severe pt Verified 04/25/25 16:02 unsure/just remember a bad reaction ramipril Allergy Severe ANGIOEDEMA Verified 04/25/25 16:02 spironolactone Allergy Severe headache Verified 04/25/25 16:02 or chest pain/unsure per patient Sulfa (Sulfonamide Allergy Severe pt Verified 04/25/25 16:02 Antibiotics) unsure/remember a bad reaction valsartan Allergy Severe headache Verified 04/25/25 16:02 or chest pain/unsure per patient doxycycline Allergy Unknown unknown Verified 04/25/25 16:02 cephalexin AdvReac Severe Diarrhea Verified 04/25/25 16:02 lisinopril AdvReac Intermediate HEADACHE Verified 04/25/25 16:02 Home Meds Home Medications Medication Instructions Recorded Confirmed vit C 250 mg-vit E 90 mg-zinc 40 1 tab PO BID 03/04/19 04/25/25 mg-copper 1 [id number] capsule (PreserVision AREDS-2) peg 400-propylene glycol (PF) 0.4 1 drp ophthalmic (eye) BID PRN Eye 04/17/21 04/25/25 %-0.3 % eye drops in a dropperette Irritation (Systane (PF)) denosumab 60 mg/mL subcutaneous 60 mg subcut DIRECTED 06/07/22 04/25/25 syringe (Prolia) cholecalciferol (vitamin D3) 50 4,000 mcg PO QAM 06/12/23 04/25/25 mcg (2,000 unit) capsule (Vitamin D3) faricimab-svoa 6 mg/0.05 mL 6 mg intravitreal .COMPLEX 08/01/24 04/25/25 intravitreal solution (Vabysmo) albuterol sulfate 90 mcg/actuation 2 inh inhalation QID PRN Shortness 04/25/25 04/25/25 aerosol inhaler Of Breath Or Wheezing atorvastatin 10 mg tablet 10 mg PO HS 04/25/25 04/25/25 cranberry fruit 450 mg tablet 450 mg PO DAILY 04/25/25 04/25/25 (cranberry) furosemide 20 mg tablet (Lasix) 20 mg PO QAM 04/25/25 04/25/25 levothyroxine 75 mcg tablet 75 mcg PO DAILYBB 04/25/25 04/25/25 nifedipine 30 mg tablet,extended 30 mg PO HS 04/25/25 04/25/25 release 24 hr Previous Rx's Medication Instructions Recorded triamcinolone acetonide 0.5 % 1 applic topical BID PRN skin 09/17/24 topical cream irritation #60 grams omeprazole 20 mg capsule,delayed 20 mg PO HS #90 caps 11/25/24 release telmisartan 80 mg tablet 80 mg PO QAM #90 tabs 03/04/25 Results & Data (ED) Vital Signs Vital Signs - 24 hr 04/25/25 14:29 04/25/25 14:29 04/25/25 14:52 Temperature 36.6 C Temperature Source Temporal Artery Scan Pulse Rate 114 H Pulse Rate [Apical] 104 H Respiratory Rate 18 20 Respiratory Effort / Characteristics Respiratory Depth Respiratory Pattern Blood Pressure 146/79 H Blood Pressure [Left Arm] 150/75 H Blood Pressure Mean 101 Blood Pressure Mean [Left Arm] 100 Pulse Oximetry 98 98 Oxygen Delivery Method Room Air Room Air Sepsis Recent Fever Within 48 Hours No Sepsis New/Unexplained Change in Mental Status N/A Sepsis Action Taken by Nursing No Action Required 04/25/25 14:52 04/25/25 15:01 04/25/25 15:43 Temperature Temperature Source Pulse Rate 104 H 102 H Pulse Rate [Apical] 97 H Respiratory Rate 20 16 Respiratory Effort / Characteristics Non-Labored Spontaneous Respiratory Depth Normal Respiratory Pattern Regular Blood Pressure Blood Pressure [Left Arm] 149/87 H Blood Pressure Mean Blood Pressure Mean [Left Arm] 107 Pulse Oximetry 98 98 Oxygen Delivery Method Room Air Room Air Sepsis Recent Fever Within 48 Hours Sepsis New/Unexplained Change in Mental Status Sepsis Action Taken by Nursing 04/25/25 17:00 Temperature Temperature Source Pulse Rate Pulse Rate [Apical] 99 H Respiratory Rate 22 Respiratory Effort / Characteristics Non-Labored Spontaneous Respiratory Depth Normal Respiratory Pattern Blood Pressure Blood Pressure [Left Arm] 141/83 H Blood Pressure Mean Blood Pressure Mean [Left Arm] 102 Pulse Oximetry 99 Oxygen Delivery Method Room Air Sepsis Recent Fever Within 48 Hours Sepsis New/Unexplained Change in Mental Status Sepsis Action Taken by Nursing Laboratory Data 04/25/25 14:41 04/25/25 14:41 Lab Results 04/25/25 Range/Units 14:41 WBC 9.22 (4.8-10.8) K/ul RBC 5.17 (4.20-5.40) M/uL Hgb 14.8 (12.0-16.0) g/dl Hct 45.0 (37.0-47.0) % MCV 87.0 (80.0-100.0) fL MCH 28.6 (25.0-34.0) pg MCHC 32.9 (32.0-36.0) g/dL RDW Std Deviation 47.6 H (36.4-46.3) fL RDW Coeff of Jennifer 14.8 H (11.5-14.5) % Plt Count 249 (130-400) K/uL MPV 9.6 (9.4-12.4) fL Immature Gran % (Auto) 0.2 % Neut % (Auto) 67.5 % Lymph % (Auto) 21.6 % Cecil % (Auto) 9.2 % Eos % (Auto) 1.1 % Baso % (Auto) 0.4 % Neut # (Auto) 6.22 (1.40-6.50) K/uL Lymph # (Auto) 1.99 (1.20-3.40) K/uL Cecil # (Auto) 0.85 H (0.11-0.59) K/uL Eos # (Auto) 0.10 (0.00-0.50) K/uL Baso # (Auto) 0.04 (0.00-0.20) K/uL Immature Gran # (Auto) 0.02 (0.01-0.20) K/uL D-Dimer 660 H* (0-500) ug/L FEU Sodium 138 (136-145) mmol/L Potassium 3.7 (3.5-5.1) mmol/L Chloride 103 (98-107) mmol/L Carbon Dioxide 27 (21-32) mmol/L Anion Gap 8 (3-11) BUN 14 (6-23) mg/dl Creatinine 0.90 (0.6-1.2) mg/dl Est Cr Clr Drug Dosing Not Reportable eGFR 65.84 BUN/Creatinine Ratio 15.6 (10-20) Glucose 107 H (70-99(Fasting)) mg/dl Calcium 9.7 (8.6-10.3) mg/dl Total Bilirubin 0.4 (0.2-1.0) mg/dl AST 19 (13-39) U/L ALT 14 (7-52) U/L Alkaline Phosphatase 140 H (34-104) U/L Troponin I High Sens 14.3 H (0-14) pg/ml Total Protein 7.2 (6.0-8.3) gm/dl Albumin 3.8 (3.4-5.0) gm/dl Globulin 3.4 (2.5-4.0) gm/dl Albumin/Globulin Ratio 1.1 (0.9-2) Lipase 13 (11-82) U/L Administered Medications Discontinued Medications Aspirin (Aspirin Chew 324 Mg) 324 mg PO NOW STA Stop: 04/25/25 14:53 Last Admin: 04/25/25 14:59 Dose: 324 mg Documented By: AVM Sodium Chloride (Nss) 500 mls @ 999 mls/hr IV .Q31M ONE Stop: 04/25/25 15:22 Last Infusion: 04/25/25 15:31 Dose: Infused Documented By: Admin: 04/25/25 15:00 Dose: 999 mls/hr Documented By: AVM Sodium Chloride (Nss) 500 mls @ 999 mls/hr IV .Q31M ONE Stop: 04/25/25 16:14 Last Infusion: 04/25/25 17:10 Dose: Infused Documented By: Admin: 04/25/25 16:34 Dose: 999 mls/hr Documented By: BRADY Imaging Data Radiologist's Impression: Chest X-Ray 04/25/25 14:33 XR chest 1V portable CLINICAL HISTORY: Chest pain, nonspecific COMPARISON STUDY: 12/14/2024 FINDINGS: Single view portable chest is unchanged allowing for technical differences. There is no airspace opacity or pleural effusion. There is no pneumothorax. The heart and pulmonary vascularity are unremarkable IMPRESSION: Stable exam; no acute process ACT 112: Negative or not required by law. Electronically signed by: Celeste Rocha M.D. 04/25/2025 3:29 PM Cervical Spine X-Ray 04/25/25 17:31 Clinical history: Pain Technique: 5 views of the cervical spine are submitted for review Findings: The cervical vertebrae are in normal alignment with no listhesis seen. No fracture is identified. No focal osseous lesion is evident. No prevertebral soft tissue swelling is noted. There is mild disc space narrowing at C5-6 and C6-7 and to a lesser extent at C3-4 and C4-5. There is uncovertebral and facet joint osteoarthritis throughout the cervical spine Impression: Multilevel degenerative disc disease and osteoarthritis Electronically signed by Joni Taylor 04-25-2025 6:27 PM Discharge Plan Visit Data Chief Complaint: Cardiac Assessment Stated Complaint: PAIN IN SHOULDER AND NUMBNESS IN FINGERS ED Provider: Adam Saenz Discharge Problem: Chest pain, Arm pain, Elevated troponin Condition: Fair Forms Stand Alone Forms: My [facility] Prescriptions Prescriptions: No Action cholecalciferol (vitamin D3) [Vitamin D3] 50 mcg (2,000 unit) capsule 4,000 mcg PO QAM omeprazole 20 mg capsule,delayed release(DR/EC) 20 mg PO HS Qty: 90 1RF telmisartan 80 mg tablet 80 mg PO QAM Qty: 90 1RF Prolia 60 mg/mL syringe 60 mg subcut DIRECTED Rx Instructions: Every 6 months PreserVision AREDS-2 [id number] capsule 1 tab PO BID Vabysmo 6 mg/0.05 mL solution 6 mg intravitreal .COMPLEX Rx Instructions: 6 mg intravitreal [id number]; triamcinolone acetonide 0.5 % cream 1 applic topical BID PRN (Reason: skin irritation) Qty: 60 1RF Systane (PF) 0.4-0.3 % Dropperette 1 drp OPHTHALMIC (EYE) BID PRN (Reason: Eye Irritation) nifedipine 30 mg tablet extended release 24hr 30 mg PO HS atorvastatin 10 mg tablet 10 mg PO HS levothyroxine 75 mcg tablet 75 mcg PO DAILYBB furosemide [Lasix] 20 mg tablet 20 mg PO QAM albuterol sulfate 90 mcg/actuation HFA aerosol inhaler 2 inh inhalation QID PRN (Reason: Shortness Of Breath Or Wheezing) cranberry 450 mg Tablet 450 mg PO DAILY Rx Instructions: administer with a meal Referrals Referrals: Yumiko Raman DO [Primary Care Provider] - Discharge Problem: Chest pain Qualifiers: Chest pain type: unspecified Qualified Code(s): R07.9 - Chest pain, unspecified Arm pain Qualifiers: Laterality: unspecified laterality Qualified Code(s): M79.603 - Pain in arm, unspecified
[2025-04-25] MEDS: ASPIRIN CHEW 324 MG PO STA (14:59)
[2025-04-25] MEDS: SODIUM CHLORIDE 0.9% 500 ML IV ONE ×2 (15:00→16:34)
[2025-04-25 15:10] LABS: Hematocrit (blood only) 45.0 % (37.0-47.0); Hemoglobin 14.8 g/dl (12.0-16.0); Immature Granulocytes # (auto) 0.02 K/uL (0.01-0.20); Immature Granulocytes % (auto) 0.2 %; Mean Corpuscular Hemoglobin 28.6 pg (25.0-34.0); Mean Corpuscular Volume 87.0 fL (80.0-100.0); Platelet Count 249 K/uL (130-400); RDW Standard Deviation 47.6 fL (36.4-46.3); Red Blood Count 5.17 M/uL (4.20-5.40); White Blood Count 9.22 K/ul (4.8-10.8)
--- NOTE | 2025-04-25 15:31 | XRay Report ---
XR chest 1V portable CLINICAL HISTORY: Chest pain, nonspecific COMPARISON STUDY: 12/14/2024 FINDINGS: Single view portable chest is unchanged allowing for technical differences. There is no air space opacity or pleural effusion. There is no pneumothorax. The heart and pulmonary vascularity are unremarkable IMPRESSION: Stable exam; no acute process ACT 112: Negative or not required by law. Electronically signed by: Celeste Rocha M.D. 04/25/2025 3:29 PM
[2025-04-25 15:32] LABS: Alanine Aminotransferase 14 U/L (7-52); Albumin Globulin Ratio 1.1 (0.9-2); Alkaline Phosphatase 140 U/L (34-104); Anion Gap 8 (3-11); Bilirubin,Total 0.4 mg/dl (0.2-1.0); Blood Urea Nitrogen 14 mg/dl (6-23); Calcium 9.7 mg/dl (8.6-10.3); Carbon Dioxide 27 mmol/L (21-32); Chloride 103 mmol/L (98-107); Globulin 3.4 gm/dl (2.5-4.0); Glucose 107 mg/dl (70-99(Fasting)); Lipase 13 U/L (11-82); Potassium 3.7 mmol/L (3.5-5.1); Sodium 138 mmol/L (136-145); Total Protein 7.2 gm/dl (6.0-8.3)
[2025-04-25] MEDS ORDERED: ALBUTEROL HFA 8 GM INHALER INH PRN (16:46)
--- NOTE | 2025-04-25 17:22 | History & Physical Report ---
Date of Service April 25, 2025 Assessment & Plan (1) Chest pain: (2) Tachycardia: (3) Left arm pain: (4) Numbness of left hand: (5) Systolic murmur at cardiac apex: Plan #Chest pain/Tachycardia/systolic murmur - Brief episode of chest pain around noon 04/25 lasting approximately 1 min, has now resolved - High sensitivity troponin: 14.3, will repeat this study in the morning. Unlikely to be cardiac in nature with low troponin level, quick resolution of chest symptoms, and [place] risk factors low with Female sex, non-smoker, normal lipids, pre-diabetes (a1c: 6.2). Positives are HTN with ongoing treatment. - Age adjusted D-dimer value (660) negative, no SOB, and brief chest pain makes PE etiology of chest pain very unlikely - Patient will be on continuous cardiac monitoring overnight, tachycardia component potentially from stopping 15 years of atenolol therapy 04/13/25 and patient potential volume depletion w/o water consumption since 7am - EKG significant for sinus tachycardia, Dobutamine stress echo negative for ischemia January 2024 - 1L bolus NSS given in ED - Echocardiogram in AM, recheck high sensitivity troponin now. CCM overnight - CBC/BMP QAM #L. arm pain/L. fingertip numbness - Likely musculoskeletal based on description, seems to be unrelated to chest pain - Cervical x-ray ordered - Continue to monitor Chronic problems: HLD: Continue Atorvastatin 40mg HTN: Continue Losartan 100mg (Home medication: Telmisartan 80mg QAM) and Procardia XL 30mg PO QHS GERD: Continue Protonix 40mg PO QHS Hypothyroidism: Continue Levothyroxine 75mcg QD Asthma: Albuterol sulfate 2 puffs PRN DVT proph: Enoxaparin 40mg QAM FEN/GI: Heart healthy diet started History of Present Illness Chief Complaint: Chest pain, L. arm pain Primary Care Provider: Yumiko Raman DO Bronwyn Mittal is a 75 y/o F with a past medical hx of B12 deficiency, BPPV, urinary frequency, IBS, hypertension, osteoarthritis, osteoporosis, lumbar disk disease, pre-diabetes arriving to the [facility] ED due to a feeling of left sided chest tightness and discomfort lasting approximately 1 minute. After this patient has had L. shoulder pain and arm pain/soreness with numbness and tingling in the fingers of her L. hand. Patient reports that her L. arm symptoms lasted from 12pm to approximately 4pm and now her symptoms are improving without chest discomfort and reduced L. arm pain. Patient reports that she felt that her HR was increased during the day and used a pulse oximeter and noticed that her HR was elevated to the 120s. Patient does endorse that she has recently been instructed to stop her Atenolol medication on 04/13/25 and that she was previously on this medication for approximately 15 years. She also mentions that she regularly has good water intake, but did not drink any fluids since approximately 7am this morning. Patient does still endorse some L. forearm soreness with slight numbness of her L. finger tips but reports that the discomfort has largely resolved. Patient does endorse some R. low back pain and hip pain, but reports that this is chronic pain and has been occurring for a while. Patient denies ongoing chest pain, SOB, cough, wheeze, abdominal pain, nausea, and vomiting. Patient denies any recent illness, fevers, and chills. Currently patient remains afebrile and hemodynamically stable. ED course: CBC/CMP: wnl, glucose slightly elevated 106, Alk phos: 140 EKG: Sinus tachycardia High sensitivity troponin: 14.3 D-dimer: 660 (age adjusted normal) CXR: Negative for acute abnormalities Allergies Allergy/AdvReac Type Severity Reaction Status Date / Time amlodipine Allergy Severe headache Verified 04/25/25 16:02 or chest pain/unsure per patient chlorthalidone Allergy Severe headache Verified 04/25/25 16:02 or chest pain/unsure per patient hydrochlorothiazide Allergy Severe headache Verified 04/25/25 16:02 [From Diovan HCT] or chest pain/unsure per patient indapamide Allergy Severe headache Verified 04/25/25 16:02 or chest pain/unsure per patient losartan Allergy Severe headache Verified 04/25/25 16:02 or chest pain/unsure per patient Penicillins Allergy Severe pt Verified 04/25/25 16:02 unsure/just remember a bad reaction ramipril Allergy Severe ANGIOEDEMA Verified 04/25/25 16:02 spironolactone Allergy Severe headache Verified 04/25/25 16:02 or chest pain/unsure per patient Sulfa (Sulfonamide Allergy Severe pt Verified 04/25/25 16:02 Antibiotics) unsure/remember a bad reaction valsartan Allergy Severe headache Verified 04/25/25 16:02 or chest pain/unsure per patient doxycycline Allergy Unknown unknown Verified 04/25/25 16:02 cephalexin AdvReac Severe Diarrhea Verified 04/25/25 16:02 lisinopril AdvReac Intermediate HEADACHE Verified 04/25/25 16:02 Home Medications Medication Instructions Recorded Confirmed Type vit C 250 mg-vit E 90 mg-zinc 40 1 tab PO BID 03/04/19 04/25/25 History mg-copper 1 [id number] capsule (PreserVision AREDS-2) peg 400-propylene glycol (PF) 0.4 1 drp ophthalmic (eye) BID PRN Eye 04/17/21 04/25/25 History %-0.3 % eye drops in a dropperette Irritation (Systane (PF)) denosumab 60 mg/mL subcutaneous 60 mg subcut DIRECTED 06/07/22 04/25/25 History syringe (Prolia) cholecalciferol (vitamin D3) 50 4,000 mcg PO QAM 06/12/23 04/25/25 History mcg (2,000 unit) capsule (Vitamin D3) faricimab-svoa 6 mg/0.05 mL 6 mg intravitreal .COMPLEX 08/01/24 04/25/25 History intravitreal solution (Vabysmo) triamcinolone acetonide 0.5 % 1 applic topical BID PRN skin 09/17/24 04/25/25 Rx topical cream irritation #60 grams omeprazole 20 mg capsule,delayed 20 mg PO HS #90 caps 11/25/24 04/25/25 Rx release telmisartan 80 mg tablet 80 mg PO QAM #90 tabs 03/04/25 04/25/25 Rx albuterol sulfate 90 mcg/actuation 2 inh inhalation QID PRN Shortness 04/25/25 04/25/25 History aerosol inhaler Of Breath Or Wheezing atorvastatin 10 mg tablet 10 mg PO HS 04/25/25 04/25/25 History cranberry fruit 450 mg tablet 450 mg PO DAILY 04/25/25 04/25/25 History (cranberry) furosemide 20 mg tablet (Lasix) 20 mg PO QAM 04/25/25 04/25/25 History levothyroxine 75 mcg tablet 75 mcg PO DAILYBB 04/25/25 04/25/25 History nifedipine 30 mg tablet,extended 30 mg PO HS 04/25/25 04/25/25 History release 24 hr Past Med/Surg History Problem List (Updated 04/25/25 @ 19:02 by Adam Saenz DO) Elevated troponin (Acute) Arm pain (Acute) Chest pain (Acute) Systolic murmur at cardiac apex Numbness of left hand Left arm numbness Left arm pain Tachycardia Chest pain B12 deficiency BPPV (benign paroxysmal positional vertigo) Urinary frequency Irritable bowel syndrome (IBS) Hypertension (Chronic) Chronic osteoarthritis (Acute) Vitamin D deficiency Osteoarthritis of hip Anxiety Osteoporosis Lumbar disc disease Compression deformity of vertebra pt states "feeling good" presently Prediabetes diet controlled Small vessel disease, cerebrovascular (Acute) Noted on 2017 MRI- on statin per PCP records Mild sleep apnea (Acute) no device>could not tolerate cpap Hypothyroidism Gastroesophageal reflux disease (Chronic) Dyslipidemia AMD (age related macular degeneration) loss of central 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 Barnes 01/01/25 Skin, neck, excision: - Seborrheic keratosis H/O excision of mass (01/01/25) Excision of lesion anterior neck in office Dr. Barnes Status post right hip replacement (12/2020) History of esophagogastroduodenoscopy (EGD) History of temporal artery biopsy (05/2018) b/l negative S/P hernia repair (03/2013) incarcerated umbilical hernia repair w/ strangulated omentum, Dr. Jaimes H/O umbilical hernia repair (11/2016) open repair recurrent umbilical hernia w/ compartment separation onlay Marlex Mesh, Dr Barnes Hx of colonoscopy History of left knee replacement Family History Mother Coronary heart disease Heart disease Father Emphysema of lung Heart disease Unknown Hypertension No family history of bleeding disorder Aunt Breast cancer Son Pulmonary embolism Daughter Pulmonary embolism Denies family history of Ovarian cancer Prostate cancer Diabetes Myocardial infarction Lung cancer Colorectal cancer Stroke Social History Smoking Status: Never smoker Second Hand Exposure: Yes (as a child); Do You Dip or Chew Tobacco: No; Hx Alcohol Use: Yes Alcohol type: wine Hx Substance Use: No Preferred Language: Mongolian Communication Ability: Effective Visual Impairment: Diminished Hearing Ability: Hard of Hearing 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 Required: No Beliefs That Will Affect Care: None marital status: Current Living Situation: Spouse current occupational status: retired How many Children do You have: 3 Feels Safe at Home: Yes Childhood Exposure to Second-Hand Smoke: Yes Diet: low salt Diet Comment: low salt caffeine: Yes during the past year weight has: remained stable Dental Care, Regularly: Yes Physical Activity Frequency: 3-4 Times per Week Seatbelt Use: always Sunscreen Use: Yes Assistive Devices: Cane, Denture - Upper and Glasses Physical Exam Physical Exam: General: patient resting comfortably, NAD, non-toxic in appearance, answers qu estions appropriately. Skin: warm, dry, intact HEENT: NC/AT, anicteric sclera, conjunctiva without injection, moist mucus membranes. Heart: +S1/S2, regular, mild systolic murmur auscultated at second intercostal space on left Lungs: equal air entry bilaterally, no rales/rhonchi/wheezes Abd: +BS, soft, NT/ND Ext: warm, no clubbing/cyanosis or edema Neuro: nonfocal, speech intact, no facial droop, moving all extremities. Results & Data Results & Data Vital Signs (Past 12 Hours) Vital Signs Temp Pulse Pulse Resp BP BP Pulse Ox 04/25/25 17:00 99 H 22 141/83 H 99 04/25/25 15:43 97 H 16 149/87 H 98 04/25/25 15:01 102 H 04/25/25 14:52 104 H 20 98 04/25/25 14:52 104 H 20 150/75 H 98 04/25/25 14:29 04/25/25 14:29 36.6 C 114 H 18 146/79 H 98 O2 Del Method 04/25/25 17:00 Room Air 04/25/25 15:43 Room Air 04/25/25 15:01 04/25/25 14:52 Room Air 04/25/25 14:52 Room Air 04/25/25 14:29 Room Air 04/25/25 14:29 Code Status & VTE Plan VTE Prophylaxis Plan VTE Prophylaxis will be ordered: Yes Supervising Physician Co-Signing Physician Notes I personally examined the patient and verified morgan points of history and exam, discussed case, and agree with decision making and plan documented by Dr. Hendrickson. Question how patient is a 75-year-old female with past medical history pertinent for hypertension, hyperlipidemia, TASH, hypothyroidism, prediabetes, GERD, and astma on admission for evaluation of chest pain and tachycardia. Patient rep orts nonexertional sensation of chest tightness on the left side with radiation down left arm and numbness and tingling sensation along the left arm to the left hand. Initial troponin was very mildly elevated. No acute changes on ECG. On exam patient appears comfortable, non diaphoretic, conjunctiva clear, mucosa moist, non-labored breathing, lungs clear to auscultation bilaterally, no rales/rhonchi/wheezing, heart with regular rate and rhythm, 1/6 systolic murmur, bowel sounds present and no tenderness in the abdomen, lower extremities without edema. Agree with ACS rule out with monitoring on telemetry, checking echocardiogram, and follow-up troponin. Last dobutamine stress echo in 01/2024 negative for ischemia. Resident Activity Tracking Resident Involvement: Resident Care Provided Care Provided: Adult Hospital Medicine
--- NOTE | 2025-04-25 17:58 | Electrocardiogram Report ---
Test Reason : Blood Pressure : */* mmHG Vent. Rate : 105 BPM Atrial Rate : 105 BPM P-R Int : 196 ms QRS Dur : 88 ms QT Int : 340 ms P-R-T Axes : 27 -20 75 degrees QTcB Int : 449 ms Sinus tachycardia Moderate voltage criteria for LVH, may be normal variant Abnormal ECG When compared with ECG of 17-Apr-2021 19:32, Vent. rate has increased by 47 bpm Confirmed by Juanpablo Gee ([id number]) on 04/25/2025 5:57:33 PM Referred By: Confirmed By: Juanpablo Gee
--- NOTE | 2025-04-25 18:27 | XRay Report ---
Clinical history: Pain Technique: 5 views of the cervical spine are submitted for review Findings: The cervical vertebrae are in normal alignment with no listhesis seen. No fracture is identified. No focal osseous lesion is evident. No prevertebral soft tissue swelling is noted. There is mild disc space narrowing at C5-6 and C6-7 and to a lesser extent at C3-4 and C4-5. There is uncovertebral and facet joint osteoarthritis throughout the cervical spine Impression: Multilevel degenerative disc disease and osteoarthritis Electronically signed by Joni Taylor 04-25-2025 6:27 PM
[2025-04-25] MEDS: NIFEdipine EXTENDED REL 30 MG TABCR PO SCH (20:45)
[2025-04-25] MEDS: ATORVASTATIN 10 MG TAB PO SCH (20:45)
[2025-04-25] MEDS ORDERED: ONDANSETRON INJ 2 MG/ML 2 ML VIAL IV PRN (23:33)
[2025-04-25] MEDS ORDERED: MELATONIN 3 MG TAB PO PRN (23:33)
[2025-04-25] MEDS ORDERED: POLYETHYLENE (MIRALAX) 17 GM PACK PO PRN (23:33)
[2025-04-25] MEDS ORDERED: ACETAMINOPHEN 325 MG TAB PO PRN (23:33)
[2025-04-26] MEDS: ENOXAPARIN INJ 40 MG/0.4 ML SYR SQ ONE
[2025-04-26] MEDS: LEVOTHYROXINE SODIUM 75 MCG TABLET PO SCH (06:22)
[2025-04-26] MEDS: LOSARTAN POTASSIUM 50 MG TAB PO SCH (08:32)
[2025-04-26] MEDS: FUROSEMIDE 20 MG TAB PO SCH (08:33)
--- NOTE | 2025-04-26 10:21 | Discharge Summary ---
Date of Service April 26, 2025 Admission HPI Per Admitting Provider Bronwyn Mittal is a 75 y/o F with a past medical hx of B12 deficiency, BPPV, urinary frequency, IBS, hypertension, osteoarthritis, osteoporosis, lumbar disk disease, pre-diabetes arriving to the [facility] ED due to a feeling of left sided chest tightness and discomfort lasting approximately 1 minute. After this patient has had L. shoulder pain and arm pain/soreness with numbness and tingling in the fingers of her L. hand. Patient reports that her L. arm symptoms lasted from 12pm to approximately 4pm and now her symptoms are improving without chest discomfort and reduced L. arm pain. Patient reports that she felt that her HR was increased during the day and used a pulse oximeter and noticed that her HR was elevated to the 120s. Patient does endorse that she has recently been instructed to stop her Atenolol medication on 04/13/25 and that she was previously on this medication for approximately 15 years. She also mentions that she regularly has good water intake, but did not drink any fluids since approximately 7am this morning. Patient does still endorse some L. forearm soreness with slight numbness of her L. finger tips but reports that the discomfort has largely resolved. Patient does endorse some R. low back pain and hip pain, but reports that this is chronic pain and has been occurring for a while. Patient denies ongoing chest pain, SOB, cough, wheeze, abdominal pain, nausea, and vomiting. Patient denies any recent illness, fevers, and chills. Currently patient remains afebrile and hemodynamically stable. ED course: CBC/CMP: wnl, glucose slightly elevated 106, Alk phos: 140 EKG: Sinus tachycardia High sensitivity troponin: 14.3 D-dimer: 660 (age adjusted normal) CXR: Negative for acute abnormalities Admission Exam Per Admitting Provider General: patient resting comfortably, NAD, non-toxic in appearance, answers questions appropriately. Skin: warm, dry, intact HEENT: NC/AT, anicteric sclera, conjunctiva without injection, moist mucus membranes. Heart: +S1/S2, regular, mild systolic murmur auscultated at second intercostal space on left Lungs: equal air entry bilaterally, no rales/rhonchi/wheezes Abd: +BS, soft, NT/ND Ext: warm, no clubbing/cyanosis or edema Neuro: nonfocal, speech intact, no facial droop, moving all extremities. Principal Diagnosis Chest pain, L. arm pain Discharge Exam General: patient resting comfortably, NAD, non-toxic in appearance, answers questions appropriately. Skin: warm, dry, intact HEENT: NC/AT, anicteric sclera, conjunctiva without injection, moist mucus membranes. Heart: +S1/S2, regular, mild systolic murmur auscultated at second intercostal space on left Lungs: equal air entry bilaterally, no rales/rhonchi/wheezes Abd: +BS, soft, NT/ND Ext: warm, no clubbing/cyanosis or edema Neuro: nonfocal, speech intact, no facial droop, moving all extremities. Discharge Data Allergies Allergy/AdvReac Type Severity Reaction Status Date / Time amlodipine Allergy Severe headache Verified 04/25/25 16:02 or chest pain/unsure per patient chlorthalidone Allergy Severe headache Verified 04/25/25 16:02 or chest pain/unsure per patient hydrochlorothiazide Allergy Severe headache Verified 04/25/25 16:02 [From Diovan HCT] or chest pain/unsure per patient indapamide Allergy Severe headache Verified 04/25/25 16:02 or chest pain/unsure per patient losartan Allergy Severe headache Verified 04/25/25 16:02 or chest pain/unsure per patient Penicillins Allergy Severe pt Verified 04/25/25 16:02 unsure/just remember a bad reaction ramipril Allergy Severe ANGIOEDEMA Verified 04/25/25 16:02 spironolactone Allergy Severe headache Verified 04/25/25 16:02 or chest pain/unsure per patient Sulfa (Sulfonamide Allergy Severe pt Verified 04/25/25 16:02 Antibiotics) unsure/remember a bad reaction valsartan Allergy Severe headache Verified 04/25/25 16:02 or chest pain/unsure per patient doxycycline Allergy Unknown unknown Verified 04/25/25 16:02 cephalexin AdvReac Severe Diarrhea Verified 04/25/25 16:02 lisinopril AdvReac Intermediate HEADACHE Verified 04/25/25 16:02 Consultations 04/25/25 15:47 ED Decision to Admit Stat Hospital Course (1) Chest pain: (2) Tachycardia: (3) Left arm pain: (4) Numbness of left hand: (5) Systolic murmur at cardiac apex: Plan #Chest pain/Tachycardia/systolic murmur - Brief episode of chest pain around noon 04/25 lasting approximately 1 min, has now resolved - High sensitivity troponin: 14.3, will repeat this study in the morning. Unlikely to be cardiac in nature with low troponin level, quick resolution of chest symptoms, and [place] risk factors low with Female sex, non-smoker, normal lipids, pre-diabetes (a1c: 6.2). Positives are HTN with ongoing treatment. - Age adjusted D-dimer value (660) negative, no SOB, and brief chest pain makes PE etiology of chest pain very unlikely - Patient will be on continuous cardiac monitoring overnight, tachycardia component potentially from stopping 15 years of atenolol therapy 04/13/25 and patient potential volume depletion w/o water consumption since 7am - EKG significant for sinus tachycardia, Dobutamine stress echo negative for ischemia January 2024 - 1L bolus NSS given in ED - Echocardiogram in AM, recheck high sensitivity troponin now. CCM overnight - Repeat troponin 15.1, TTE completed: wnl. Continues to deny palpitations and chest pain. - Plans for cardiology outpatient f/u on d/c #L. arm pain/L. fingertip numbness - Likely musculoskeletal based on description, seems to be unrelated to chest pain - Cervical x-ray ordered: positive for degenerative disc disease and osteoarthritis from C3-C7 - Pain and numbness/tingling in L. arm resolved - Order referral to OMT with Dr. Castillo outpatient at d/c #Chronic low back pain/severe osteoarthritis - Typically R. sided low back pain with exertion, patient reports pulling/tightening pain when ambulating without support - Thoracic x-ray (04/26/25): age-indeterminate sclerosis and potential compression deformity at T4, 25% height reduction - Lumbar x-ray (04/26/25): L5 acute appearing superior endplate compression deformity, 35-40% height reduction - MRI Lumbar spine 2020: Shows similar L5 chronic compression deformity with Schmorl's node formation at superior L5 endplate - Discussed findings with radiologist Dr. Juanpablo Montesinos who noted that L5 changes may indeed be chronic based on report from previous MRI imaging, but difficult to say when correlating with new x-ray findings - On d/c referral to Dr. Angel/orthopedics placed, patient is established and will call orthopedic office on Monday to request appointment to evaluate spine c hanges and potential need for new MRI imaging Chronic problems: HLD: Continue Atorvastatin 40mg HTN: Losartan 100mg inpatient, Continue Telmisartan 80mg QAM and Procardia XL 30mg PO QHS at home - Patient with reported headache and chest pain adverse reaction to most anti- HTN meds including ARBs/ACEs/CCB/thiazides/spironolactone, however patient tolerated Losartan in this visit with no headaches/chest pain, re-evaluate allergies GERD: Continue Protonix 40mg PO QHS Hypothyroidism: Continue Levothyroxine 75mcg QD Asthma: Albuterol sulfate 2 puffs PRN DVT proph: Enoxaparin 40mg QAM FEN/GI: Heart healthy diet started Total Time Total Time Spent Total Time Spent (In Minutes): See attending attestation Discharge Plan Discharge Items Patient Disposition: Home - Self-Care Reason For Visit: CHEST PAIN, L. ARM PAIN Discharge Diagnosis: Chest pain, L. arm pain Condition on Discharge: Fair Activity: Per Instructions section Non-emergency contact: Primary Care Provider Call non-emergency contact if: your symptoms worsen and your pain is not controlled Follow-up/Referrals: Yumiko Raman DO [Primary Care Provider] - 05/05/25 9:20 am Viraj Castillo DO [Physician] - (Musculoskeletal back pain with hx of osteoarthritis in cervical, thoracic, and lumbar regions and chronic L. arm sor eness) Manuel Angel DO [Surgeon] - (Patient d/c from hospital for chest pain r/o. Lumbar x-ray positive for compression deformity L5 and thoracic x-ray with compression deformity at T4. Lumbar MRI 2020 with similar L5 compression deformity findings. ) Gaudencio Manning DO [Physician] - (Would like to establish care. Patient with hospital visit for chest pain, cardiac r/o. dobutamine stress echo completed last year and TTE completed today wnl) Diet: Regular Addtl Attending Provider Instructions: You were admitted to the hospital for a brief episode of L. sided chest discomfort lasting approximately a minute with left sided arm pain, soreness and tingling/numbness in your L. fingertips. You were treated with IV fluids and a cardiac work-up was completed to check on your heart. Initial evaluation was largely negative with very low troponins and when these were rechecked they remained very low making cardiac damage very unlikely. A d- dimer was also obtained that can show the probability of a clot in the legs or in the lungs and this study was negative, additionally these clots are also less likely without leg pain, soreness, swelling or difficulty breathing. Today and echocardiogram was completed to check on the function of your heart as a very subtle murmur was heard on exam. This is likely related to your mitral valve that did show trace regurgitation on your previous dobutamine stress echocardiogram completed last year, which otherwise was largely normal showing no evidence of irregular heart beats or lack of blood flow to your heart. The echo completed today showed no major changes from your last study other than some aortic valve sclerosis without tightening or back flow from this valve, however your heart's pump function is healthy and is able to adequately supply the rest of your body with blood. While admitted, cervical spine x-rays were completed that did show osteoarthritis and degenerative disc disease in your neck and thoracic and lumbar x-rays were ordered to be completed outpatient, but due to patient's back pain, imaging was completed today and are pending radiologist interpretation, but my interpretation is multi-level osteoarthritis and degenerative disc disease seen more in the lumbar spine but also with involvement in the thoracic spine. You are already being treated for these conditions with vitamin supplements and your Prolia injections and can continue regular follow-up with your PCP Dr. Raman. Your PCP did request these x-rays and now that these are completed she will likely want to follow up within a week of this hospital stay. It is a good idea to establish with a triage registered nurse after your visit with us, and thus a referral has been placed with cardiology and the details can be found below and you should expect a call to schedule an appointment next week. Additionally, as it is likely that your L. arm pain and soreness is related to musculoskeletal strain, an OMT (osteopathic manipulative treatment) referral has been made with Dr. Castillo's office, and you can similarly expect a call within the next week to schedule an appointment for an OMT evaluation and therapy. This therapy can also improve your lower back pain and ambulation. A discharge summary will be sent to your primary care physician to ensure continuity of care. Please bring this discharge summary with you to your next office appointment so that your provider can review it at that time. Follow-up appointments: Make a follow-up appointment with your PCP within the next week. It is very important that you follow up with them shortly after discharge from the hospital. Keep all your follow-up appointments as already scheduled. If you cannot make an appointment, notify your provider. As described above, referrals have been placed to cardiology and OMT and you should be receiving a call in the next week to schedule these appointments Medications: Your medication list has been reviewed and reconciled upon discharge to ensure accuracy and continuity of care. An updated list of all your medications is included with your hospital discharge paperwork. Please review this list closely, and make note of any changes. A new medication called Meloxicam 15mg was added to your medication list. Please take half of this tablet for your lower back pain. Do not exceed 2 doses of this medication or 15mg total per day. This medication should be used for breakthrough back pain in between doses of Tylenol, and I expect that you will need this medication while you are exerting yourself and walking around as you typically do not have back pain at rest. Please do not operate heavy machinery or drive while on this medication and be aware that this medication can be sedating and make you more tired than usual. Take your medications as instructed; do not skip a dose of your medicines. Make sure all of your doctors know every medicine you are taking (including prio-ypy-uikzygp medicines, vitamins, and supplements). Call your primary care provider before taking any new medicines (including uzmk-xoa-dnamrsg medicines, vitamins, and supplements), because some of these may interact with your current medications, or may make your symptoms worse. Tell your primary care provider if you cannot afford your medications. CONTACT YOUR PRIMARY CARE PROVIDER if you experience any of the following: Difficulty following your treatment plan, or difficulty taking medications CALL 911 OR GO TO THE EMERGENCY DEPARTMENT if you experience any of the following: Sudden, severe abdominal pain or nausea/vomiting Severe chest pain, or chest pain that radiates (moves) to your jaw or arm Sudden, severe shortness of breath or difficulty breathing Thank you for allowing us to participate in your care. Pending Studies at Discharge: No Stand-Alone Forms: My [employer], Smoking Cessation Medications and DC Order Prescriptions: New meloxicam 15 mg tablet 15 mg PO DAILY Qty: 30 0RF Continued cholecalciferol (vitamin D3) [Vitamin D3] 50 mcg (2,000 unit) capsule 4,000 mcg PO QAM omeprazole 20 mg capsule,delayed release(DR/EC) 20 mg PO HS Qty: 90 1RF telmisartan 80 mg tablet 80 mg PO QAM Qty: 90 1RF Prolia 60 mg/mL syringe 60 mg subcut DIRECTED Rx Instructions: Every 6 months PreserVision AREDS-2 [id number] ff-fuks-oa-mg capsule 1 tab PO BID Vabysmo 6 mg/0.05 mL solution 6 mg intravitreal .COMPLEX Rx Instructions: 6 mg intravitreal T03uhren; triamcinolone acetonide 0.5 % cream 1 applic topical BID PRN (Reason: skin irritation) Qty: 60 1RF Systane (PF) 0.4-0.3 % Dropperette 1 drp OPHTHALMIC (EYE) BID PRN (Reason: Eye Irritation) nifedipine 30 mg tablet extended release 24hr 30 mg PO HS atorvastatin 10 mg tablet 10 mg PO HS levothyroxine 75 mcg tablet 75 mcg PO DAILYBB furosemide [Lasix] 20 mg tablet 20 mg PO QAM albuterol sulfate 90 mcg/actuation HFA aerosol inhaler 2 inh inhalation QID PRN (Reason: Shortness Of Breath Or Wheezing) cranberry 450 mg Tablet 450 mg PO DAILY Rx Instructions: administer with a meal Discharge Orders: Discharge Order (Routine); Ordered 04/26/25 Ordered By: Rodolfo Hendrickson Admission Data Admit Date/Time: 04/25/25 17:21 Attending Provider: Yuly Landers Admit Provider: Rodolfo Hendrickson Primary Care Provider: Yumiko Raman Other Providers: Audi Dickinson Other Interventions: Discharge Summary Assessment (RN) Last Done: 04/26/25 14:12 Supervising Physician Co-Signing Physician Notes I personally examined the patient and verified morgan points of history and exam, discussed case, and agree with decision making and plan documented by Dr. Hendrickson. Question how patient is a 75-year-old female with past medical history pertinent for hypertension, hyperlipidemia, TASH, hypothyroidism, prediabetes, GERD, and astma on admission for evaluation of chest pain and tachycardia. Patient reports nonexertional sensation of chest tightness on the left side with radiation down left arm and numbness and tingling sensation along the left arm to the left hand. On telemetry, patient with sinus rates 80s to 120s. Patient was chronically on atenolol therapy and this was recently discontinued; patient recently initiated on nifedipine which may be contributing to tachycardia. Has history of adverse reactions to multiple antihypertensives. BP controlled during hospitalization. No chest pain symptoms during admission. Patient would benefit from establishing with cardiology outpatient, referral placed. Patient appears comfortable on exam, lungs clear b/l to auscultation, regular rate and rhythm, hypertonicity of bilateral trapezius, paraspinals, musculature of the back. Patient also complaining of chronic back pain. X-rays ordered by PCP completed, show acute L5 superior endplate compression deformity in addition to possible compression deformity of her thoracic spine at T4. Noted history of severe osteoporosis, no DEXA on file. Last lumbar MRI 2020 report scanned into chart. Patient follows with orthopedics at [facility], referral placed for spine ortho evaluation. Patient will follow up closely with PCP. Total attending time 40 min Resident Activity Tracking Resident Involvement: Resident Care Provided Care Provided: Adult [facility]
[2025-04-26 12:20] VITALS: BP 128/78; RESP 18; TEMP 97.3; O2SAT 98
--- NOTE | 2025-04-26 12:26 | XCELERA ---
[id number] [id number]
--- NOTE | 2025-04-26 14:05 | Communication Note ---
Date of Service: April 26, 2025 By CMS guidelines, a determination that the admission or continued stay is not medically necessary has been made by a member of the UR committee and omar byrd for this hospital stay, therefore a Code 44 will be completed and the Inpatient admission will be changed to outpatient.
--- NOTE | 2025-04-26 14:06 | Communication Note ---
Date of Service: April 26, 2025 By CMS guidelines, a determination that the admission or continued stay is not medically necessary has been made by a member of the UR committee and a ph ysician for this hospital stay, therefore a Code 44 will be completed and the Inpatient admission will be changed to outpatient.
[2025-04-26 14:14] VITALS: PULSE 85
--- NOTE | 2025-04-26 14:54 | XRay Report ---
Exam: XR lumbar spine, 3 views, thoracic spine 4 views History: Back pain Comparison: None available. Findings: AP and lateral views the lumbar spine were obtained. 5 lumbar type vertebral bodies are assumed for the purpose of this dictation. L5 superior endplate compression deformity, with approximately 35 to 40% height loss, appears likely acute. An anterior wedge deformity at L1 appears likely chronic. Normal lumbar lordosis is maintained. There is a single vertebral body in the upper thoracic spine, at approximately T4, demonstrating an area of superior and plate sclerosis anteriorly, with apparent mild, less than 25% height loss, which may represent an age-indeterminate fracture. There is multilevel degenerative changes of the lumbar spine. Multilevel marginal osteophytes of the lumbar spine. There are diffuse anterior flowing osteophytes of the thoracic spine.. Vascular calcifications. The visualized bowel gas pattern is non-obstructive. The bones appear osteopenic. Impression: 1. L5 acute appearing superior endplate compression deformity. 2. There is an apparent age-indeterminate anterosuperior area of sclerosis and possible compression deformity in the upper thoracic spine, at approximately T4. Electronically signed by Juanpablo Montesinos 04-26-2025 2:54 PM
[2025-04-26] MEDS ORDERED: ENOXAPARIN INJ 40 MG/0.4 ML SYR SQ SCH (21:00)
== END 2025-04-26 14:30 | disposition home or self-care (01) | DRG 313 ==
LOC: SUATTDRO → ED 14:29 → INTOOBSV 17:21 → EDINP 17:21 → 4W 04-26 02:00